=== PATIENT | male | born 1940 | race Asian ===

== ENCOUNTER 2016-12-01 08:00 | Outpatient (CLI) | payer MEDICARE ==
[2016-12-01 20:19] LABS: BASOPHILS # (AUTO) 0.1 10^3/uL (0.0-0.1); BASOPHILS % (AUTO) 0.9 %; EOSINOPHILS # (AUTO) 0.1 10^3/uL (0.0-0.7); EOSINOPHILS % (AUTO) 1.4 %; HCT - HEMATOCRIT 41.8 % (42.0-52.0); HGB - HEMOGLOBIN 13.7 g/dL (14.0-18.0); LYMPHOCYTES # (AUTO) 0.9 10^3/uL (1.5-3.5); LYMPHOCYTES % (AUTO) 12.5 %; MEAN CORPUSCULAR HEMOGLOBIN 28.2 pg (27.0-31.0); MEAN CORPUSCULAR HGB CONC 32.8 g/dL (32.0-36.0); MEAN PLATELET VOLUME 9.2 fL (7.4-11.4); MONOCYTES # (AUTO) 0.5 10^3/uL (0.0-1.0); MONOCYTES % (AUTO) 6.7 %; NEUTROPHILS # (AUTO) 5.8 10^3/uL (1.5-6.6); NEUTROPHILS % (AUTO) 78.5 %; NUCLEATED RED BLOOD CELLS AUTO 0.1 /100WBC; RED BLOOD COUNT 4.86 10^6/uL (4.70-6.10); RED CELL DISTRIBUTION WIDTH 13.1 % (12.0-15.0); UNCORRECTED WHITE BLOOD COUNT 7.3 x10^3/uL; WHITE BLOOD COUNT 7.3 x10^3/uL (4.8-10.8)
[2016-12-01 20:23] LABS: ALBUMIN/GLOBULIN RATIO 1.7 (1.0-2.2); BILIRUBIN,TOTAL 0.8 mg/dL (0.2-1.0); BUN - BLOOD UREA NITROGEN 17 mg/dL (6-20); CALCIUM 9.1 mg/dL (8.5-10.3); CARBON DIOXIDE - CO2 28 mmol/L (21-32); CHLORIDE 102 mmol/L (101-111); CHOL/HDL RATIO 4.6 (<5.0); CHOLESTEROL 207 mg/dL; CREATININE 0.9 mg/dL (0.6-1.2); GFR - MDRD 82 (>89); GLUCOSE 159 mg/dL (70-100); HDL CHOLESTEROL 45 mg/dL; LDL/HDL RATIO 2.9 (<3.6); POTASSIUM 3.7 mmol/L (3.5-5.0); SODIUM 138 mmol/L (135-145); TOTAL PROTEIN 7.4 g/dL (6.7-8.2); TRIGLYCERIDES 148 mg/dL; VLDL CHOLESTEROL 30 mg/dL
== END 2016-12-01 23:59 ==
LOC: LAB.N 08:00
PROVIDERS: ATTEND Nurse Practitioner Gerontology
DX: R03.0 Elevated blood-pressure reading, without diagnosis of hypertension (principal)
CPT/HCPCS: 36415; 80053; 80061; 85025

== ENCOUNTER 2018-07-01 15:03 | Outpatient (CLI) | payer MEDICARE ==
--- NOTE | 2018-07-02 15:43 | XRAY Report ---
Reason: HIP JOINT PAIN, RIGHT Procedure Date: 07/01/2018 Accession Number: [id number] / [id number] Procedure: XR - Hip w/Pelvis 2-3V RT CPT Code: FULL RESULT: EXAM: RIGHT HIP AND PELVIS RADIOGRAPHY EXAM DATE: 07/01/2018 03:10 PM. HISTORY: HIP JOINT PAIN, RIGHT. COMPARISONS: None. TECHNIQUE: 1 view of the pelvis and 1 view of the hip. FINDINGS: Bones: Right hip replacement in anatomic alignment. 1 mm lucency surrounding the stem. No acute fractures or dislocations. Joints: The bilateral hip, pubis symphysis, and sacroiliac joints are preserved. Soft Tissues: Normal. No soft tissue swelling. IMPRESSION: No evidence for acute osseous injury. RADIA
== END 2018-07-01 15:04 | disposition home or self-care (01) ==
LOC: DI 15:03
PROVIDERS: ATTEND Nurse Practitioner Gerontology
DX: M25.551 Pain in right hip (principal)

== ENCOUNTER 2019-01-05 08:34 | Day surgery (SDC) | payer MEDICARE ==
[~2019-01-05 08:34] MED LIST: BRIMONIDINE 0.2% OPHTH DROPS 5 ML ONE; BSS/LIDOCAINE/EPINEPHRINE 1 ML SYRINGE ONE; CYCLOPENTOLATE 1% OPHTH DROPS 2 ML ONE; EPINEPHrine 1 MG/ML AMP ONE; KETOROLAC 0.45% OPHTH DROPS ONE; PHENYLEPHRINE 2.5% OPHTH 2 ML DROPS ONE; PROPARACAINE 0.5% OPHTH DROPS 15 ML ONE; TIMOLOL 0.5% OPHTH DROPS ONE; TRIAMCIN/MOXIFLOX OPHTHALMIC 0.6 ML VIAL IO ONE; VANCOMYCIN OPHTHALMI 8MG/0.8ML 8 MG/0.8 ML SYRINGE IO ONE
[2019-01-05] MEDS ORDERED: CYCLOPENTOLATE 1% OPHTH DROPS 2 ML ONE (08:47)
[2019-01-05] MEDS ORDERED: PROPARACAINE 0.5% OPHTH DROPS 15 ML ONE (08:47)
[2019-01-05] MEDS ORDERED: PHENYLEPHRINE 2.5% OPHTH 2 ML DROPS ONE (08:47)
[2019-01-05] MEDS ORDERED: KETOROLAC 0.45% OPHTH DROPS ONE (08:47)
[2019-01-05] MEDS ORDERED: LACTATED RINGERS 500 ML IV ONE (08:48)
[2019-01-05] MEDS ORDERED: PHENYLEPHRINE 2.5% OPHTH 2 ML DROPS RIGHTEYE ONE (08:55)
[2019-01-05] MEDS ORDERED: CYCLOPENTOLATE 1% OPHTH DROPS 2 ML RIGHTEYE ONE (08:55)
[2019-01-05] MEDS ORDERED: PROPARACAINE 0.5% OPHTH DROPS 15 ML RIGHTEYE ONE (08:55)
[2019-01-05] MEDS ORDERED: KETOROLAC 0.45% OPHTH DROPS RIGHTEYE ONE (08:55)
--- NOTE | 2019-01-05 08:59 | ANESTHESIA ---
Pre-Anesthesia VS, & Labs - Diagnosis right senile combined cataract - Procedure right extraction cataract with lens implant Vital Signs: Temp Pulse Resp BP Pulse Ox 36 C L 74 14 178/69 H 100 01/05/19 08:53 01/05/19 08:53 01/05/19 08:53 01/05/19 08:53 01/05/19 08:53 Height 5 ft 4 in Weight (kg) 56 kg - NPO >8 hours Anes History & Medical History - Anesthetic History Anesthesia Complications: reports: No previous complications Family history of Anesthesia Complications: Denies Family history of Malignant Hyperthermia: Denies Exam General: Alert, Oriented x3, Cooperative, No acute distress Dental: Dentures full Upper, Dentures full Lower Mouth Openin Fingerbreadth Neck Mobility: Normal Mallampati classification: II Thyromental Distance: greater than 6 cm Respiratory: Lungs clear, Normal breath sounds, No respiratory distress, No accessory muscle use Cardiovascular: Normal S1, Normal S2 Plan Anesthesia Type: MAC Consent for Procedure(s) Verified and Reviewed: Yes Code Status: Attempt Resuscitation ASA classification: 2-Mild systemic disease Is this case an emergency?: No
[2019-01-05] MEDS ORDERED: TRIAMCIN/MOXIFLOX OPHTHALMIC 0.6 ML VIAL IO ONE ×3 (09:03→09:30)
[2019-01-05] MEDS ORDERED: BSS/LIDOCAINE/EPINEPHRINE 1 ML SYRINGE ONE (09:03)
[2019-01-05] MEDS ORDERED: EPINEPHrine 1 MG/ML AMP IVP ONE (09:28)
[2019-01-05] MEDS ORDERED: BRIMONIDINE 0.2% OPHTH DROPS 5 ML OPTH ONE (09:28)
[2019-01-05] MEDS ORDERED: BSS/LIDOCAINE/EPINEPHRINE 1 ML SYRINGE IO ONE ×2 (09:29)
[2019-01-05] MEDS ORDERED: CHONDR SULF/HYALURONATE SYRINGE IO ONE (09:29)
[2019-01-05] MEDS ORDERED: TIMOLOL 0.5% OPHTH DROPS OPTH ONE (09:29)
[2019-01-05] MEDS ORDERED: VANCOMYCIN OPHTHALMI 8MG/0.8ML 8 MG/0.8 ML SYRINGE IO ONE (09:30)
[2019-01-05] MEDS ORDERED: MIDAZOLAM 2 MG/2 ML VIAL IVP ONE (09:47)
--- NOTE | 2019-01-05 10:13 | OPERATIVE REPORT ---
DATE OF SERVICE: 01/05/2019 Physician: Shawn Ansari MD PREOPERATIVE DIAGNOSIS: Visually significant cataract, right eye. This was his first cataract surge ry. POSTOPERATIVE DIAGNOSIS: Visually significant cataract, right eye. This was his first cataract surg terrie. NAME OF PROCEDURE: Phacoemulsification with posterior chamber intraocular lens implant, right eye. SURGEON: Shawn Ansari MD ANESTHESIA: Monitored anesthesia care. COMPLICATIONS: None. OPERATIVE INDICATIONS: This is a 78-year-old man with progressive vision loss in the right eye due t o 4+ nuclear sclerotic, 2 to 3+ cortical, 2+ posterior subcapsular and vacuolar cataract. Best corre cted visual acuity was 20/80, with glare to 20/250 in the right eye. Indications for surgery are overall decrease in vision, difficulty seeing words on a computer screen, difficulty reading, difficulty seeing words, closed captions or game scores on TV, difficulty seeing street signs, difficulty driving in low light or at night, difficulty driving at night because of he adlights from other vehicles, and difficulty with glare or bright lights in any situation. He was co nsented at length concerning risks and benefits of cataract surgery, after which he expressed a dillon e to proceed with surgery. OPERATIVE PROCEDURE: The patient was taken to OR #3, and placed under monitored anesthesia care. Maldonado rgical timeout was conducted confirming correct patient, correct procedure, and correct surgical site . He was given topical anesthesia and prepped and draped in usual sterile fashion. The eye was ente red at the 12 and 9 o'clock positions. Intracameral Shugarcaine was injected into the anterior chamb er, followed by Viscoat. A continuous-tear curvilinear capsulorrhexis was performed. The nucleus wa s hydrodissected and phacoemulsified. The cortex was evacuated using automated infusion and aspirati on. Provisc was injected into the capsular bag, and a 19.5 diopter intraocular lens inserted in the bag. Approximately 0.8 mL of a mixture of triamcinolone, moxifloxacin and vancomycin was injected maldonado bconjunctivally in the superior quadrant for infection and inflammation prophylaxis. I and A was use d to evacuate the viscoelastic materials. The eye was inflated to physiologic pressure using balance d salt solution and found to be watertight. Patient was taken from the operating room in good condit ion and given postoperative instructions one occasion. TD: 01/05/2019 09:51
[2019-01-05 10:20] VITALS: BP 130/56
== END 2019-01-05 08:35 | disposition home or self-care (01) ==
LOC: SDS 08:34
PROVIDERS: ATTEND Ophthalmology
PROC: 08RJ3JZ Replacement of Right Lens with Synthetic Substitute, Percutaneous Approach (ICD-10-PCS; principal; 2019-01-05 08:00)
DX: H25.811 Combined forms of age-related cataract, right eye (principal); I10 Essential (primary) hypertension
CPT/HCPCS: 66984; A9270; J3490; V2632

== ENCOUNTER 2019-03-30 06:03 | Day surgery (SDC) | payer MEDICARE ==
[2019-03-30] MEDS ORDERED: KETOROLAC 0.45% OPHTH DROPS ONE (06:28)
[2019-03-30] MEDS ORDERED: PROPARACAINE 0.5% OPHTH DROPS 15 ML ONE (06:28)
[2019-03-30] MEDS ORDERED: PHENYLEPHRINE 2.5% OPHTH 2 ML DROPS ONE (06:28)
[2019-03-30] MEDS ORDERED: CYCLOPENTOLATE 1% OPHTH DROPS 2 ML ONE (06:28)
[2019-03-30] MEDS ORDERED: PROPARACAINE 0.5% OPHTH DROPS 15 ML LEFTEYE ONE ×3 (06:40→07:33)
[2019-03-30] MEDS ORDERED: PHENYLEPHRINE 2.5% OPHTH 2 ML DROPS LEFTEYE ONE (06:40)
[2019-03-30] MEDS ORDERED: CYCLOPENTOLATE 1% OPHTH DROPS 2 ML LEFTEYE ONE (06:40)
[2019-03-30] MEDS ORDERED: KETOROLAC 0.45% OPHTH DROPS LEFTEYE ONE (06:40)
[2019-03-30] MEDS ORDERED: LACTATED RINGERS 500 ML IV ONE (06:45)
--- NOTE | 2019-03-30 07:03 | ANESTHESIA ---
Pre-Anesthesia VS, & Labs - Diagnosis L senile combined cataract - Procedure L extraction cataract with IOL Vital Signs: Temp Pulse Resp BP Pulse Ox 36.4 C L 82 18 177/92 H 99 03/30/19 06:31 03/30/19 06:31 03/30/19 06:31 03/30/19 06:31 03/30/19 06:31 Height 5 ft 4 in Weight (kg) 56.7 kg - NPO >8 hours Home Medications and Allergies Lisinopril 5 mg PO DAILY 01/05/19 Allergies/Adverse Reactions: Allergies Allergy/AdvReac Type Severity Reaction Status Date / Time aspirin Allergy Unknown Verified 03/30/19 06:52 Anes History & Medical History - Medical History Cardiovascular: reports: None Pulmonary: reports: None Gastrointestinal: reports: None Urinary: reports: Frequency Musculoskeletal: reports: Gout Endocrine/Autoimmune: reports: None Skin: reports: None - Surgical History Eyes Ears Nose Throat (EENT): Cataracts Orthopedic: Hip replacement Exam General: Alert, Oriented x3, Cooperative Dental: Dentures full Upper, Dentures full Lower Mouth Openin Fingerbreadth Neck Mobility: Normal Mallampati classification: II Thyromental Distance: 4-6 cm Respiratory: Lungs clear, Normal breath sounds Cardiovascular: Regular rate Neurological: Normal speech Mental/Cognitive Status: Alert/Oriented X3, Normal for patient Cognitive Status: Within normal limits Plan Anesthesia Type: MAC Consent for Procedure(s) Verified and Reviewed: Yes Code Status: Attempt Resuscitation ASA classification: 2-Mild systemic disease Is this case an emergency?: No
[2019-03-30] MEDS ORDERED: EPINEPHrine 1 MG/ML AMP ONE (07:04)
[2019-03-30] MEDS ORDERED: TRIAMCIN/MOXIFLOX OPHTHALMIC 0.6 ML VIAL IO ONE ×3 (07:04→07:33)
[2019-03-30] MEDS ORDERED: BRIMONIDINE 0.2% OPHTH DROPS 5 ML ONE (07:04)
[2019-03-30] MEDS ORDERED: TIMOLOL 0.5% OPHTH DROPS ONE (07:05)
[2019-03-30] MEDS ORDERED: VANCOMYCIN OPHTHALMI 8MG/0.8ML 8 MG/0.8 ML SYRINGE IO ONE ×3 (07:05→07:33)
[2019-03-30] MEDS ORDERED: BSS/LIDOCAINE/EPINEPHRINE 1 ML SYRINGE ONE (07:05)
[2019-03-30] MEDS ORDERED: BRIMONIDINE 0.2% OPHTH DROPS 5 ML OPTH ONE ×2 (07:23→07:32)
[2019-03-30] MEDS ORDERED: TIMOLOL 0.5% OPHTH DROPS OPTH ONE ×2 (07:24→07:32)
[2019-03-30] MEDS ORDERED: CHONDR SULF/HYALURONATE SYRINGE IO ONE ×2 (07:24→07:32)
[2019-03-30] MEDS ORDERED: EPINEPHrine 1 MG/ML AMP IVP ONE ×2 (07:24→07:32)
[2019-03-30] MEDS ORDERED: BSS/LIDOCAINE/EPINEPHRINE 1 ML SYRINGE IO ONE ×2 (07:25→07:32)
[2019-03-30] MEDS ORDERED: MIDAZOLAM 2 MG/2 ML VIAL IVP ONE (07:35)
[2019-03-30] MEDS ORDERED: PROPOFOL 200 MG/20 ML VIAL IVP ONE (07:35)
[2019-03-30 08:07] VITALS: BP 133/59
--- NOTE | 2019-03-30 08:58 | OPERATIVE REPORT ---
DATE OF SERVICE: 03/30/2019 Physician: Shawn Ansari MD PREOPERATIVE DIAGNOSIS: Visually significant cataract, left eye. Cataract surgery was performed on the right eye on 01/05/2019. POSTOPERATIVE DIAGNOSIS: Visually significant cataract, left eye. Cataract surgery was performed on the right eye on 01/05/2019. PROCEDURE: Phacoemulsification with posterior chamber intraocular lens implant, left eye. SURGEON: Shawn Ansari MD ANESTHESIA: Monitored anesthesia care. COMPLICATIONS: There was a dehiscence of the capsule, probably early on in the case, but no vitreous presented and the lens was placed in the bag as usual. OPERATIVE INDICATIONS: This is a 78-year-old man with progressive vision loss in the left eye due to 4+ nuclear sclerotic, 2-3+ cortical, 2-3+ posterior subcapsular and vacuolar cataract. Best corrected visual acuity was 20/100 with glare to 20/400 in the left eye. Indications for surgery were overall decrease in vision, difficulty seeing words on the computer screen, difficulty reading, difficulty seeing words closed caption or game scores on TV, difficulty seeing street signs, difficulty driving in low light or night, difficulty driving at night because of headlights from other vehicles, and difficulty with glare or bright lights in any situation. He was consented at length concerning risks and benefits of cataract surgery, after which he expressed a desire to proceed with surgery. OPERATIVE PROCEDURE: The patient was taken into OR #3 and placed under monitored anesthesia care. A surgical timeout was conducted confirming the correct patient, correct procedure, and correct surgical site. He was given topical anesthesia and then prepped and draped in the usual sterile fashion. The eye was entered at the 6 and 3 o'clock positions. Intracameral Shugarcaine was injected into the anterior chamber, followed by Viscoat. A continuous-tear curvilinear capsulorrhexis was performed. The nucleus was hydrodissected and phacoemulsified. Of note, though, the patient was very active during the procedure and received multiple doses of Versed and propofol but continued to move. He was sleeping through most of the procedure but the movement did not rafal. Towards the end of the phacoemulsification, there seemed to be a dehiscence of the nasal capsule. There was no vitreous that presented to the wound and rather than remove the remaining cortex, and possibly further damage the capsule, I elected to leave some of the cortex, that mostly being in the inferior quadrant. Provisc was injected into the capsular bag and a 20.0 diopter intraocular lens was inserted into the bag. Approximately 0.8 mL of a mixture of triamcinolone, moxifloxacin and vancomycin was injected subconjunctivally in the superior quadrant for infection and inflammation prophylaxis. I&A was used to evacuate the viscoelastic material. The eye was inflated to physiologic pressure using balanced salt solution and found to be watertight. The patient was taken from the operating room in good condition and given postoperative instructions. TD: 03/30/2019 08:06 GRETTA
== END 2019-03-30 06:04 | disposition home or self-care (01) ==
LOC: SDS 06:03
PROVIDERS: ATTEND Ophthalmology
PROC: 08RK3JZ Replacement of Left Lens with Synthetic Substitute, Percutaneous Approach (ICD-10-PCS; principal; 2019-03-30 09:30)
DX: H25.812 Combined forms of age-related cataract, left eye (principal); H59.212 Accidental puncture and laceration of left eye and adnexa during an ophthalmic procedure; Y83.8 Other surgical procedures as the cause of abnormal reaction of the patient, or of later complication, without mention of misadventure at the time of the procedure; Y92.234 Operating room of hospital as the place of occurrence of the external cause; I10 Essential (primary) hypertension; M10.9 Gout, unspecified; Z87.891 Personal history of nicotine dependence
CPT/HCPCS: 66984; A9270; J3490; V2632

== ENCOUNTER 2019-08-18 14:54 | Outpatient (CLI) | payer MEDICARE ==
--- NOTE | 2019-08-21 00:01 | XRAY Report ---
Reason: KNEE JOINT PAIN Procedure Date: 08/18/2019 Accession Number: [id number] / [id number] Procedure: XRN - Knee 2 View RT CPT Code: FULL RESULT: EXAM: RIGHT KNEE RADIOGRAPHY EXAM DATE: 08/18/2019 03:31 PM. CLINICAL HISTORY: KNEE JOINT PAIN. COMPARISON: None. TECHNIQUE: 2 views. FINDINGS: Bones: No fractures or bone lesions. Joints: No effusion. No subluxations. Soft Tissues: Normal. No soft tissue swelling. IMPRESSION: 1. No acute osseous abnormalities. 2. No significant degenerative changes. RADIA
--- NOTE | 2019-08-21 00:04 | XRAY Report ---
Reason: RIGHT JOINT PAIN Procedure Date: 08/18/2019 Accession Number: [id number] / [id number] Procedure: XRN - Hip w/Pelvis 2-3V RT CPT Code: FULL RESULT: EXAM: RIGHT HIP RADIOGRAPHY EXAM DATE: 08/18/2019 03:31 PM. CLINICAL HISTORY: RIGHT JOINT PAIN. COMPARISON: HIP W/PELVIS 2-3V RT 07/01/2018 3:11 PM. TECHNIQUE: 2 views. FINDINGS: Bones: Stable appearance of right hip replacement. No fracture or hardware complication. Joints: Stable. Soft Tissues: Vascular calcifications. IMPRESSION: Stable appearance of right hip replacement. No evidence of fracture or hardware complication. RADIA
== END 2019-08-18 14:55 | disposition home or self-care (01) ==
LOC: DI.N 14:54
PROVIDERS: ATTEND Nurse Practitioner Gerontology
DX: M25.551 Pain in right hip (principal); M25.561 Pain in right knee; Z96.641 Presence of right artificial hip joint

== ENCOUNTER 2019-10-12 09:02 | Outpatient (CLI) | payer MEDICARE ==
[2019-10-12 12:55] LABS: HB2 TOTAL 14.3 g/dL; HEMOGLOBIN A1C 0.9 g/dL; HEMOGLOBIN A1C % 7.9 % (4.6-6.2)
== END 2019-10-12 23:59 | disposition home or self-care (01) ==
LOC: LAB.N 09:02
PROVIDERS: ATTEND Nurse Practitioner Gerontology
DX: R73.9 Hyperglycemia, unspecified (principal)
CPT/HCPCS: 36415; 83036

== ENCOUNTER 2020-11-14 08:00 | Outpatient (CLI) | payer MEDICARE ==
[2020-11-14 18:47] LABS: BASOPHILS # (AUTO) 0.1 10^3/uL (0.0-0.1); BASOPHILS % (AUTO) 0.6 %; EOSINOPHILS # (AUTO) 0.1 10^3/uL (0.0-0.7); EOSINOPHILS % (AUTO) 1.2 %; HGB - HEMOGLOBIN 14.6 g/dL (14.0-18.0); LYMPHOCYTES # (AUTO) 0.9 10^3/uL (1.5-3.5); LYMPHOCYTES % (AUTO) 10.6 %; MEAN CORPUSCULAR HEMOGLOBIN 28.2 pg (27.0-31.0); MEAN CORPUSCULAR HGB CONC 32.8 g/dL (32.0-36.0); MEAN CORPUSCULAR VOLUME 86.1 fL (80.0-94.0); MEAN PLATELET VOLUME 10.9 fL (7.4-11.4); MONOCYTES # (AUTO) 0.5 10^3/uL (0.0-1.0); MONOCYTES % (AUTO) 5.9 %; NEUTROPHILS # (AUTO) 6.7 10^3/uL (1.5-6.6); NEUTROPHILS % (AUTO) 80.5 %; PLT - PLATELET COUNT 272 10^3/uL (130-450); RED BLOOD COUNT 5.17 10^6/uL (4.70-6.10); WHITE BLOOD COUNT 8.4 x10^3/uL (4.8-10.8)
[2020-11-14 19:04] LABS: ALBUMIN 4.4 g/dL (3.2-5.5); ALBUMIN/GLOBULIN RATIO 1.3 (1.0-2.2); ALKALINE PHOSPHATASE 94 IU/L (42-121); ALT ALANINE AMINOTRANSFERASE 16 IU/L (10-60); AST ASPARTATE AMINOTRANSFERASE 20 IU/L (10-42); BILIRUBIN,TOTAL 0.6 mg/dL (0.2-1.0); BUN - BLOOD UREA NITROGEN 24 mg/dL (6-20); CALCIUM 9.7 mg/dL (8.5-10.3); CARBON DIOXIDE - CO2 26 mmol/L (21-32); CHLORIDE 99 mmol/L (101-111); CHOL/HDL RATIO 4.2 (<5.0); CHOLESTEROL 205 mg/dL; GLUCOSE 243 mg/dL (70-100); HDL CHOLESTEROL 49 mg/dL; LDL CHOLESTEROL,CALCULATED 131 mg/dL; LDL/HDL RATIO 2.7 (<3.6); TOTAL PROTEIN 7.7 g/dL (6.7-8.2); VLDL CHOLESTEROL 25 mg/dL
[2020-11-14 19:09] LABS: CREATININE,URINE 75.9 mg/dL; MICROALBUM/CREATININE RATIO,UR 52.7 ug/mg (<30.0)
[2020-11-14 20:44] LABS: HEMOGLOBIN A1c% 10.1 % (4.27-6.07)
== END 2020-11-14 23:59 | disposition home or self-care (01) ==
LOC: LAB.WCP 08:00
PROVIDERS: ATTEND Internal Medicine
DX: E11.9 Type 2 diabetes mellitus without complications (principal)
CPT/HCPCS: 36415; 80053; 80061; 82043; 82570; 83036; 83721; 84443; 85025

== ENCOUNTER 2021-02-20 08:42 | Outpatient (CLI) | payer MEDICARE, MEDICAID ==
[2021-02-20 12:20] LABS: ESTIMATED AVERAGE GLUCOSE 203 mg/dL (70-100); HEMOGLOBIN A1c% 8.7 % (4.27-6.07)
[2021-02-20 12:51] LABS: ALBUMIN 4.6 g/dL (3.2-5.5); ALBUMIN/GLOBULIN RATIO 1.5 (1.0-2.2); ALKALINE PHOSPHATASE 75 IU/L (42-121); ALT ALANINE AMINOTRANSFERASE 21 IU/L (10-60); AST ASPARTATE AMINOTRANSFERASE 20 IU/L (10-42); BUN - BLOOD UREA NITROGEN 33 mg/dL (6-20); CALCIUM 9.9 mg/dL (8.5-10.3); CARBON DIOXIDE - CO2 28 mmol/L (21-32); CHLORIDE 104 mmol/L (101-111); CHOL/HDL RATIO 2.8 (<5.0); CHOLESTEROL 131 mg/dL; CREATININE 1.2 mg/dL (0.6-1.2); GFR - MDRD 58 (>89); GLUCOSE 188 mg/dL (70-100); HDL CHOLESTEROL 46 mg/dL; LDL CHOLESTEROL,CALCULATED 71 mg/dL; LDL/HDL RATIO 1.5 (<3.6); POTASSIUM 4.3 mmol/L (3.5-5.0); SODIUM 141 mmol/L (135-145); TOTAL PROTEIN 7.7 g/dL (6.7-8.2); TRIGLYCERIDES 72 mg/dL; VLDL CHOLESTEROL 14 mg/dL
== END 2021-02-20 23:59 | disposition home or self-care (01) ==
LOC: LAB.WCP 08:42
PROVIDERS: ATTEND Internal Medicine
DX: I10 Essential (primary) hypertension (principal)
CPT/HCPCS: 36415; 80053; 80061; 83036; 83721; 83880

== ENCOUNTER 2021-08-28 08:00 | Outpatient (CLI) | payer MEDICARE, MEDICAID ==
[2021-08-28 12:32] LABS: ESTIMATED AVERAGE GLUCOSE 206 mg/dL (70-100); HEMOGLOBIN A1c% 8.8 % (4.27-6.07)
[2021-08-28 13:33] LABS: CALCIUM 9.3 mg/dL (8.5-10.3); CREATININE 1.1 mg/dL (0.6-1.2); POTASSIUM 3.9 mmol/L (3.5-5.0)
== END 2021-08-28 23:59 | disposition home or self-care (01) ==
LOC: LAB.WCP 08:00
PROVIDERS: ATTEND Internal Medicine
DX: E11.9 Type 2 diabetes mellitus without complications (principal)
CPT/HCPCS: 36415; 80048; 83036

== ENCOUNTER 2021-08-29 16:58 | Outpatient (CLI) | payer MEDICARE, MEDICAID ==
--- NOTE | 2021-08-29 22:51 | XRAY Report ---
PROCEDURE: Lumbar Spine 2 View INDICATIONS: RIGHT BACK PAIN, NO INJURY, ASSESS FOR DJD TECHNIQUE: 3 views of the lumbar spine were acquired. COMPARISON: None. FINDINGS: Bones: 5 [id number] vertebrae are present. There is normal bony alignment. No vertebral body compression fractures. No suspicious bony lesions. Generalized decreased osseous mineralization pre sent. Mild facet arthropathy noted in the lower lumbar spine Soft tissues: Overlying bowel gas pattern is normal. No suspicious soft tissue calcifications. Ath erosclerotic calcification of the abdominal aorta without evidence of aneurysm. IMPRESSION: Osteopenia and mild degenerative change without fracture or malalignment Reviewed by: Blake Blanc MD on 08/29/2021 9:50 PM [facility] Approved by: Blake Blanc MD on 08/29/2021 9:50 PM [facility] Station ID: [id number]
--- NOTE | 2021-08-31 15:49 | XRAY Report ---
PROCEDURE: Hip w/Pelvis 2-3V RT INDICATIONS: RIGHT HIP PAIN PRIOR THR IN 2019, ASSESS FOR HARDWARE LOOSENING TECHNIQUE: AP pelvis with lateral view(s) of the right hip(s). COMPARISON: 08/18/2019 (report only), 07/01/2018 FINDINGS: Bones: Right hip arthroplasty hardware is seen. There is progressive thinning of the [place] acetabul um medially. The hardware itself is unremarkable. Mild, stable heterotopic bone formation can be seen. No fractures or dislocations. Pelvic ring appears intact. No suspicious bony lesions. Soft tissues: The visualized bowel gas pattern is normal. No suspicious soft tissue calcifications. Atherosclerotic calcification is seen. IMPRESSION: The right prosthetic hip appears to be eroding through the [place] acetabulum medially. If clinically appropriate, please consider a follow-up CT for further evaluation. The hardware itself appears intact. Reviewed by: Nixon Fong MD on 08/31/2021 2:48 PM [facility] Approved by: Nixon Fong MD on 08/31/2021 2:48 PM [facility] Station ID: [id number]
== END 2021-08-29 16:59 | disposition home or self-care (01) ==
LOC: DI.N 16:58
PROVIDERS: ATTEND Internal Medicine
DX: Z96.641 Presence of right artificial hip joint (principal); M85.88 Other specified disorders of bone density and structure, other site; M47.816 Spondylosis without myelopathy or radiculopathy, lumbar region

== ENCOUNTER 2021-11-24 08:00 | Outpatient (CLI) | payer MEDICARE, MEDICAID ==
[2021-11-24 12:04] LABS: ESTIMATED AVERAGE GLUCOSE 200 mg/dL (70-100); HEMOGLOBIN A1c% 8.6 % (4.27-6.07)
[2021-11-24 12:09] LABS: ALBUMIN 4.3 g/dL (3.2-5.5); ALBUMIN/GLOBULIN RATIO 1.4 (1.0-2.2); ALKALINE PHOSPHATASE 66 IU/L (42-121); ALT ALANINE AMINOTRANSFERASE 24 IU/L (10-60); AST ASPARTATE AMINOTRANSFERASE 24 IU/L (10-42); BILIRUBIN,TOTAL 0.6 mg/dL (0.2-1.0); BUN - BLOOD UREA NITROGEN 34 mg/dL (6-20); CALCIUM 9.6 mg/dL (8.5-10.3); CARBON DIOXIDE - CO2 24 mmol/L (21-32); CHLORIDE 103 mmol/L (101-111); CHOLESTEROL 128 mg/dL; CREATININE 1.6 mg/dL (0.6-1.2); GFR - MDRD 42 (>89); GLUCOSE 156 mg/dL (70-100); HDL CHOLESTEROL 65 mg/dL; LDL CHOLESTEROL,CALCULATED 53 mg/dL; LDL/HDL RATIO 0.8 (<3.6); POTASSIUM 3.9 mmol/L (3.5-5.0); SODIUM 138 mmol/L (135-145); TOTAL PROTEIN 7.4 g/dL (6.7-8.2); TRIGLYCERIDES 49 mg/dL; VLDL CHOLESTEROL 10 mg/dL
== END 2021-11-24 23:59 | disposition home or self-care (01) ==
LOC: LAB.WCP 08:00
PROVIDERS: ATTEND Internal Medicine
DX: E11.9 Type 2 diabetes mellitus without complications (principal); E78.5 Hyperlipidemia, unspecified
CPT/HCPCS: 36415; 80053; 80061; 83036; 83721

== ENCOUNTER 2021-12-01 22:39 | Emergency (ER) | payer MEDICARE, MEDICAID ==
[2021-12-01] MEDS ORDERED: SODIUM CHLORIDE 0.9% 500 ML IV STA (23:00)
[2021-12-01 23:20] LABS: VBG BASE EXCESS -5.1 mmol/L (-2 - +2); VBG HCO3 18.5 mmol/L (23-28); VBG OXYGEN SATURATION 79.7 % (60-80); VBG PCO2 30.4 mmHg (41-51); VBG PH 7.402 (7.31-7.41); VBG PO2 41.2 mmHg (25-47); VBG TOTAL CO2 19.4 mmol/L (24-29)
[2021-12-01 23:25] LABS: BASOPHILS % (AUTO) 0.3 %; HCT - HEMATOCRIT 37.5 % (42.0-52.0); HGB - HEMOGLOBIN 12.7 g/dL (14.0-18.0); LYMPHOCYTES # (AUTO) 0.2 10^3/uL (1.5-3.5); LYMPHOCYTES % (AUTO) 5.4 %; MEAN CORPUSCULAR HEMOGLOBIN 28.7 pg (27.0-31.0); MEAN CORPUSCULAR HGB CONC 33.9 g/dL (32.0-36.0); MEAN CORPUSCULAR VOLUME 84.8 fL (80.0-94.0); MEAN PLATELET VOLUME 10.2 fL (7.4-11.4); MONOCYTES # (AUTO) 0.2 10^3/uL (0.0-1.0); MONOCYTES % (AUTO) 5.4 %; NEUTROPHILS # (AUTO) 3.1 10^3/uL (1.5-6.6); NEUTROPHILS % (AUTO) 88.6 %; PLT - PLATELET COUNT 110 10^3/uL (130-450); RED BLOOD COUNT 4.42 10^6/uL (4.70-6.10); RED CELL DISTRIBUTION WIDTH 12.5 % (12.0-15.0); WHITE BLOOD COUNT 3.5 x10^3/uL (4.8-10.8)
[2021-12-01 23:31] LABS: ALBUMIN/GLOBULIN RATIO 1.1 (1.0-2.2); ALKALINE PHOSPHATASE 54 IU/L (42-121); ALT ALANINE AMINOTRANSFERASE 26 IU/L (10-60); AST ASPARTATE AMINOTRANSFERASE 44 IU/L (10-42); BILIRUBIN,TOTAL 0.6 mg/dL (0.2-1.0); BUN - BLOOD UREA NITROGEN 48 mg/dL (6-20); CALCIUM 8.9 mg/dL (8.5-10.3); CARBON DIOXIDE - CO2 18 mmol/L (21-32); CHLORIDE 99 mmol/L (101-111); CREATININE 1.7 mg/dL (0.6-1.2); GFR - MDRD 39 (>89); GLUCOSE 334 mg/dL (70-100); KETONES, SERUM (ACETEST) NEGATIVE (NEGATIVE); LIPASE 32 U/L (22-51); SODIUM 132 mmol/L (135-145); TOTAL PROTEIN 7.8 g/dL (6.7-8.2)
[2021-12-02 00:32] LABS: BILIRUBIN,URINE NEGATIVE (NEGATIVE); GLUCOSE, URINE (UA) 250 mg/dL (NEGATIVE); KETONES,URINE (UA) TRACE mg/dL (NEGATIVE); LEUKOCYTE ESTERASE, URINE NEGATIVE (NEGATIVE); NITRITE,URINE NEGATIVE (NEGATIVE); OCCULT BLOOD,URINE SMALL (NEGATIVE); PH,URINE 5.5 PH (5.0-7.5); PROTEIN,URINE 30 mg/dL (NEGATIVE); UROBILINOGEN,URINE 0.2 (NORMAL) E.U./dL (NORMAL)
[2021-12-02 00:33] LABS: CLARITY,URINE CLEAR (CLEAR)
[2021-12-02 00:38] LABS: BACTERIA,URINE None Seen /HPF (None Seen); RBC,URINE 0-5 /HPF (0-5); SQUAMOUS EPITHELIAL CELL,UR RARE Squamous (<= Few); WBC,URINE 0-3 /HPF (0-3)
--- NOTE | 2021-12-02 02:05 | ED Physician Documentation ---
History of Present Illness - Stated complaint Stated Complaint: DIFF STANDING,SHAKING - Chief complaint Chief Complaint: Neuro - History obtained from History obtained from: Family () - Additonal information Additional information: 81yM with pmh dementia p/w difficulty standing, shaking, and decreased urine output over the past several days. patient has dementia at baseline as well as chronic pain in hips and legs but has been worsening over past several months. reports he has had increased nonproductive cough over past 2 days but no apparent SOA, fever or leg swelling. patient unable to give history 2/2 dementia Review of Systems Unable to obtain: Dementia Constitutional: denies: Fever, Chills Respiratory: reports: Cough. denies: Dyspnea PD PAST MEDICAL HISTORY - Past Medical History Past Medical History: Yes Cardiovascular: None Respiratory: None Endocrine/Autoimmune: None GI: None : Frequency Psych: None Musculoskeletal: Gout Derm: None - Past Surgical History Past Surgical History: Yes Ortho: Hip replacement HEENT: Cataracts - Present Medications Home Medications: Ambulatory Orders Medication Instructions Recorded Confirmed lisinopriL [Lisinopril] 5 mg PO DAILY 01/05/19 01/05/19 - Allergies Allergies/Adverse Reactions: Allergies Allergy/AdvReac Type Severity Reaction Status Date / Time aspirin Allergy Unknown Verified 12/01/21 22:56 - Social History Does the pt smoke?: No Smoking Status: Never smoker Does the pt drink ETOH?: No Does the pt have substance abuse?: No - Immunizations Immunizations are current?: Yes PD ED PE NORMAL - Vitals Vital signs reviewed: Yes - General General: No acute distress, Other (elderly gentleman in NAD) - HEENT HEENT: Atraumatic, PERRL, EOMI - Neck Neck: Supple, no meningeal sign - Cardiac Cardiac: RRR - Respiratory Respiratory: No respiratory distress, Clear bilaterally - Abdomen Abdomen: Non tender, Non distended - Back Back: No spinal TTP - Derm Derm: Normal color, Warm and dry - Extremities Extremities: No deformity, No edema - Neuro Neuro: No motor deficit, No sensory deficit, Other (dementia at baseline) - Psych Psych: Other (calm, resting quietly in bed. dementia at baseline) Results - Vitals Vitals: Vital Signs - 24 hr 12/01/21 12/02/21 12/02/21 22:42 00:55 02:00 Temperature 36.1 C L 36.5 C Heart Rate 89 74 71 Respiratory 16 16 16 Rate Blood Pressure 122/59 L 118/55 L 110/59 L O2 Saturation 95 95 96 Oxygen O2 Source Room air - Labs Labs: Laboratory Tests 12/01/21 12/01/21 12/01/21 23:13 23:13 23:13 WBC 3.5 L RBC 4.42 L Hgb 12.7 L Hct 37.5 L MCV 84.8 MCH 28.7 MCHC 33.9 RDW 12.5 Plt Count 110 L MPV 10.2 Neut # (Auto) 3.1 Lymph # (Auto) 0.2 L [place] # (Auto) 0.2 Eos # (Auto) 0.0 Baso # (Auto) 0.0 Absolute Nucleated RBC 0.00 Nucleated RBC % 0.0 VBG pH 7.402 VBG pCO2 30.4 L VBG pO2 41.2 VBG HCO3 18.5 L VBG Total CO2 19.4 L VBG O2 Saturation 79.7 VBG Base Excess -5.1 L Sodium 132 L Potassium 4.0 Chloride 99 L Carbon Dioxide 18 L Anion Gap 15.0 H BUN 48 H Creatinine 1.7 H Estimated GFR (MDRD) 39 L Glucose 334 H Calcium 8.9 Total Bilirubin 0.6 AST 44 H ALT 26 Alkaline Phosphatase 54 Total Protein 7.8 Albumin 4.0 Globulin 3.8 Albumin/Globulin Ratio 1.1 Lipase 32 Urine Color Urine Clarity Urine pH Ur Specific [place] Urine Protein Urine Glucose (UA) Urine Ketones Urine Occult Blood Urine Nitrite Urine Bilirubin Urine Urobilinogen Ur Leukocyte Esterase Urine RBC Urine WBC Ur Squamous Epith Cells Urine Bacteria Ur Microscopic Review Urine Culture Comments Serum Ketones NEGATIVE 12/02/21 00:20 WBC RBC Hgb Hct MCV MCH MCHC RDW Plt Count MPV Neut # (Auto) Lymph # (Auto) [place] # (Auto) Eos # (Auto) Baso # (Auto) Absolute Nucleated RBC Nucleated RBC % VBG pH VBG pCO2 VBG pO2 VBG HCO3 VBG Total CO2 VBG O2 Saturation VBG Base Excess Sodium Potassium Chloride Carbon Dioxide Anion Gap BUN Creatinine Estimated GFR (MDRD) Glucose Calcium Total Bilirubin AST ALT Alkaline Phosphatase Total Protein Albumin Globulin Albumin/Globulin Ratio Lipase Urine Color YELLOW Urine Clarity CLEAR Urine pH 5.5 Ur Specific [place] 1.025 Urine Protein 30 H Urine Glucose (UA) 250 H Urine Ketones TRACE Urine Occult Blood SMALL H Urine Nitrite NEGATIVE Urine Bilirubin NEGATIVE Urine Urobilinogen 0.2 (NORMAL) Ur Leukocyte Esterase NEGATIVE Urine RBC 0-5 Urine WBC 0-3 Ur Squamous Epith Cells RARE Squamous Urine Bacteria None Seen Ur Microscopic Review INDICATED Urine Culture Comments NOT INDICATED Serum Ketones PD MEDICAL DECISION MAKING - ED course ED course: 81yM p/w weakness progressive over past several months, with concern for decreased po intake recently and decreased urine output. also with nonproductive cough X 2 days per . patient is vaccinated against covid but does not have his booster. covid swab sent. labwork with signs of mild dehydration/tai. return precautions given. plan to f/u with pmd Dr. Saavedra as outpatient. Departure - Departure Disposition: 01 Home, Self Care Clinical Impression: Weakness, Cough, Shaking, Decreased appetite Condition: Stable Instructions: ED Weakness UKO Comments: Your was seen in the ED for weakness, shaking and a cough. His labwork is indicating he is mildly dehydrated and needs to drink more fluids. A covid swab was sent which will result in a few days. You can view results on the patient health portal on the [facility] website. Please follow up with your primary Dr. Saavedra and return to the ED if he has new or worsening symptoms or you have other concerns.
[2021-12-02 02:19] VITALS: BP 110/59
--- NOTE | 2021-12-02 08:22 | XRAY Report ---
PROCEDURE: Chest 1 View X-Ray INDICATIONS: cough X 2 days TECHNIQUE: One view of the chest was acquired. COMPARISON: None FINDINGS: Surgical changes and devices: None. Lungs and pleura: No pleural effusions or pneumothorax. Mild patchy airspace opacity within the righ t upper and lower lobes. Mediastinum: Mediastinal contours appear normal. Heart size is normal. Bones and chest wall: No suspicious bony lesions. Overlying soft tissues appear unremarkable. IMPRESSION: Right lung pneumonia. Concordant with preliminary interpretation. Follow-up PA and lateral chest x-ra ys or chest CT is recommended to ensure resolution, and to exclude underlying neoplasm. Reviewed by: Matthew Vargas MD on 12/02/2021 8:21 AM [facility] Approved by: Matthew Vargas MD on 12/02/2021 8:21 AM [facility] Station ID: [id number]
== END 2021-12-02 03:09 | disposition home or self-care (01) ==
LOC: ED 22:39
DX: U07.1 COVID-19 (principal); R25.1 Tremor, unspecified; R53.1 Weakness; R05.9 Cough, unspecified; R63.0 Anorexia
CPT/HCPCS: 36415; 71045; 80053; 81001; 82009; 82803; 83690; 85025; 99282; 99284; U0004; 81003; 87086

== ENCOUNTER 2021-12-07 21:37 | Inpatient (IN) | payer MEDICAID, MEDICARE ==
[2021-12-07] MEDS ORDERED: SODIUM CHLORIDE 0.9% 1,000 ML IV STA (21:56)
[2021-12-07 22:12] LABS: BASOPHILS % (AUTO) 0.2 %; EOSINOPHILS % (AUTO) 0.1 %; HCT - HEMATOCRIT 41.1 % (42.0-52.0); HGB - HEMOGLOBIN 13.4 g/dL (14.0-18.0); LYMPHOCYTES # (AUTO) 0.4 10^3/uL (1.5-3.5); LYMPHOCYTES % (AUTO) 4.2 %; MEAN CORPUSCULAR HEMOGLOBIN 28.3 pg (27.0-31.0); MEAN CORPUSCULAR HGB CONC 32.6 g/dL (32.0-36.0); MEAN CORPUSCULAR VOLUME 86.7 fL (80.0-94.0); MEAN PLATELET VOLUME 9.8 fL (7.4-11.4); MONOCYTES # (AUTO) 0.6 10^3/uL (0.0-1.0); NEUTROPHILS # (AUTO) 8.2 10^3/uL (1.5-6.6); NEUTROPHILS % (AUTO) 88.3 %; PLT - PLATELET COUNT 277 10^3/uL (130-450); RED BLOOD COUNT 4.74 10^6/uL (4.70-6.10); RED CELL DISTRIBUTION WIDTH 12.4 % (12.0-15.0); WHITE BLOOD COUNT 9.2 x10^3/uL (4.8-10.8)
[2021-12-07 22:30] LABS: ALBUMIN 3.3 g/dL (3.2-5.5); ALBUMIN/GLOBULIN RATIO 0.7 (1.0-2.2); BILIRUBIN,TOTAL 1.3 mg/dL (0.2-1.0); CALCIUM 9.5 mg/dL (8.5-10.3); CREATININE 1.1 mg/dL (0.6-1.2); POTASSIUM 4.8 mmol/L (3.5-5.0); TOTAL PROTEIN 8.1 g/dL (6.7-8.2)
--- NOTE | 2021-12-07 23:23 | XRAY Report ---
PROCEDURE: Chest 1 View X-Ray INDICATIONS: chest pain TECHNIQUE: One view of the chest was acquired. COMPARISON: Chest X-ray, 12/02/2021 FINDINGS: Surgical changes and devices: None. Lungs and pleura: Infiltrate in right lung has increased. There is mild left lower lobe infiltrates . No pleural effusions or pneumothorax. Mediastinum: Mediastinal contours appear normal. Heart size is normal. Bones and chest wall: No suspicious bony lesions. Overlying soft tissues appear unremarkable. IMPRESSION: Screening of right pneumonia and new left lower lobe pneumonia. Reviewed by: Sia Hayden MD on 12/07/2021 11:22 PM PST Approved by: Sia Hayden MD on 12/07/2021 11:22 PM PST Station ID: [id number]
--- NOTE | 2021-12-07 23:42 | ED Physician Documentation ---
PD HPI ALTERED MENTAL STATUS - Stated complaint Stated Complaint: LETHARGIC - Chief complaint Chief Complaint: Resp - History obtained from History obtained from: Family - History of Present Illness Timing - onset: Today Timing - duration: Days (4) Timing - details: Gradual onset, Still present Quality / character: Less responsive Associated symptoms: Dyspnea, Cough, General weakness. No: Fever Contributing factors: Diabetic, Other (COVID +) Basline status: Ambulatory, Confused Similar symptoms before: Has not had sx before Recently seen: Emergency Dept - Additional information Additional information: 81-year-old male with advanced dementia has been feeling over the past 2 months and over the past week he has developed a cough and decreased oral intake. He was seen in the emergency department 4 days ago found to be dehydrated and with a cough. A nasal swab for COVID was done that day and has turned up positive. The patient has had diminished alertness today.Patient's has brought him here to the emergency department wanting to hydrate him again as this seemed to help quite a bit previously. Review of Systems Constitutional: denies: Fever Eyes: denies: Decreased vision Ears: denies: Ear pain Nose: denies: Rhinorrhea / runny nose Throat: denies: Sore throat Cardiac: denies: Chest pain / pressure Respiratory: reports: Dyspnea, Cough GI: denies: Vomiting, Diarrhea : denies: Dysuria, Frequency Skin: denies: Rash Musculoskeletal: denies: Neck pain, Back pain, Extremity pain Neurologic: reports: Generalized weakness, Confused, Altered mental status. denies: Focal weakness, Numbness PD PAST MEDICAL HISTORY - Past Medical History Past Medical History: Yes Cardiovascular: Hypertension, High cholesterol Respiratory: None Endocrine/Autoimmune: Type 1 diabetes GI: None : Frequency Psych: None Musculoskeletal: Gout Derm: None - Past Surgical History Past Surgical History: Yes Ortho: Hip replacement HEENT: Cataracts - Present Medications Home Medications: Ambulatory Orders Medication Instructions Recorded Confirmed Miconazole Nitrate [Athlete's Foot] 1 spr TOP TID 14 Days #150 gm 12/02/21 Glimepiride [Amaryl] 4 mg PO DAILY 12/07/21 12/07/21 Lisinopril [Zestril] 10 mg PO DAILY 12/07/21 12/07/21 Rosuvastatin Calcium [Crestor] 10 mg PO DAILY 12/07/21 12/07/21 risperiDONE [Risperdal] 0.5 mg PO QPM 12/07/21 12/07/21 - Allergies Allergies/Adverse Reactions: Allergies Allergy/AdvReac Type Severity Reaction Status Date / Time aspirin Allergy Unknown Verified 12/07/21 21:59 - Social History Does the pt smoke?: No Smoking Status: Never smoker Does the pt drink ETOH?: No Does the pt have substance abuse?: No - Immunizations Immunizations are current?: Yes - POLST Patient has POLST: No PD ED PE NORMAL - Vitals Vital signs reviewed: Yes (Tachycardic and hypertensive) - General General: No acute distress, Well developed/nourished, Other (81-year-old male laying with his eyes closed does not respond to verbal instructions. 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, No motor deficit, No sensory deficit Eye Opening: To Voice Motor: Localizes to Pain Verbal: Confused GCS Score: 12 - Psych Psych: Normal mood, Normal affect Results - Vitals Vitals: Vital Signs - 24 hr 12/07/21 12/07/21 12/07/21 21:59 22:13 22:34 Temperature 36.5 C Heart Rate 106 H 111 H 111 H Respiratory 22 19 27 H Rate Blood Pressure 180/77 H 172/76 H 181/78 H O2 Saturation 100 100 90 L 12/07/21 12/07/21 12/08/21 22:53 23:21 00:06 Temperature Heart Rate 106 H 103 H 106 H Respiratory 25 H 23 21 Rate Blood Pressure 185/86 H 190/87 H 166/75 H O2 Saturation 97 98 97 Oxygen O2 Source Nasal cannula Oxygen Flow Rate 2 - Labs Labs: Laboratory Tests 12/07/21 12/07/21 12/07/21 22:00 22:00 22:00 WBC 9.2 RBC 4.74 Hgb 13.4 L Hct 41.1 L MCV 86.7 MCH 28.3 MCHC 32.6 RDW 12.4 Plt Count 277 MPV 9.8 Neut # (Auto) 8.2 H Lymph # (Auto) 0.4 L Wake # (Auto) 0.6 Eos # (Auto) 0.0 Baso # (Auto) 0.0 Absolute Nucleated RBC 0.00 Nucleated RBC % 0.0 Sodium 145 Potassium 4.8 Chloride 105 Carbon Dioxide 23 Anion Gap 17.0 H BUN 27 H Creatinine 1.1 Estimated GFR (MDRD) 64 L Glucose 317 H Lactic Acid 3.9 H* Calcium 9.5 Total Bilirubin 1.3 H AST 43 H ALT 38 Alkaline Phosphatase 99 Total Protein 8.1 Albumin 3.3 Globulin 4.8 H Albumin/Globulin Ratio 0.7 L Lipase 26 - Rads (name of study) Chest Radiology: Prelim report reviewed (Impression: screening(sic) (worsening) right pneumonia and new left lower lobe pneumonia), EMP read indepedently (looks like COVID pneumonia has blossomed), See rad report Procedures - IVC sono (time) 22 Bedside IVC sono: IVC measures (cm), IVC collapsed c insp (cm) (complete), Dehydration (est 1 liter deficit) PD MEDICAL DECISION MAKING - ED course Complexity details: reviewed old records, reviewed results, re-evaluated patient, considered differential, d/w family ED course: 81-year-old male with advanced dementia presents to the emergency department with diminished alertness with a diagnosis of COVID. On x-ray he appears to have COVID pneumonia that has worsened over the past 4 days. He is only mildly dehydrated. When we place fluid into the patient he has increased alertness but makes no sense on what he is talking about to his . His oxygen saturation has dipped to 89-90% on room air and 100% on 2l n/c. The case is reviewed with Dr. Garcia and she has recommended admission. Departure - Departure Disposition: 66 [facility] DC/Xfer Clinical Impression: Dehydration, Pneumonia due to COVID-19 virus AMS (altered mental status) Qualifiers: Altered mental status type: delirium Qualified Code(s): R41.0 - Disorientation, unspecified
[2021-12-08] MEDS ORDERED: SODIUM CHLORIDE 0.9% 1,000 ML IV STA (00:17)
[2021-12-08] MEDS ORDERED: ONDANSETRON 4 MG/2 ML VIAL IVP PRN (00:31)
[2021-12-08] MEDS ORDERED: DEXAMETHASONE 10 MG/ML VIAL IVP STA (00:35)
--- NOTE | 2021-12-08 00:41 | HISTORY & PHYSICAL EXAMINATION ---
Chief Complaint - Chief Complaint Chief Complaint: Lethargic History of Present Illness - Admitted From Admitted From:: ED - History Obtained From History obtained from: ED provide and the patient's . - History of Present Illness HPI Comment/Other: This is an 81-year-old male of [place] descent who lives with his at home, has advanced dementia and she is his caregiver. He has a history of diabetes on Amaryl, hypertension on FREDIS inhibitor and takes Risperdal. The patient developed a cough and was brought by his to the ED on Dec 02 (6 days ago) and work-u p showed that he was very dehydrated, got 1 L fluid. He had unremarkable vital sugns but a low WBC of 3.5, and a chest x-ray was read as having R-sided pneumonia. A Covid swab was taken and sent out for results. The patient was discharged after he was IV hydrated, since his mentation had come back to his baseline. Over the past 4 days he has continued to have a cough and now has worsening appetite, decreased p.o. intake, and today was spitting out his food and meds and was lethargic and the again brought him to the ED. His labs now show continued prerenal azotemia but not as severe, and in those 4 days his Covid swab has returned back positive. A new chest x-ray done today shows the persistent right-sided infiltrate and a new left-sided infiltrate. His other labs are remarkable for a lactic acid level elevated at 3.9 and elevated anion gap of 17. He is also tachycardic at 111. His initial oxygen saturation was normal on room air and later (possibly after 1 L fluid had already been given), his saturation dropped to 90% on room air and he is now requiring 2 L of oxygen supplemental. The patient is being admitted to treat sepsis from presumed Covid pneumonia and possible community-acquired pneumonia. I spoke to the about management and he is a full code and she would want him to go on a ventilator if it is needed. History - Past Medical History Cardiovascular: reports: Hypertension, High cholesterol Respiratory: reports: None Neuro: reports: Dementia Endocrine/Autoimmune: reports: Type 2 diabetes GI: reports: None : reports: Frequency Psych: reports: Other (Unknown if he has dementia with behavioral disturbance) Musculoskeletal: reports: Gout Derm: reports: None MRSA Hx?: No - Past Surgical History Ortho: reports: Hip replacement HEENT: reports: Cataracts - Family & Social History Family History: Other family: Alive and Well (3 daughters and 1 son) Living arrangement: At home Living Situation: With spouse/s.o. Social History Notes: He lives with his . She is his caregiver. He no longer drives since the hip surgery. He does not smoke, having quit 20 years ago and he drinks no alcohol. - Substance History Use: Uses substance without health or social issues: NONE - POLST Patient has POLST: No Meds/Allgy - Home Medications Home Medications: Ambulatory Orders Medication Instructions Recorded Confirmed Miconazole Nitrate [Athlete's Foot] 1 spr TOP TID 14 Days #150 gm 12/02/21 Glimepiride [Amaryl] 4 mg PO DAILY 12/07/21 12/07/21 Lisinopril [Zestril] 10 mg PO DAILY 12/07/21 12/07/21 Rosuvastatin Calcium [Crestor] 10 mg PO DAILY 12/07/21 12/07/21 risperiDONE [Risperdal] 0.5 mg PO QPM 12/07/21 12/07/21 - Allergies Allergies/Adverse Reactions: Allergies Allergy/AdvReac Type Severity Reaction Status Date / Time aspirin Allergy Unknown Verified 12/07/21 21:59 Review of Systems - Constitutional Constitutional: reports: Poor appetite (He did not have a fever, according to the ) - Respiratory Respiratory: reports: Cough - Neurological Neurological: reports: Other (He walks with a cane ever since the hip surgery.) - Endocrine Endocrine: reports: Other (The does fingerstick checks on him every night) - All Other Systems All Other Systems: reports: Reviewed and negative Exam - Vital Signs Reviewed Vital Signs: Yes Vital Signs: Vital Signs x48h Temp Pulse Resp BP Pulse Ox 12/08/21 00:20 36.8 C 108 H 19 166/75 H 97 12/08/21 00:06 106 H 21 166/75 H 97 12/07/21 23:21 103 H 23 190/87 H 98 12/07/21 22:53 106 H 25 H 185/86 H 97 12/07/21 22:34 111 H 27 H 181/78 H 90 L 12/07/21 22:13 111 H 19 172/76 H 100 12/07/21 21:59 36.5 C 106 H 22 180/77 H 100 - Physical Exam General Appearance: positive: No acute distress, Lethargic Eyes Bilateral: positive: Normal inspection, No lid inflammation ENT: positive: ENT inspection nml Neck: positive: Nml inspection, No JVD Respiratory: positive: No respiratory distress, Other (diminished breath sounds) Cardiovascular: positive: Regular rate & rhythm, No murmur Abdomen: positive: Non-tender, No distention Skin: positive: Warm, Dry Extremities: positive: Non-tender, No pedal edema Neurologic/Psychiatric: positive: Other (Asleep, awakens and opens eyes to his name, appears confused, is moving all extremities spontaneously. 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 We will treat the underlying pneumonia. Continue with IV fluids. Since he desaturated when the IV fluids were given, there is concern for CHF, therefore will not give saline at a rate of 150cc/hour but decrease it to 100cc/hour. We will obtain an EKG because of his tachycardia. We will consider obtaining a complete Echo because of the desaturations and tachycardia . Follow WBC daily Follow Lactic Acid level till it normalizes (2) Pneumonia due to COVID-19 virus Conclusion/Plan: The patient had no indications for admission when he was here on 11/01/2021 with normal VS and O2 saturation. The swab for Covid was a send out taken on 11/01/21, thus the result has only returned recently and is positive. He now has oxygen desaturation, needing supplemental oxygen. We will start Remdesivir (as he is within the 10 day window from Dx, his (+) Dx was from a swab test done 6 days ago), and will treat with iv Decadron. Begin isolation precautions. Continue supplemental O2, weaning down when possible. Will check a D-dimer and if it is elevated we will give therapeutic Lovenox, not just prophylactic Lovenox dosing. (3) CAP (community acquired pneumonia) Conclusion/Plan: Has lobar consolidation which could also be a bacterial pneumonia and it has worsened since the chest x-ray from 11/01/2021. Will obtain sputum and send for culture We will begin empiric IV Ceftriaxone and Zithromax. Continue supplemental O2, weaning down when possible. Will start Florastor. Will start Mucinex for pulmonary toilet (4) AMS (altered mental status) Conclusion/Plan: This is likely related to his sepsis, on top of his advanced dementia. He is not back to his usual baseline, despite IV fluids already given in the ED. Will treat the underlying problem, his sepsis, pneumonia and dehydration, since the hydration alone corrected his lethargy when he was in the ED on 11/01/2021. Qualifiers: Altered mental status type: delirium Qualified Code(s): R41.0 - Disorientation, unspecified (5) Prerenal azotemia Conclusion/Plan: Will continue with IV fluids using saline given his sepsis. Encourage p.o. fluids Follow BMP daily (6) HTN (hypertension) Conclusion/Plan: He has been hypertensive since arriving in the ED (), which is because he missed his home dose of Lisinopril due to spitting all his meds out today, per the . Will continue with his home dose of FREDIS inhibitor. Will also order Hydralazine IV prn HTN (7) Diabetes mellitus type 2 in nonobese Conclusion/Plan: Will start with clear liquids then advance his diet slowly since he is lethargic to a carb controlled diet. Will not give Amaryl since he does not have a reliable appetite for p.o. intake. Will start sliding scale insulin coverage and fingerstick checks, hypoglycemia protocol and check A1c in the a.m. (8) Advanced dementia Conclusion/Plan: It is possible that the patient may have dementia with behavioral disturbances since he is prescribed Risperdal to take. We will continue the Risperdal - Lab Results Fish Bones: 12/07/21 22:00 12/07/21 22:00 - EKG Results EKG Interpreted Independently: Yes EKG Comparison: Old EKG unavailable, Other EKG Findings: Sinus tachycardia, rate 100, low voltage in limb leads, QS waves in V1 and V2. No oold EKG available for comparison. - Other Other Results/Comments: Attestation: The patient is expected to be discharged or transferred to another facility for 96 hours: Yes.
[2021-12-08 00:43] LABS: BILIRUBIN,URINE NEGATIVE (NEGATIVE); GLUCOSE, URINE (UA) >=1000 mg/dL (NEGATIVE); KETONES,URINE (UA) 15 mg/dL (NEGATIVE); LEUKOCYTE ESTERASE, URINE NEGATIVE (NEGATIVE); NITRITE,URINE NEGATIVE (NEGATIVE); OCCULT BLOOD,URINE MODERATE (NEGATIVE); PROTEIN,URINE 100 mg/dL (NEGATIVE); UROBILINOGEN,URINE 0.2 (NORMAL) E.U./dL (NORMAL)
[2021-12-08 00:53] LABS: CLARITY,URINE CLEAR (CLEAR)
[2021-12-08 00:54] LABS: BACTERIA,URINE Rare /HPF (None Seen); RBC,URINE 0-5 /HPF (0-5); SQUAMOUS EPITHELIAL CELL,UR RARE Squamous (<= Few); WBC,URINE 0-3 /HPF (0-3)
[2021-12-08] MEDS ORDERED: AZITHROMYCIN INJ 500 MG in SODIUM CHLORIDE 0.9% 250 ML IV STA (01:01)
[2021-12-08] MEDS: SODIUM CHLORIDE FLUSH 0.9% 10 ML SYRINGE IVP SCH ×3 (01:46→17:04)
[2021-12-08] MEDS: SODIUM CHLORIDE 0.9% 1,000 ML IV SCH ×3 (01:47→19:29)
[2021-12-08] MEDS ORDERED: cefTRIAXone 2 GM in SODIUM CHLORIDE 0.9% MINIBAG 100 ML IV SCH (02:00)
[2021-12-08] MEDS ORDERED: hydrALAZINE INJ 20 MG/ML VIAL IVP ONE (02:13)
[2021-12-08 05:20] LABS: BASOPHILS % (AUTO) 0.1 %; HCT - HEMATOCRIT 38.7 % (42.0-52.0); HGB - HEMOGLOBIN 12.7 g/dL (14.0-18.0); LYMPHOCYTES # (AUTO) 0.3 10^3/uL (1.5-3.5); MEAN CORPUSCULAR HEMOGLOBIN 28.5 pg (27.0-31.0); MEAN CORPUSCULAR HGB CONC 32.8 g/dL (32.0-36.0); MEAN CORPUSCULAR VOLUME 86.8 fL (80.0-94.0); MEAN PLATELET VOLUME 9.7 fL (7.4-11.4); MONOCYTES # (AUTO) 0.1 10^3/uL (0.0-1.0); MONOCYTES % (AUTO) 1.7 %; NEUTROPHILS # (AUTO) 6.5 10^3/uL (1.5-6.6); PLT - PLATELET COUNT 256 10^3/uL (130-450); RED BLOOD COUNT 4.46 10^6/uL (4.70-6.10); RED CELL DISTRIBUTION WIDTH 12.5 % (12.0-15.0); WHITE BLOOD COUNT 6.9 x10^3/uL (4.8-10.8)
[2021-12-08 05:28] LABS: CREATININE 1.1 mg/dL (0.6-1.2); MAGNESIUM 2.4 mg/dL (1.7-2.8); PHOSPHORUS 3.1 mg/dL (2.5-4.6); POTASSIUM 4.2 mmol/L (3.5-5.0)
[2021-12-08] MEDS ORDERED: INSULIN ASPART 300 UNIT/3 ML PEN SUBQ SCH ×2 (08:00→21:00)
--- NOTE | 2021-12-08 08:31 | PROVIDER PROGRESS NOTE ---
Assessment/Plan - Problem List (1) Sepsis Assessment/Plan: 2/2 COVID-19 pneumonia and possibly community-acquired pneumonia. On 2 L of oxygen via nasal cannula with oxygen saturation between 92 and 94%. Rocephin and azithromycin initiated on 11/25/21. Lactic acid at admission was 3.9. With IV hydration is improved to 1.8. Blood and respiratory cultures pending. Patient was given dexamethasone 10 mg IV x1 in the ED. Dexamethasone 6 mg IV daily initiated. Lovenox 40 mg subcu daily for DVT prophylaxis. Tylenol as needed for fever. (2) Pneumonia due to COVID-19 virus Assessment/Plan: 2/2 COVID-19 pneumonia and possibly community-acquired pneumonia. On 2 L of oxygen via nasal cannula with oxygen saturation between 92 and 94%. Rocephin and azithromycin initiated on 11/25/21. Blood and respiratory cultures pending. Patient was given dexamethasone 10 mg IV x1 in the ED. Dexamethasone 6 mg IV daily initiated. Lovenox 40 mg subcu daily for DVT prophylaxis. Tylenol as needed for fever. (3) CAP (community acquired pneumonia) Assessment/Plan: 2/2 COVID-19 pneumonia and possibly community-acquired pneumonia. On 2 L of oxygen via nasal cannula with oxygen saturation between 92 and 94%. Rocephin and azithromycin initiated on 11/25/21. Blood and respiratory cultures pending. Patient was given dexamethasone 10 mg IV x1 in the ED. Dexamethasone 6 mg IV daily initiated. Lovenox 40 mg subcu daily for DVT prophylaxis. Tylenol as needed for fever. (4) AMS (altered mental status) Qualifiers: Altered mental status type: delirium Qualified Code(s): R41.0 - Disorientation, unspecified Assessment/Plan: Acutely may be due to infections: Covid and community-acquired pneumonia and possible hypoxia. Chronically patient has advanced dementia. Above-mentioned conditions. (5) Advanced dementia Assessment/Plan: On risperidone 0.5 mg po q pm. (6) Prerenal azotemia Assessment/Plan: BUN was 27. On normal saline at 100 mL/h. (7) Diabetes mellitus type 2 in nonobese Assessment/Plan: Hemoglobin A1c was 9.2. Amaryl held. Lantus 5 units subcu every afternoon. Accu-Cheks before every meal and at bedtime. Sliding scale insulin. (8) HTN (hypertension) Assessment/Plan: Lisinopril 10 mg p.o. daily. Hydralazine 10 mg IV every 4 hours as needed for systolic blood pressure greater than 160 - Current Meds Current Meds: Current Medications Generic Name Dose Route Start Last Admin Trade Name Freq PRN Reason Stop Dose Admin Sodium Chloride 1,000 mls @ 100 mls/hr 12/08/21 01:00 12/08/21 05:43 Normal Saline 0.9% IV 100 mls/hr .Q10H ANNY Infusion Sodium Chloride 10 ml 12/08/21 01:00 12/08/21 01:46 Sodium Chloride Flush 0.9% 10 Ml Syringe IVP 10 ml 0100,0900,1700 ANNY Administration - Lab Result Fish Bone Diagrams: 12/08/21 05:00 12/08/21 05:00 Subjective - Subjective Patient Reports: Other (Resting comfortably in bed. Does not appear to be in any distress. Is awake but not communicative.) Objective Vital Signs: Vital Signs - 24 hr 12/07/21 12/07/21 12/07/21 21:59 22:13 22:34 Temperature 36.5 C Heart Rate 106 H 111 H 111 H Heart Rate [ Brachial] Heart Rate [ Monitoring electrodes] Respiratory 22 19 27 H Rate Blood Pressure 180/77 H 172/76 H 181/78 H Blood Pressure [Left Brachial artery] Blood Pressure [Right Brachial artery] O2 Saturation 100 100 90 L 12/07/21 12/07/21 12/08/21 22:53 23:21 00:06 Temperature Heart Rate 106 H 103 H 106 H Heart Rate [ Brachial] Heart Rate [ Monitoring electrodes] Respiratory 25 H 23 21 Rate Blood Pressure 185/86 H 190/87 H 166/75 H Blood Pressure [Left Brachial artery] Blood Pressure [Right Brachial artery] O2 Saturation 97 98 97 12/08/21 12/08/21 12/08/21 00:20 00:56 02:02 Temperature 36.8 C 36.8 C 36.5 C Heart Rate 108 H 97 Heart Rate [ 111 H Brachial] Heart Rate [ Monitoring electrodes] Respiratory 19 24 20 Rate Blood Pressure 166/75 H 172/82 H Blood Pressure [Left Brachial artery] Blood Pressure 189/85 H [Right Brachial artery] O2 Saturation 97 96 95 12/08/21 12/08/21 12/08/21 02:37 02:40 02:45 Temperature Heart Rate Heart Rate [ Brachial] Heart Rate [ Monitoring electrodes] Respiratory Rate Blood Pressure 181/74 H Blood Pressure [Left Brachial artery] Blood Pressure 159/88 H 150/62 H [Right Brachial artery] O2 Saturation 12/08/21 12/08/21 12/08/21 02:52 03:00 03:15 Temperature Heart Rate Heart Rate [ Brachial] Heart Rate [ Monitoring electrodes] Respiratory Rate Blood Pressure Blood Pressure [Left Brachial artery] Blood Pressure 159/67 H 144/67 H 151/69 H [Right Brachial artery] O2 Saturation 12/08/21 12/08/21 12/08/21 03:30 05:45 07:41 Temperature 37.1 C 36.7 C Heart Rate Heart Rate [ 91 Brachial] Heart Rate [ 99 Monitoring electrodes] Respiratory 18 20 Rate Blood Pressure Blood Pressure 130/59 L [Left Brachial artery] Blood Pressure 146/67 H 159/89 H [Right Brachial artery] O2 Saturation 94 93 Oxygen O2 Source Nasal cannula Oxygen Flow Rate 2 I&O (Last 24 Hrs): Intake and Output Totals x24h 12/06/21 12/07/21 12/08/21 23:59 23:59 23:59 Intake Total 1000 779.167 Output Total 70 Balance 1000 709.167 General: Alert, No acute distress, Other (Oriented to place time or reason.) HEENT: PERRLA, EOMI Neck: Supple, No JVD Neuro: Alert, Disoriented Cardiovascular: Regular rate, Normal S1, Normal S2, No murmurs Respiratory: Chest non-tender, No respiratory distress, Other (Mild to moderate crackles on lung bases bilaterally.) Abdomen: Normal bowel sounds, Soft, No tenderness, No masses Extremities: No clubbing, No cyanosis, No edema Skin: No rashes, No breakdown - Results Results: Laboratory Results WBC 6.9 x10^3/uL (4.8-10.8) 12/08/21 05:00 RBC 4.46 10^6/uL (4.70-6.10) L 12/08/21 05:00 Hgb 12.7 g/dL (14.0-18.0) L 12/08/21 05:00 Hct 38.7 % (42.0-52.0) L 12/08/21 05:00 MCV 86.8 fL (80.0-94.0) 12/08/21 05:00 MCH 28.5 pg (27.0-31.0) 12/08/21 05:00 MCHC 32.8 g/dL (32.0-36.0) 12/08/21 05:00 RDW 12.5 % (12.0-15.0) 12/08/21 05:00 Plt Count 256 10^3/uL (130-450) 12/08/21 05:00 MPV 9.7 fL (7.4-11.4) 12/08/21 05:00 Neut # (Auto) 6.5 10^3/uL (1.5-6.6) 12/08/21 05:00 Lymph # (Auto) 0.3 10^3/uL (1.5-3.5) L 12/08/21 05:00 [place] # (Auto) 0.1 10^3/uL (0.0-1.0) 12/08/21 05:00 Eos # (Auto) 0.0 10^3/uL (0.0-0.7) 12/08/21 05:00 Baso # (Auto) 0.0 10^3/uL (0.0-0.1) 12/08/21 05:00 Absolute Nucleated RBC 0.00 x10^3/uL 12/08/21 05:00 Nucleated RBC % 0.0 /100WBC 12/08/21 05:00 D-Dimer 867.2 ng/mL (200.0-255.0) H 12/08/21 05:00 Sodium 150 mmol/L (135-145) H 12/08/21 05:00 Potassium 4.2 mmol/L (3.5-5.0) 12/08/21 05:00 Chloride 112 mmol/L (101-111) H 12/08/21 05:00 Carbon Dioxide 22 mmol/L (21-32) 12/08/21 05:00 Anion Gap 16.0 (6-13) H 12/08/21 05:00 BUN 27 mg/dL (6-20) H 12/08/21 05:00 Creatinine 1.1 mg/dL (0.6-1.2) 12/08/21 05:00 Estimated GFR (MDRD) 64 (>89) L 12/08/21 05:00 Glucose 329 mg/dL (70-100) H 12/08/21 05:00 POC Whole Bld Glucose 295 mg/dL (70 - 100) H 12/08/21 07:29 Lactic Acid 1.8 mmol/L (0.5-2.2) 12/08/21 01:55 Calcium 9.0 mg/dL (8.5-10.3) 12/08/21 05:00 Phosphorus 3.1 mg/dL (2.5-4.6) 12/08/21 05:00 Magnesium 2.4 mg/dL (1.7-2.8) 12/08/21 05:00 Total Bilirubin 1.3 mg/dL (0.2-1.0) H 12/07/21 22:00 AST 43 IU/L (10-42) H 12/07/21 22:00 ALT 38 IU/L (10-60) 12/07/21 22:00 Alkaline Phosphatase 99 IU/L (42-121) 12/07/21 22:00 Total Protein 8.1 g/dL (6.7-8.2) 12/07/21 22:00 Albumin 3.3 g/dL (3.2-5.5) 12/07/21 22:00 Globulin 4.8 g/dL (2.1-4.2) H 12/07/21 22:00 Albumin/Globulin Ratio 0.7 (1.0-2.2) L 12/07/21 22:00 Lipase 26 U/L (22-51) 12/07/21 22:00 Urine Color YELLOW 12/08/21 00:30 Urine Clarity CLEAR (CLEAR) 12/08/21 00:30 Urine pH 5.0 PH (5.0-7.5) 12/08/21 00:30 Ur Specific [place] 1.025 (1.002-1.030) 12/08/21 00:30 Urine Protein 100 mg/dL (NEGATIVE) H 12/08/21 00:30 Urine Glucose (UA) >=1000 mg/dL (NEGATIVE) H 12/08/21 00:30 Urine Ketones 15 mg/dL (NEGATIVE) H 12/08/21 00:30 Urine Occult Blood MODERATE (NEGATIVE) H 12/08/21 00:30 Urine Nitrite NEGATIVE (NEGATIVE) 12/08/21 00:30 Urine Bilirubin NEGATIVE (NEGATIVE) 12/08/21 00:30 Urine Urobilinogen 0.2 (NORMAL) E.U./dL (NORMAL) 12/08/21 00:30 Ur Leukocyte Esterase NEGATIVE (NEGATIVE) 12/08/21 00:30 Urine RBC 0-5 /HPF (0-5) 12/08/21 00:30 Urine WBC 0-3 /HPF (0-3) 12/08/21 00:30 Ur Squamous Epith Cells RARE Squamous (<= Few) 12/08/21 00:30 Urine Bacteria Rare /HPF (None Seen) 12/08/21 00:30 Ur Microscopic Review INDICATED 12/08/21 00: Urine Culture Comments NOT INDICATED 12/08/21 00:30 - Procedures Procedures: Procedures REPLACEMENT OF LEFT LENS WITH SYNTH SUB, PERC APPROACH (03/30/19) REPLACEMENT OF RIGHT LENS WITH SYNTH SUB, PERC APPROACH (01/05/19) Sepsis Event Note (H) - Evaluation Current Stage of Sepsis: Sepsis - Sepsis Criteria Sepsis Criteria: Recorded Heart Rate greater than 90 bpm, Respiratory: Increasing oxygen requirements, 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
[2021-12-08] MEDS ORDERED: guaiFENesin 600 MG TABLET PO SCH (09:00)
[2021-12-08] MEDS ORDERED: NON FORMULARY MED (Lisinopril [Zestril] 10 MG Tablet) PO SCH (09:00)
[2021-12-08] MEDS ORDERED: lisinopriL 5 MG TABLET PO SCH (09:00)
[2021-12-08 09:29] LABS: ESTIMATED AVERAGE GLUCOSE 217 mg/dL (70-100); HEMOGLOBIN A1c% 9.2 % (4.27-6.07)
[2021-12-08] MEDS: ENOXAPARIN 40 MG/0.4 ML SYRINGE SUBQ SCH (11:09)
--- NOTE | 2021-12-08 11:40 | PHARMACY PROGRESS NOTE ---
- Best Possible Medication History Admit Date and Time: 12/08/21 0031 Processed by: Nursing Medication History completed: Yes As the person ultimately responsible for medication therapy, providers are able to order a medication from an existing home medication list in [facility] via the "Reconcile Routine" prior to Confirmation of that medication by it support technician. Such practice is discouraged except when the physician, in their clinical judgment, deems that a medical need exists for a medication without regard to previous use.
[2021-12-08] MEDS: SACCHAROMYCES BOULARDII 250 MG CAPSULE PO SCH ×2 (12:16→17:04)
[2021-12-08] MEDS: INSULIN ASPART 300 UNIT/3 ML PEN SUBQ SCH ×2 (12:19→17:08)
[2021-12-08] MEDS ORDERED: INSULIN ASPART 300 UNIT/3 ML PEN SUBQ ONE (18:48)
[2021-12-08] MEDS ORDERED: INSULIN GLARGINE 300 UNIT/3 ML PEN SUBQ SCH (21:00)
[2021-12-08] MEDS ORDERED: RISPERIDONE 0.5 MG PO SCH (21:00)
[2021-12-08] MEDS: cefTRIAXone 2 GM in SODIUM CHLORIDE 0.9% MINIBAG 100 ML IV SCH (21:09)
[2021-12-08] MEDS: INSULIN GLARGINE 300 UNIT/3 ML PEN SUBQ SCH (21:21)
[2021-12-08] MEDS: risperiDONE 1 MG TABLET PO SCH (21:21)
[2021-12-08] MEDS: AZITHROMYCIN INJ 500 MG in SODIUM CHLORIDE 0.9% 250 ML IV SCH (21:32)
[2021-12-09] MEDS ORDERED: AZITHROMYCIN INJ 500 MG in SODIUM CHLORIDE 0.9% 250 ML IV SCH (00:01)
[2021-12-09] MEDS: hydrALAZINE INJ 20 MG/ML VIAL IVP PRN (04:29)
[2021-12-09] MEDS: SODIUM CHLORIDE FLUSH 0.9% 10 ML SYRINGE IVP SCH ×3 (04:29→16:36)
[2021-12-09 05:40] LABS: BASOPHILS % (AUTO) 0.1 %; HCT - HEMATOCRIT 34.4 % (42.0-52.0); HGB - HEMOGLOBIN 11.3 g/dL (14.0-18.0); LYMPHOCYTES # (AUTO) 0.3 10^3/uL (1.5-3.5); LYMPHOCYTES % (AUTO) 3.2 %; MEAN CORPUSCULAR HEMOGLOBIN 28.4 pg (27.0-31.0); MEAN CORPUSCULAR HGB CONC 32.8 g/dL (32.0-36.0); MEAN CORPUSCULAR VOLUME 86.4 fL (80.0-94.0); MEAN PLATELET VOLUME 9.7 fL (7.4-11.4); MONOCYTES # (AUTO) 0.4 10^3/uL (0.0-1.0); MONOCYTES % (AUTO) 4.6 %; NEUTROPHILS # (AUTO) 8.7 10^3/uL (1.5-6.6); NEUTROPHILS % (AUTO) 90.8 %; PLT - PLATELET COUNT 279 10^3/uL (130-450); RED BLOOD COUNT 3.98 10^6/uL (4.70-6.10); RED CELL DISTRIBUTION WIDTH 12.6 % (12.0-15.0); WHITE BLOOD COUNT 9.6 x10^3/uL (4.8-10.8)
[2021-12-09 05:54] LABS: CALCIUM 8.2 mg/dL (8.5-10.3); CREATININE 1.1 mg/dL (0.6-1.2); POTASSIUM 3.6 mmol/L (3.5-5.0)
[2021-12-09] MEDS: SODIUM CHLORIDE 0.9% 1,000 ML IV SCH (06:32)
[2021-12-09] MEDS: SACCHAROMYCES BOULARDII 250 MG CAPSULE PO SCH ×2 (07:45→16:28)
[2021-12-09] MEDS: INSULIN ASPART 300 UNIT/3 ML PEN SUBQ SCH ×7 (08:22→20:40)
[2021-12-09] MEDS ORDERED: lisinopriL 20 MG TABLET PO SCH (09:00)
[2021-12-09] MEDS: D5.45NS W/20 MEQ KCL 1,000 ML IV SCH ×2 (09:18→20:33)
[2021-12-09] MEDS: INSULIN GLARGINE 300 UNIT/3 ML PEN SUBQ SCH ×2 (09:18→20:39)
[2021-12-09] MEDS: DEXAMETHASONE 4 MG/ML VIAL IVP SCH (09:20)
[2021-12-09] MEDS: ENOXAPARIN 40 MG/0.4 ML SYRINGE SUBQ SCH (09:20)
[2021-12-09] MEDS: polyethylene glycoL 3350 17 GM PACKET PO SCH (09:21)
[2021-12-09] MEDS ORDERED: REMDESIVIR 100MG VIAL 200 MG in SODIUM CHLORIDE 0.9% 250 ML IV ONE (10:00)
--- NOTE | 2021-12-09 10:45 | PROVIDER PROGRESS NOTE ---
Assessment/Plan - Current Meds Current Meds: Current Medications Generic Name Dose Route Start Last Admin Trade Name Freq PRN Reason Stop Dose Admin Dexamethasone 6 mg 12/09/21 09:00 12/09/21 09:20 Dexamethasone 4 Mg/Ml Vial IVP 6 mg DAILY ANNY Administration Enoxaparin Sodium 40 mg 12/08/21 09:00 12/09/21 09:20 Enoxaparin 40 Mg/0.4 Ml Syringe SUBQ 40 mg DAILY ANNY Administration Hydralazine HCl 10 mg 12/08/21 13:16 12/09/21 04:29 Hydralazine Inj 20 Mg/Ml Vial IVP 10 mg Q4H PRN Administration PER PHYSICIAN ORDER Ceftriaxone Sodium 2 gm/ 100 mls @ 200 mls/hr 12/08/21 22:00 12/08/21 21:39 Sodium Chloride IV Infused 2200 ANNY Infusion Azithromycin 500 mg/ Sodium 250 mls @ 250 mls/hr 12/08/21 21:00 12/08/21 22 :32 Chloride IV 12/09/21 21:59 Infused QPM ANNY Infusion Potassium Chloride/Dextrose/Sod Cl 1,000 mls @ 100 mls/hr 12/09/21 09:00 12/09/21 10:11 D5.45ns W/20 Meq Kcl IV 12/10/21 04:59 0 mls/hr .Q10H ANNY Infusion Remdesivir 200 mg/ Sodium 250 mls @ 250 mls/hr 12/09/21 10:00 12/09/21 10:11 Chloride IV 12/09/21 10:59 250 mls/hr ONCE ONE Administration Insulin Aspart 3 - 11 unit 12/09/21 08:00 12/09/21 08:22 Insulin Aspart 300 Unit/3 Ml Pen SUBQ 11 unit 0800,1200,1700,2100 [facility] Administration Protocol Insulin Aspart 5 unit 12/09/21 08:33 12/09/21 09:19 Insulin Aspart 300 Unit/3 Ml Pen SUBQ 5 unit TIDWM [facility] Administration Protocol Insulin Glargine 10 unit 12/08/21 21:00 12/08/21 21:21 Insulin Glargine 300 Unit/3 Ml Pen SUBQ 10 unit QPM ANNY Administration Insulin Glargine 5 unit 12/09/21 09:00 12/09/21 09:18 Insulin Glargine 300 Unit/3 Ml Pen SUBQ 5 unit QDBREAKFAST ANNY Administration Lisinopril 20 mg 12/09/21 09:00 12/09/21 09:21 Lisinopril 20 Mg Tablet PO 20 mg DAILY ANNY Administration Polyethylene Glycol 17 gm 12/09/21 09:00 12/09/21 09:21 Polyethylene Glycol 3350 17 Gm Packet PO 17 gm DAILY ANNY Administration Risperidone 0.5 mg 12/08/21 21:00 12/08/21 21:21 Risperidone 1 Mg Tablet PO 0.5 mg QPM ANNY Administration Saccharomyces Boulardii 500 mg 12/08/21 08:00 12/09/21 07:45 Saccharomyces Boulardii 250 Mg Capsule PO 500 mg BIDWM ANNY Administration Sodium Chloride 10 ml 12/08/21 01:00 12/09/21 08:23 Sodium Chloride Flush 0.9% 10 Ml Syringe IVP 10 ml 0100,0900,1700 ANNY Administration - Lab Result Fish Bone Diagrams: 12/09/21 05:24 12/09/21 05:24 - Additional Planning My Orders: My Active Orders 12/09/21 Pharmacy Consult [CONS] Routine 12/09/21 08:33 Insulin Aspart [NovoLOG] 5 unit SUBQ TIDWM 12/09/21 09:00 D5.45ns W/20 Meq KCl 1,000 ml IV 100 mls/hr Insulin Glargine [Lantus Solostar] 5 unit SUBQ QDBREAKFAST lisinopriL [Zestril] 20 mg PO DAILY 12/09/21 10:00 Remdesivir 100Mg Vial [Veklury] 200 mg Sodium Chloride 0.9% [Normal Saline 0.9%] 250 ml IV ONCE 12/09/21 16:00 Multivitamin W/Minerals [Theragran M] 1 tab PO DAILYWM 12/10/21 09:00 Remdesivir 100Mg Vial [Veklury] 100 mg Sodium Chloride 0.9% 100Ml [Normal Saline 0.9% 100Ml] 100 ml IV DAILY Objective Vital Signs: Vital Signs - 24 hr 12/08/21 12/08/21 12/08/21 11:15 17:00 21:13 Temperature 36.8 C 37.7 C 37.1 C Heart Rate [ 94 104 H Brachial] Heart Rate [ 91 Monitoring electrodes] Respiratory 18 23 22 Rate Blood Pressure Blood Pressure 95/74 [Left Brachial artery] Blood Pressure 174/74 H 149/88 H [Right Brachial artery] O2 Saturation 92 90 L 96 12/08/21 12/09/21 12/09/21 23:50 04:25 04:29 Temperature 37.4 C 36.6 C Heart Rate [ Brachial] Heart Rate [ 91 89 Monitoring electrodes] Respiratory 18 18 Rate Blood Pressure 195/81 H Blood Pressure [Left Brachial artery] Blood Pressure 166/62 H 195/81 H [Right Brachial artery] O2 Saturation 95 95 12/09/21 12/09/21 12/09/21 04:38 04:45 04:59 Temperature Heart Rate [ Brachial] Heart Rate [ Monitoring electrodes] Respiratory Rate Blood Pressure 152/75 H Blood Pressure [Left Brachial artery] Blood Pressure 168/84 H 158/84 H [Right Brachial artery] O2 Saturation 12/09/21 12/09/21 12/09/21 05:00 05:23 09:00 Temperature 36.9 C Heart Rate [ 89 Brachial] Heart Rate [ Monitoring electrodes] Respiratory 24 Rate Blood Pressure Blood Pressure [Left Brachial artery] Blood Pressure 152/75 H 162/55 H 98/78 [Right Brachial artery] O2 Saturation 97 Oxygen O2 Source Room air Oxygen Flow Rate 2 I&O (Last 24 Hrs): Intake and Output Totals x24h 12/07/21 12/08/21 12/09/21 23:59 23:59 23:59 Intake Total 1000 3612.500 966.666 Output Total 70 Balance 1000 3542.500 966.666 - Results Results: Laboratory Results WBC 9.6 x10^3/uL (4.8-10.8) 12/09/21 05:24 RBC 3.98 10^6/uL (4.70-6.10) L 12/09/21 05:24 Hgb 11.3 g/dL (14.0-18.0) L 12/09/21 05:24 Hct 34.4 % (42.0-52.0) L 12/09/21 05:24 MCV 86.4 fL (80.0-94.0) 12/09/21 05:24 MCH 28.4 pg (27.0-31.0) 12/09/21 05:24 MCHC 32.8 g/dL (32.0-36.0) 12/09/21 05:24 RDW 12.6 % (12.0-15.0) 12/09/21 05:24 Plt Count 279 10^3/uL (130-450) 12/09/21 05:24 MPV 9.7 fL (7.4-11.4) 12/09/21 05:24 Neut # (Auto) 8.7 10^3/uL (1.5-6.6) H 12/09/21 05:24 Lymph # (Auto) 0.3 10^3/uL (1.5-3.5) L 12/09/21 05:24 [place] # (Auto) 0.4 10^3/uL (0.0-1.0) 12/09/21 05:24 Eos # (Auto) 0.0 10^3/uL (0.0-0.7) 12/09/21 05:24 Baso # (Auto) 0.0 10^3/uL (0.0-0.1) 12/09/21 05:24 Absolute Nucleated RBC 0.00 x10^3/uL 12/09/21 05:24 Nucleated RBC % 0.0 /100WBC 12/09/21 05:24 D-Dimer 867.2 ng/mL (200.0-255.0) H 12/08/21 05:00 Sodium 152 mmol/L (135-145) H 12/09/21 05:24 Potassium 3.6 mmol/L (3.5-5.0) 12/09/21 05:24 Chloride 120 mmol/L (101-111) H* 12/09/21 05:24 Carbon Dioxide 20 mmol/L (21-32) L 12/09/21 05:24 Anion Gap 12.0 (6-13) 12/09/21 05:24 BUN 40 mg/dL (6-20) H 12/09/21 05:24 Creatinine 1.1 mg/dL (0.6-1.2) 12/09/21 05:24 Estimated GFR (MDRD) 64 (>89) L 12/09/21 05:24 Glucose 301 mg/dL (70-100) H 12/09/21 05:24 POC Whole Bld Glucose 335 mg/dL (70 - 100) H 12/09/21 08:19 Estimat Average Glucose 217 mg/dL (70-100) H 12/08/21 00:00 Hemoglobin A1c % 9.2 % (4.27-6.07) H 12/08/21 00:00 Lactic Acid 1.8 mmol/L (0.5-2.2) 12/08/21 01:55 Calcium 8.2 mg/dL (8.5-10.3) L 12/09/21 05:24 Phosphorus 3.1 mg/dL (2.5-4.6) 12/08/21 05:00 Magnesium 2.4 mg/dL (1.7-2.8) 12/08/21 05:00 Total Bilirubin 1.3 mg/dL (0.2-1.0) H 12/07/21 22:00 AST 43 IU/L (10-42) H 12/07/21 22:00 ALT 38 IU/L (10-60) 12/07/21 22:00 Alkaline Phosphatase 99 IU/L (42-121) 12/07/21 22:00 Total Protein 8.1 g/dL (6.7-8.2) 12/07/21 22:00 Albumin 3.3 g/dL (3.2-5.5) 12/07/21 22:00 Globulin 4.8 g/dL (2.1-4.2) H 12/07/21 22:00 Albumin/Globulin Ratio 0.7 (1.0-2.2) L 12/07/21 22:00 Lipase 26 U/L (22-51) 12/07/21 22:00 25-OH Vitamin D Total 64 ng/mL (30-100) 12/07/21 22:00 Urine Color YELLOW 12/08/21 00:30 Urine Clarity CLEAR (CLEAR) 12/08/21 00:30 Urine pH 5.0 PH (5.0-7.5) 12/08/21 00:30 Ur Specific [place] 1.025 (1.002-1.030) 12/08/21 00:30 Urine Protein 100 mg/dL (NEGATIVE) H 12/08/21 00:30 Urine Glucose (UA) >=1000 mg/dL (NEGATIVE) H 12/08/21 00:30 Urine Ketones 15 mg/dL (NEGATIVE) H 12/08/21 00:30 Urine Occult Blood MODERATE (NEGATIVE) H 12/08/21 00:30 Urine Nitrite NEGATIVE (NEGATIVE) 12/08/21 00:30 Urine Bilirubin NEGATIVE (NEGATIVE) 12/08/21 00:30 Urine Urobilinogen 0.2 (NORMAL) E.U./dL (NORMAL) 12/08/21 00:30 Ur Leukocyte Esterase NEGATIVE (NEGATIVE) 12/08/21 00:30 Urine RBC 0-5 /HPF (0-5) 12/08/21 00:30 Urine WBC 0-3 /HPF (0-3) 12/08/21 00:30 Ur Squamous Epith Cells RARE Squamous (<= Few) 12/08/21 00:30 Urine Bacteria Rare /HPF (None Seen) 12/08/21 00:30 Ur Microscopic Review INDICATED 12/08/21 00:30 Urine Culture Comments NOT INDICATED 12/08/21 00:30 - Procedures Procedures: Procedures REPLACEMENT OF LEFT LENS WITH SYNTH SUB, PERC APPROACH (03/30/19) REPLACEMENT OF RIGHT LENS WITH SYNTH SUB, PERC APPROACH (01/05/19) Sepsis Event Note (H) - Evaluation Current Stage of Sepsis: Sepsis - Sepsis Criteria Sepsis Criteria: Recorded Heart Rate greater than 90 bpm, Respiratory: Increasing oxygen requirements, CLUB DIRECTOR: altered consciousness (unrelated to primary neuro pathology), Metabolic: lactate > 2 mmol/L ABX Reporting Has patient been on IV antibiotics over the past 48 hours?: Yes
--- NOTE | 2021-12-09 10:48 | PROVIDER PROGRESS NOTE ---
Assessment/Plan - Problem List (1) Sepsis Assessment/Plan: 12/09, improved. his lactic acid is down to 1.8, Hemodynamic is stable. Patient ate 75% of his breakfast. We will continue treat for his COVID-19 pneumonia And CAP, Continue hydration for patient. Patient's blood culture showed negative for bacteremia (2) Pneumonia due to COVID-19 virus Assessment/Plan: 12/09 Patient COVID-19 test turned to be positive. pt need O2 support at morning. we will continue Covid 19 treatment for pt, continue decatron, Remdesivir, Lovenox. Tylenol as needed for fever. (3) CAP (community acquired pneumonia) Assessment/Plan: 12/09 pt had COVID-19 pneumonia and possibly community-acquired pneumonia. continue antibiotic and probiotics. Tylenol as needed for fever. (4)hypernatremia pt is Na is 152, it is likely hypovolemia and hypernatremia, add D5 1/2 NS now, discussed with nurse, keep pt hydration with free water. continue lab monitor (5) Prerenal azotemia pt had elevated BUN, sodium and chloride. keep pt hydration and add D5 1/2 NS, lab monitor (6) AMS (altered mental status) acut on chronic. pt has hx of advanced dementia. Acutely may be due to infections: Covid and community-acquired pneumonia and possible hypoxia and dehydration. treat underline infection as above, continue hydration for pt, and continue neuro check (7) Advanced dementia Assessment/Plan: On risperidone 0.5 mg po q pm. 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 Amaryl held. increased Lantus, and slide scale insulin. continue Accu-Cheks before every meal and at bedtime, continue hypoglycemia protocol (9) HTN (hypertension) Assessment/Plan: Lisinopril 10 mg p.o. daily. Hydralazine 10 mg IV every 4 hours as needed for systolic blood pressure greater than 160 - Current Meds Current Meds: Current Medications Generic Name Dose Route Start Last Admin Trade Name Freq PRN Reason Stop Dose Admin Dexamethasone 6 mg 12/09/21 09:00 12/09/21 09:20 Dexamethasone 4 Mg/Ml Vial IVP 6 mg DAILY ANNY Administration Enoxaparin Sodium 40 mg 12/08/21 09:00 12/09/21 09:20 Enoxaparin 40 Mg/0.4 Ml Syringe SUBQ 40 mg DAILY ANNY Administration Hydralazine HCl 10 mg 12/08/21 13:16 12/09/21 04:29 Hydralazine Inj 20 Mg/Ml Vial IVP 10 mg Q4H PRN Administration PER PHYSICIAN ORDER Ceftriaxone Sodium 2 gm/ 100 mls @ 200 mls/hr 12/08/21 22:00 12/08/21 21:39 Sodium Chloride IV Infused 2200 ANNY Infusion Azithromycin 500 mg/ Sodium 250 mls @ 250 mls/hr 12/08/21 21:00 12/08/21 22:32 Chloride IV 12/09/21 21:59 Infused QPM ANNY Infusion Potassium Chloride/Dextrose/Sod Cl 1,000 mls @ 100 mls/hr 12/09/21 09:00 12/09/21 10:11 D5.45ns W/20 Meq Kcl IV 12/10/21 04:59 0 mls/hr .Q10H ANNY Infusion Remdesivir 200 mg/ Sodium 250 mls @ 250 mls/hr 12/09/21 10:00 12/09/21 10:11 Chloride IV 12/09/21 10:59 250 mls/hr ONCE ONE Administration Insulin Aspart 3 - 11 unit 12/09/21 08:00 12/09/21 08:22 Insulin Aspart 300 Unit/3 Ml Pen SUBQ 11 unit 0800,1200,1700,2100 ANNY Administration Protocol Insulin Aspart 5 unit 12/09/21 08:33 12/09/21 09:19 Insulin Aspart 300 Unit/3 Ml Pen SUBQ 5 unit TIDWM ANNY Administration Protocol Insulin Glargine 10 unit 12/08/21 21:00 12/08/21 21:21 Insulin Glargine 300 Unit/3 Ml Pen SUBQ 10 unit QPM ANNY Administration Insulin Glargine 5 unit 12/09/21 09:00 12/09/21 09:18 Insulin Glargine 300 Unit/3 Ml Pen SUBQ 5 unit QDBREAKFAST ANNY Administration Lisinopril 20 mg 12/09/21 09:00 12/09/21 09:21 Lisinopril 20 Mg Tablet PO 20 mg DAILY ANNY Administration Polyethylene Glycol 17 gm 12/09/21 09:00 12/09/21 09:21 Polyethylene Glycol 3350 17 Gm Packet PO 17 gm DAILY ANNY Administration Risperidone 0.5 mg 12/08/21 21:00 12/08/21 21:21 Risperidone 1 Mg Tablet PO 0.5 mg QPM ANNY Administration Saccharomyces Boulardii 500 mg 12/08/21 08:00 12/09/21 07:45 Saccharomyces Boulardii 250 Mg Capsule PO 500 mg BIDWM ANNY Administration Sodium Chloride 10 ml 12/08/21 01:00 12/09/21 08:23 Sodium Chloride Flush 0.9% 10 Ml Syringe IVP 10 ml 0100,0900,1700 ANNY Administration - Lab Result Fish Bone Diagrams: 12/09/21 05:24 12/09/21 05:24 - Additional Planning My Orders: My Active Orders 12/09/21 Pharmacy Consult [CONS] Routine 12/09/21 08:33 Insulin Aspart [NovoLOG] 5 unit SUBQ TIDWM 12/09/21 09:00 D5.45ns W/20 Meq KCl 1,000 ml IV 100 mls/hr Insulin Glargine [Lantus Solostar] 5 unit SUBQ QDBREAKFAST lisinopriL [Zestril] 20 mg PO DAILY 12/09/21 10:00 Remdesivir 100Mg Vial [Veklury] 200 mg Sodium Chloride 0.9% [Normal Saline 0 .9%] 250 ml IV ONCE 12/09/21 16:00 Multivitamin W/Minerals [Theragran M] 1 tab PO DAILYWM 12/10/21 09:00 Remdesivir 100Mg Vial [Veklury] 100 mg Sodium Chloride 0.9% 100Ml [Normal Saline 0.9% 100Ml] 100 ml IV DAILY Subjective - Subjective Patient Reports: Resting Comfortably Objective Vital Signs: Vital Signs - 24 hr 12/08/21 12/08/21 12/08/21 11:15 17:00 21:13 Temperature 36.8 C 37.7 C 37.1 C Heart Rate [ 94 104 H Brachial] Heart Rate [ 91 Monitoring electrodes] Respiratory 18 23 22 Rate Blood Pressure Blood Pressure 95/74 [Left Brachial artery] Blood Pressure 174/74 H 149/88 H [Right Brachial artery] O2 Saturation 92 90 L 96 12/08/21 12/09/21 12/09/21 23:50 04:25 04:29 Temperature 37.4 C 36.6 C Heart Rate [ Brachial] Heart Rate [ 91 89 Monitoring electrodes] Respiratory 18 18 Rate Blood Pressure 195/81 H Blood Pressure [Left Brachial artery] Blood Pressure 166/62 H 195/81 H [Right Brachial artery] O2 Saturation 95 95 12/09/21 12/09/21 12/09/21 04:38 04:45 04:59 Temperature Heart Rate [ Brachial] Heart Rate [ Monitoring electrodes] Respiratory Rate Blood Pressure 152/75 H Blood Pressure [Left Brachial artery] Blood Pressure 168/84 H 158/84 H [Right Brachial artery] O2 Saturation 12/09/21 12/09/21 12/09/21 05:00 05:23 09:00 Temperature 36.9 C Heart Rate [ 89 Brachial] Heart Rate [ Monitoring electrodes] Respiratory 24 Rate Blood Pressure Blood Pressure [Left Brachial artery] Blood Pressure 152/75 H 162/55 H 98/78 [Right Brachial artery] O2 Saturation 97 Oxygen O2 Source Room air Oxygen Flow Rate 2 I&O (Last 24 Hrs): Intake and Output Totals x24h 12/07/21 12/08/21 12/09/21 23:59 23:59 23:59 Intake Total 1000 3612.500 966.666 Output Total 70 Balance 1000 3542.500 966.666 General: Alert, No acute distress HEENT: Atraumatic Neck: Supple Lymphatic: no adenopathy Neuro: Alert, Non Focal Cardiovascular: Regular rate, Normal S1, Normal S2 Respiratory: Chest non-tender, No respiratory distress Abdomen: Normal bowel sounds, Soft Extremities: Normal pulses - Results Results: Laboratory Results WBC 9.6 x10^3/uL (4.8-10.8) 12/09/21 05:24 RBC 3.98 10^6/uL (4.70-6.10) L 12/09/21 05:24 Hgb 11.3 g/dL (14.0-18.0) L 12/09/21 05:24 Hct 34.4 % (42.0-52.0) L 12/09/21 05:24 MCV 86.4 fL (80.0-94.0) 12/09/21 05:24 MCH 28.4 pg (27.0-31.0) 12/09/21 05:24 MCHC 32.8 g/dL (32.0-36.0) 12/09/21 05:24 RDW 12.6 % (12.0-15.0) 12/09/21 05:24 Plt Count 279 10^3/uL (130-450) 12/09/21 05:24 MPV 9.7 fL (7.4-11.4) 12/09/21 05:24 Neut # (Auto) 8.7 10^3/uL (1.5-6.6) H 12/09/21 05:24 Lymph # (Auto) 0.3 10^3/uL (1.5-3.5) L 12/09/21 05:24 [place] # (Auto) 0.4 10^3/uL (0.0-1.0) 12/09/21 05:24 Eos # (Auto) 0.0 10^3/uL (0.0-0.7) 12/09/21 05:24 Baso # (Auto) 0.0 10^3/uL (0.0-0.1) 12/09/21 05:24 Absolute Nucleated RBC 0.00 x10^3/uL 12/09/21 05:24 Nucleated RBC % 0.0 /100WBC 12/09/21 05:24 D-Dimer 867.2 ng/mL (200.0-255.0) H 12/08/21 05:00 Sodium 152 mmol/L (135-145) H 12/09/21 05:24 Potassium 3.6 mmol/L (3.5-5.0) 12/09/21 05:24 Chloride 120 mmol/L (101-111) H* 12/09/21 05:24 Carbon Dioxide 20 mmol/L (21-32) L 12/09/21 05:24 Anion Gap 12.0 (6-13) 12/09/21 05:24 BUN 40 mg/dL (6-20) H 12/09/21 05:24 Creatinine 1.1 mg/dL (0.6-1.2) 12/09/21 05:24 Estimated GFR (MDRD) 64 (>89) L 12/09/21 05:24 Glucose 301 mg/dL (70-100) H 12/09/21 05:24 POC Whole Bld Glucose 335 mg/dL (70 - 100) H 12/09/21 08:19 Estimat Average Glucose 217 mg/dL (70-100) H 12/08/21 00:00 Hemoglobin A1c % 9.2 % (4.27-6.07) H 12/08/21 00:00 Lactic Acid 1.8 mmol/L (0.5-2.2) 12/08/21 01:55 Calcium 8.2 mg/dL (8.5-10.3) L 12/09/21 05:24 Phosphorus 3.1 mg/dL (2.5-4.6) 12/08/21 05:00 Magnesium 2.4 mg/dL (1.7-2.8) 12/08/21 05:00 Total Bilirubin 1.3 mg/dL (0.2-1.0) H 12/07/21 22:00 AST 43 IU/L (10-42) H 12/07/21 22:00 ALT 38 IU/L (10-60) 12/07/21 22:00 Alkaline Phosphatase 99 IU/L (42-121) 12/07/21 22:00 Total Protein 8.1 g/dL (6.7-8.2) 12/07/21 22:00 Albumin 3.3 g/dL (3.2-5.5) 12/07/21 22:00 Globulin 4.8 g/dL (2.1-4.2) H 12/07/21 22:00 Albumin/Globulin Ratio 0.7 (1.0-2.2) L 12/07/21 22:00 Lipase 26 U/L (22-51) 12/07/21 22:00 25-OH Vitamin D Total 64 ng/mL (30-100) 12/07/21 22:00 Urine Color YELLOW 12/08/21 00:30 Urine Clarity CLEAR (CLEAR) 12/08/21 00:30 Urine pH 5.0 PH (5.0-7.5) 12/08/21 00:30 Ur Specific [place] 1.025 (1.002-1.030) 12/08/21 00:30 Urine Protein 100 mg/dL (NEGATIVE) H 12/08/21 00:30 Urine Glucose (UA) >=1000 mg/dL (NEGATIVE) H 12/08/21 00:30 Urine Ketones 15 mg/dL (NEGATIVE) H 12/08/21 00:30 Urine Occult Blood MODERATE (NEGATIVE) H 12/08/21 00:30 Urine Nitrite NEGATIVE (NEGATIVE) 12/08/21 00:30 Urine Bilirubin NEGATIVE (NEGATIVE) 12/08/21 00:30 Urine Urobilinogen 0.2 (NORMAL) E.U./dL (NORMAL) 12/08/21 00:30 Ur Leukocyte Esterase NEGATIVE (NEGATIVE) 12/08/21 00:30 Urine RBC 0-5 /HPF (0-5) 12/08/21 00:30 Urine WBC 0-3 /HPF (0-3) 12/08/21 00:30 Ur Squamous Epith Cells RARE Squamous (<= Few) 12/08/21 00:30 Urine Bacteria Rare /HPF (None Seen) 12/08/21 00:30 Ur Microscopic Review INDICATED 12/08/21 00:30 Urine Culture Comments NOT INDICATED 12/08/21 00:30 - Procedures Procedures: Procedures REPLACEMENT OF LEFT LENS WITH SYNTH SUB, PERC APPROACH (03/30/19) REPLACEMENT OF RIGHT LENS WITH SYNTH SUB, PERC APPROACH (01/05/19) Sepsis Event Note (H) - Evaluation Current Stage of Sepsis: Sepsis - Sepsis Criteria Sepsis Criteria: Recorded Heart Rate greater than 90 bpm, Respiratory: In creasing oxygen requirements, DIRECTOR ZONE: altered consciousness (unrelated to primary neuro pathology), Metabolic: lactate > 2 mmol/L ABX Reporting Has patient been on IV antibiotics over the past 48 hours?: Yes Current Medications - Current Medications Current Medications: Active Medications Acetaminophen (Acetaminophen 325 Mg Tablet) 650 mg PO Q4HR PRN PRN Reason: Pain or Fever > 38C (100.4F) Dexamethasone (Dexamethasone 4 Mg/Ml Vial) 6 mg IVP DAILY [facility] Last Admin: 12/09/21 09:20 Dose: 6 mg Enoxaparin Sodium (Enoxaparin 40 Mg/0.4 Ml Syringe) 40 mg SUBQ DAILY [facility] Last Admin: 12/09/21 09:20 Dose: 40 mg Guaifenesin (Guaifenesin 100 Mg/5 Ml Udc) 100 mg PO Q6HR PRN PRN Reason: Cough Hydralazine HCl (Hydralazine Inj 20 Mg/Ml Vial) 10 mg IVP Q4H PRN PRN Reason: PER PHYSICIAN ORDER Last Admin: 12/09/21 04:29 Dose: 10 mg Ceftriaxone Sodium 2 gm/ (Sodium Chloride) 100 mls @ 200 mls/hr IV 2200 [facility] Last Infusion: 12/08/21 21:39 Dose: Infused Azithromycin 500 mg/ Sodium (Chloride) 250 mls @ 250 mls/hr IV QPM [facility] Stop: 12/09/21 21:59 Last Infusion: 12/08/21 22:32 Dose: Infused Potassium Chloride/Dextrose/Sod Cl (D5.45ns W/20 Meq Kcl) 1,000 mls @ 100 mls/hr IV .Q10H [facility] Stop: 12/10/21 04:59 Last Infusion: 12/09/21 10:11 Dose: 0 mls/hr Remdesivir 100 mg/ Sodium (Chloride) 100 mls @ 200 mls/hr IV DAILY [facility] Stop: 12/13/21 09:29 Insulin Aspart (Insulin Aspart 300 Unit/3 Ml Pen) 3 - 11 unit SUBQ 0800,1200,1700,2100 [facility]; Protocol Last Admin: 12/09/21 08:22 Dose: 11 unit Insulin Aspart (Insulin Aspart 300 Unit/3 Ml Pen) 5 unit SUBQ TIDWM [facility]; Protocol Last Admin: 12/09/21 09:19 Dose: 5 unit Insulin Glargine (Insulin Glargine 300 Unit/3 Ml Pen) 10 unit SUBQ QPM [facility] Last Admin: 12/08/21 21:21 Dose: 10 unit Insulin Glargine (Insulin Glargine 300 Unit/3 Ml Pen) 5 unit SUBQ QDBREAKFAST [facility] Last Admin: 12/09/21 09:18 Dose: 5 unit Lisinopril (Lisinopril 5 Mg Tablet) 10 mg PO DAILY [facility] Multivitamins/Minerals (Multivitamin W/Minerals Tablet) 1 tab PO DAILYWM [facility] Ondansetron HCl (Ondansetron 4 Mg/2 Ml Vial) 4 mg IVP Q6HR PRN PRN Reason: Nausea / Vomiting Polyethylene Glycol (Polyethylene Glycol 3350 17 Gm Packet) 17 gm PO DAILY [facility] Last Admin: 12/09/21 09:21 Dose: 17 gm Risperidone (Risperidone 1 Mg Tablet) 0.5 mg PO QPM [facility] Last Admin: 12/08/21 21:21 Dose: 0.5 mg Saccharomyces Boulardii (Saccharomyces Boulardii 250 Mg Capsule) 500 mg PO BIDWM [facility] Last Admin: 12/09/21 07:45 Dose: 500 mg Sodium Chloride (Sodium Chloride Flush 0.9% 10 Ml Syringe) 10 ml IVP PRN PRN PRN Reason: NEEDED PER PROVIDER ORDERS Sodium Chloride (Sodium Chloride Flush 0.9% 10 Ml Syringe) 10 ml IVP 010 0,0900,1700 ANNY Last Admin: 12/09/21 08:23 Dose: 10 ml Glimepiride [Amaryl] 4 mg PO DAILYWM 12/07/21 Lisinopril [Zestril] 10 mg PO DAILY 12/07/21 Rosuvastatin Calcium [Crestor] 10 mg PO QPM 12/07/21 risperiDONE [Risperdal] 0.25 mg PO BID 12/07/21
[2021-12-09] MEDS: MULTIVITAMIN W/MINERALS TABLET PO SCH (16:29)
[2021-12-09] MEDS: guaiFENesin 100 MG/5 ML UDC PO PRN (16:32)
[2021-12-09 20:10] LABS: CALCIUM 8.8 mg/dL (8.5-10.3); CREATININE 1.1 mg/dL (0.6-1.2); POTASSIUM 3.5 mmol/L (3.5-5.0)
[2021-12-09] MEDS: AZITHROMYCIN INJ 500 MG in SODIUM CHLORIDE 0.9% 250 ML IV SCH (20:33)
[2021-12-09] MEDS: risperiDONE 1 MG TABLET PO SCH (20:34)
[2021-12-09] MEDS: cefTRIAXone 2 GM in SODIUM CHLORIDE 0.9% MINIBAG 100 ML IV SCH (21:28)
[2021-12-09] MEDS: ACETAMINOPHEN 325 MG TABLET PO PRN (23:58)
[2021-12-10] MEDS: guaiFENesin 100 MG/5 ML UDC PO PRN (04:57)
[2021-12-10 06:29] LABS: BASOPHILS % (AUTO) 0.1 %; HCT - HEMATOCRIT 36.1 % (42.0-52.0); HGB - HEMOGLOBIN 11.9 g/dL (14.0-18.0); LYMPHOCYTES # (AUTO) 0.4 10^3/uL (1.5-3.5); LYMPHOCYTES % (AUTO) 3.5 %; MEAN CORPUSCULAR HEMOGLOBIN 28.3 pg (27.0-31.0); MEAN PLATELET VOLUME 9.7 fL (7.4-11.4); MONOCYTES # (AUTO) 0.6 10^3/uL (0.0-1.0); MONOCYTES % (AUTO) 5.3 %; NEUTROPHILS # (AUTO) 10.1 10^3/uL (1.5-6.6); NEUTROPHILS % (AUTO) 89.8 %; PLT - PLATELET COUNT 273 10^3/uL (130-450); RED CELL DISTRIBUTION WIDTH 12.9 % (12.0-15.0); WHITE BLOOD COUNT 11.3 x10^3/uL (4.8-10.8)
[2021-12-10 06:37] LABS: CALCIUM 8.5 mg/dL (8.5-10.3); POTASSIUM 3.5 mmol/L (3.5-5.0)
[2021-12-10] MEDS: SODIUM CHLORIDE FLUSH 0.9% 10 ML SYRINGE IVP SCH ×3 (07:54→17:02)
[2021-12-10] MEDS: SACCHAROMYCES BOULARDII 250 MG CAPSULE PO SCH ×2 (07:54→17:02)
[2021-12-10] MEDS: INSULIN ASPART 300 UNIT/3 ML PEN SUBQ SCH ×7 (07:54→22:50)
[2021-12-10] MEDS: MULTIVITAMIN W/MINERALS TABLET PO SCH (07:56)
[2021-12-10] MEDS: INSULIN GLARGINE 300 UNIT/3 ML PEN SUBQ SCH ×2 (07:56→22:50)
[2021-12-10] MEDS: ENOXAPARIN 40 MG/0.4 ML SYRINGE SUBQ SCH (08:51)
[2021-12-10] MEDS: lisinopriL 5 MG TABLET PO SCH (08:52)
[2021-12-10] MEDS: polyethylene glycoL 3350 17 GM PACKET PO SCH (08:52)
[2021-12-10] MEDS: DEXAMETHASONE 4 MG/ML VIAL IVP SCH (08:53)
[2021-12-10] MEDS: D5.45NS W/20 MEQ KCL 1,000 ML IV SCH ×2 (08:54→19:27)
[2021-12-10] MEDS: REMDESIVIR 100MG VIAL 100 MG in SODIUM CHLORIDE 0.9% 100ML 100 ML IV SCH (08:54)
--- NOTE | 2021-12-10 10:28 | PROVIDER PROGRESS NOTE ---
Assessment/Plan - Problem List (1) Hypernatremia Assessment/Plan: 12/10 improved, Na is 149 now,it is likely hypovolemia and hypernatremia, continue D5 1/2 NS and lab monitor. advise pt's keep pt hydration at home pt is Na is 152, it is likely hypovolemia and hypernatremia, add D5 1/2 NS now, discussed with nurse, keep pt hydration with free water. continue lab monitor (2) Sepsis Assessment/Plan: 12/10 improved/resolved. Patient is hemodynamically stable, continue antibiotics treatment for his PNA, continue IVF and vial and lab monitor. 12/09, improved. his lactic acid is down to 1.8, Hemodynamic is stable. Patient ate 75% of his breakfast. We will continue treat for his COVID-19 pneumonia And CAP, Continue hydration for patient. Patient's blood culture showed negative for bacteremia (3) Pneumonia due to COVID-19 virus Assessment/Plan: 12/10 improved. pt had 97% on room air now. continue treatment for Covid 19 12/09 Patient COVID-19 test turned to be positive. pt need O2 support at morning. we will continue Covid 19 treatment for pt, continue decatron, Remdesivir, Lovenox. Tylenol as needed for fever. (4) CAP (community acquired pneumonia) Assessment/Plan: 12/10 improved. pt had 97% on room air now, continue antibiotics and probiotics 12/09 pt had COVID-19 pneumonia and possibly community-acquired pneumonia. continue antibiotic and probiotics. Tylenol as needed for fever. (5) Prerenal azotemia 12/10 improved, BUN reduced, continue IVF and lab monitor pt had elevated BUN, sodium and chloride. keep pt hydration and add D5 1/2 NS, lab monitor (6) AMS (altered mental status) acut on chronic. pt has hx of advanced dementia. Acutely may be due to infections: Covid and community-acquired pneumonia and possible hypoxia and dehydration. treat underline infection as above, continue hydration for pt, and continue neuro check (7) Advanced dementia Assessment/Plan: On risperidone 0.5 mg po q pm. 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 Amaryl held. increased Lantus, and slide scale insulin. continue Accu-Cheks before every meal and at bedtime, continue hypoglycemia protocol (9) HTN (hypertension) Assessment/Plan: Lisinopril 10 mg p.o. daily. Hydralazine 10 mg IV every 4 hours as needed for systolic blood pressure greater than 160 - Current Meds Current Meds: Current Medications Generic Name Dose Route Start Last Admin Trade Name Freq PRN Reason Stop Dose Admin Acetaminophen 650 mg 12/08/21 00:31 12/09/21 23:58 Acetaminophen 325 Mg Tablet PO 650 mg Q4HR PRN Administration Pain or Fever > 38C (100.4F) Dexamethasone 6 mg 12/09/21 09:00 12/10/21 08:53 Dexamethasone 4 Mg/Ml Vial IVP 6 mg DAILY ANNY Administration Enoxaparin Sodium 40 mg 12/08/21 09:00 12/10/21 08:51 Enoxaparin 40 Mg/0.4 Ml Syringe SUBQ 40 mg DAILY ANNY Administration Guaifenesin 100 mg 12/08/21 12:58 12/10/21 04:57 Guaifenesin 100 Mg/5 Ml Udc PO 100 mg Q6HR PRN Administration Cough Hydralazine HCl 10 mg 12/08/21 13:16 12/09/21 04:29 Hydralazine Inj 20 Mg/Ml Vial IVP 10 mg Q4H PRN Administration PER PHYSICIAN ORDER Ceftriaxone Sodium 2 gm/ 100 mls @ 200 mls/hr 12/08/21 22:00 12/09/21 22:12 Sodium Chloride IV Infused 2200 ANNY Infusion Remdesivir 100 mg/ Sodium 100 mls @ 200 mls/hr 12/10/21 09:00 12/10/21 09:30 Chloride IV 12/13/21 09:29 Infused DAILY ANNY Infusion Potassium Chloride/Dextrose/Sod Cl 1,000 mls @ 100 mls/hr 12/10/21 09:00 12/10/21 08:54 D5.45ns W/20 Meq Kcl IV 100 mls/hr .Q10H ANNY Administration Insulin Aspart 3 - 11 unit 12/09/21 08:00 12/10/21 07:54 Insulin Aspart 300 Unit/3 Ml Pen SUBQ 7 unit 0800,1200,1700,2100 ANNY Administration Protocol Insulin Aspart 5 unit 12/09/21 08:33 12/10/21 07:55 Insulin Aspart 300 Unit/3 Ml Pen SUBQ 5 unit TIDWM ANNY Administration Protocol Insulin Glargine 10 unit 12/08/21 21:00 12/09/21 20:39 Insulin Glargine 300 Unit/3 Ml Pen SUBQ 10 unit QPM ANNY Administration Insulin Glargine 5 unit 12/09/21 09:00 12/10/21 07:56 Insulin Glargine 300 Unit/3 Ml Pen SUBQ 5 unit QDBREAKFAST ANNY Administration Lisinopril 10 mg 12/10/21 09:00 12/10/21 08:52 Lisinopril 5 Mg Tablet PO 10 mg DAILY ANNY Administration Multivitamins/Minerals 1 tab 12/09/21 16:00 12/10/21 07:56 Multivitamin W/Minerals Tablet PO 1 tab DAILYWM ANNY Administration Polyethylene Glycol 17 gm 12/09/21 09:00 12/10/21 08:52 Polyethylene Glycol 3350 17 Gm Packet PO 17 gm DAILY ANNY Administration Risperidone 0.5 mg 12/08/21 21:00 12/09/21 20:34 Risperidone 1 Mg Tablet PO 0.5 mg QPM ANNY Administration Saccharomyces Boulardii 500 mg 12/08/21 08:00 12/10/21 07:54 Saccharomyces Boulardii 250 Mg Capsule PO 500 mg BIDWM ANNY Administration Sodium Chloride 10 ml 12/08/21 01:00 12/10/21 07:54 Sodium Chloride Flush 0.9% 10 Ml Syringe IVP 10 ml 0100,0900,1700 ANNY Administration - Lab Result Fish Bone Diagrams: 12/10/21 06:21 12/10/21 06:21 - Additional Planning My Orders: My Active Orders 12/09/21 11:07 Neuro Check [RC] QSHIFT 12/09/21 16:00 Multivitamin W/Minerals [Theragran M] 1 tab PO DAILYWM 12/10/21 09:00 D5.45ns W/20 Meq KCl 1,000 ml IV 100 mls/hr Remdesivir 100Mg Vial [Veklury] 100 mg Sodium Chloride 0.9% 100Ml [Normal Saline 0.9% 100Ml] 100 ml IV DAILY lisinopriL [Zestril] 10 mg PO DAILY Subjective - Subjective Patient Reports: Resting Comfortably Objective Vital Signs: Vital Signs - 24 hr 12/09/21 12/09/21 12/09/21 11:34 15:58 16:36 Temperature 36.7 C 36.6 C Heart Rate [ 98 Brachial] Heart Rate [ 93 89 Monitoring electrodes] Respiratory 26 H 94 H Rate Blood Pressure 159/87 H [Right Brachial artery] Blood Pressure 163/75 H 141/60 H [Right Radial artery] O2 Saturation 92 24 L 12/09/21 12/10/21 12/10/21 20:30 00:03 04:58 Temperature 36.7 C 37.2 C 36.4 C L Heart Rate [ Brachial] Heart Rate [ 105 H 112 H 95 Monitoring electrodes] Respiratory 18 22 18 Rate Blood Pressure 164/78 H [Right Brachial artery] Blood Pressure 130/77 160/68 H [Right Radial artery] O2 Saturation 99 100 96 12/10/21 07:38 Temperature 36.5 C Heart Rate [ 98 Brachial] Heart Rate [ Monitoring electrodes] Respiratory 20 Rate Blood Pressure 164/88 H [Right Brachial artery] Blood Pressure [Right Radial artery] O2 Saturation 97 Oxygen O2 Source Room air Oxygen Flow Rate 2 I&O (Last 24 Hrs): Intake and Output Totals x24h 12/08/21 12/09/21 12/10/21 23:59 23:59 23:59 Intake Total 3612.500 3703.333 1250 Output Total 70 Balance 3542.500 3703.333 1250 General: Alert, No acute distress HEENT: Atraumatic Neck: Supple Lymphatic: no adenopathy Neuro: Alert, Non Focal Cardiovascular: Regular rate, Normal S1, Normal S2 Respiratory: Chest non-tender, No respiratory distress Abdomen: Normal bowel sounds, Soft Extremities: Normal pulses - Results Results: Laboratory Results WBC 11.3 x10^3/uL (4.8-10.8) H 12/10/21 06:21 RBC 4.20 10^6/uL (4.70-6.10) L 12/10/21 06:21 Hgb 11.9 g/dL (14.0-18.0) L 12/10/21 06:21 Hct 36.1 % (42.0-52.0) L 12/10/21 06:21 MCV 86.0 fL (80.0-94.0) 12/10/21 06:21 MCH 28.3 pg (27.0-31.0) 12/10/21 06:21 MCHC 33.0 g/dL (32.0-36.0) 12/10/21 06:21 RDW 12.9 % (12.0-15.0) 12/10/21 06:21 Plt Count 273 10^3/uL (130-450) 12/10/21 06:21 MPV 9.7 fL (7.4-11.4) 12/10/21 06:21 Neut # (Auto) 10.1 10^3/uL (1.5-6.6) H 12/10/21 06:21 Lymph # (Auto) 0.4 10^3/uL (1.5-3.5) L 12/10/21 06:21 [place] # (Auto) 0.6 10^3/uL (0.0-1.0) 12/10/21 06:21 Eos # (Auto) 0.0 10^3/uL (0.0-0.7) 12/10/21 06:21 Baso # (Auto) 0.0 10^3/uL (0.0-0.1) 12/10/21 06:21 Absolute Nucleated RBC 0.00 x10^3/uL 12/10/21 06:21 Nucleated RBC % 0.0 /100WBC 12/10/21 06:21 D-Dimer 867.2 ng/mL (200.0-255.0) H 12/08/21 05:00 Sodium 149 mmol/L (135-145) H 12/10/21 06:21 Potassium 3.5 mmol/L (3.5-5.0) 12/10/21 06:21 Chloride 117 mmol/L (101-111) H 12/10/21 06:21 Carbon Dioxide 22 mmol/L (21-32) 12/10/21 06:21 Anion Gap 10.0 (6-13) 12/10/21 06:21 BUN 29 mg/dL (6-20) H 12/10/21 06:21 Creatinine 1.0 mg/dL (0.6-1.2) 12/10/21 06:21 Estimated GFR (MDRD) 72 (>89) L 12/10/21 06:21 Glucose 224 mg/dL (70-100) H 12/10/21 06:21 POC Whole Bld Glucose 253 mg/dL (70 - 100) H 12/10/21 07:25 Estimat Average Glucose 217 mg/dL (70-100) H 12/08/21 00:00 Hemoglobin A1c % 9.2 % (4.27-6.07) H 12/08/21 00:00 Lactic Acid 1.8 mmol/L (0.5-2.2) 12/08/21 01:55 Calcium 8.5 mg/dL (8.5-10.3) 12/10/21 06:21 Phosphorus 3.1 mg/dL (2.5-4.6) 12/08/21 05:00 Magnesium 2.4 mg/dL (1.7-2.8) 12/08/21 05:00 Total Bilirubin 1.3 mg/dL (0.2-1.0) H 12/07/21 22:00 AST 43 IU/L (10-42) H 12/07/21 22:00 ALT 38 IU/L (10-60) 12/07/21 22:00 Alkaline Phosphatase 99 IU/L (42-121) 12/07/21 22:00 Total Protein 8.1 g/dL (6.7-8.2) 12/07/21 22:00 Albumin 3.3 g/dL (3.2-5.5) 12/07/21 22:00 Globulin 4.8 g/dL (2.1-4.2) H 12/07/21 22:00 Albumin/Globulin Ratio 0.7 (1.0-2.2) L 12/07/21 22:00 Lipase 26 U/L (22-51) 12/07/21 22:00 25-OH Vitamin D Total 64 ng/mL (30-100) 12/07/21 22:00 Urine Color YELLOW 12/08/21 00:30 Urine Clarity CLEAR (CLEAR) 12/08/21 00:30 Urine pH 5.0 PH (5.0-7.5) 12/08/21 00:30 Ur Specific [place] 1.025 (1.002-1.030) 12/08/21 00:30 Urine Protein 100 mg/dL (NEGATIVE) H 12/08/21 00:30 Urine Glucose (UA) >=1000 mg/dL (NEGATIVE) H 12/08/21 00:30 Urine Ketones 15 mg/dL (NEGATIVE) H 12/08/21 00:30 Urine Occult Blood MODERATE (NEGATIVE) H 12/08/21 00:30 Urine Nitrite NEGATIVE (NEGATIVE) 12/08/21 00:30 Urine Bilirubin NEGATIVE (NEGATIVE) 12/08/21 00:30 Urine Urobilinogen 0.2 (NORMAL) E.U./dL (NORMAL) 12/08/21 00:30 Ur Leukocyte Esterase NEGATIVE (NEGATIVE) 12/08/21 00:30 Urine RBC 0-5 /HPF (0-5) 12/08/21 00:30 Urine WBC 0-3 /HPF (0-3) 12/08/21 00:30 Ur Squamous Epith Cells RARE Squamous (<= Few) 12/08/21 00:30 Urine Bacteria Rare /HPF (None Seen) 12/08/21 00:30 Ur Microscopic Review INDICATED 12/08/21 00:30 Urine Culture Comments NOT INDICATED 12/08/21 00:30 - Procedures Procedures: Procedures REPLACEMENT OF LEFT LENS WITH SYNTH SUB, PERC APPROACH (03/30/19) REPLACEMENT OF RIGHT LENS WITH SYNTH SUB, PERC APPROACH (01/05/19) Sepsis Event Note (H) - Evaluation Current Stage of Sepsis: Sepsis - Sepsis Criteria Sepsis Criteria: Recorded Heart Rate greater than 90 bpm, Respiratory: Inc reasing oxygen requirements, ORDER SCHEDULE CLERK: altered consciousness (unrelated to primary neuro pathology), Metabolic: lactate > 2 mmol/L ABX Reporting Has patient been on IV antibiotics over the past 48 hours?: Yes Current Medications - Current Medications Current Medications: Active Medications Acetaminophen (Acetaminophen 325 Mg Tablet) 650 mg PO Q4HR PRN PRN Reason: Pain or Fever > 38C (100.4F) Last Admin: 12/09/21 23:58 Dose: 650 mg Dexamethasone (Dexamethasone 4 Mg/Ml Vial) 6 mg IVP DAILY [facility] Last Admin: 12/10/21 08:53 Dose: 6 mg Enoxaparin Sodium (Enoxaparin 40 Mg/0.4 Ml Syringe) 40 mg SUBQ DAILY [facility] Last Admin: 12/10/21 08:51 Dose: 40 mg Guaifenesin (Guaifenesin 100 Mg/5 Ml Udc) 100 mg PO Q6HR PRN PRN Reason: Cough Last Admin: 12/10/21 04:57 Dose: 100 mg Hydralazine HCl (Hydralazine Inj 20 Mg/Ml Vial) 10 mg IVP Q4H PRN PRN Reason: PER PHYSICIAN ORDER Last Admin: 12/09/21 04:29 Dose: 10 mg Ceftriaxone Sodium 2 gm/ (Sodium Chloride) 100 mls @ 200 mls/hr IV 2200 [facility] Last Infusion: 12/09/21 22:12 Dose: Infused Remdesivir 100 mg/ Sodium (Chloride) 100 mls @ 200 mls/hr IV DAILY [facility] Stop: 12/13/21 09:29 Last Infusion: 12/10/21 09:30 Dose: Infused Potassium Chloride/Dextrose/Sod Cl (D5.45ns W/20 Meq Kcl) 1,000 mls @ 100 mls/hr IV .Q10H [facility] Last Admin: 12/10/21 08:54 Dose: 100 mls/hr Insulin Aspart (Insulin Aspart 300 Unit/3 Ml Pen) 3 - 11 unit SUBQ 0800,1200,1700,2100 [facility]; Protocol Last Admin: 12/10/21 07:54 Dose: 7 unit Insulin Aspart (Insulin Aspart 300 Unit/3 Ml Pen) 5 unit SUBQ TIDWM [facility]; Protocol Last Admin: 12/10/21 07:55 Dose: 5 unit Insulin Glargine (Insulin Glargine 300 Unit/3 Ml Pen) 10 unit SUBQ QPM [facility] Last Admin: 12/09/21 20:39 Dose: 10 unit Insulin Glargine (Insulin Glargine 300 Unit/3 Ml Pen) 5 unit SUBQ QDBREAKFAST [facility] Last Admin: 12/10/21 07:56 Dose: 5 unit Lisinopril (Lisinopril 5 Mg Tablet) 10 mg PO DAILY [facility] Last Admin: 12/10/21 08:52 Dose: 10 mg Multivitamins/Minerals (Multivitamin W/Minerals Tablet) 1 tab PO DAILYWM [facility] Last Admin: 12/10/21 07:56 Dose: 1 tab Ondansetron HCl (Ondansetron 4 Mg/2 Ml Vial) 4 mg IVP Q6HR PRN PRN Reason: Nausea / Vomiting Polyethylene Glycol (Polyethylene Glycol 3350 17 Gm Packet) 17 gm PO DAILY [facility] Last Admin: 12/10/21 08:52 Dose: 17 gm Risperidone (Risperidone 1 Mg Tablet) 0.5 mg PO QPM [facility] Last Admin: 12/09/21 20:34 Dose: 0.5 mg Saccharomyces Boulardii (Saccharomyces Boulardii 250 Mg Capsule) 500 mg PO BIDWM [facility] Last Admin: 12/10/21 07:54 Dose: 500 mg Sodium Chloride (Sodium Chloride Flush 0.9% 10 Ml Syringe) 10 ml IVP PRN PRN PRN Reason: NEEDED PER PROVIDER ORDERS Sodium Chloride (Sodium Chloride Flush 0.9% 10 Ml Syringe) 10 ml IVP 0100,0900,1700 [facility] Last Admin: 12/10/21 07:54 Dose: 10 ml Glimepiride [Amaryl] 4 mg PO DAILYWM 12/07/21 Lisinopril [Zestril] 10 mg PO DAILY 12/07/21 Rosuvastatin Calcium [Crestor] 10 mg PO QPM 12/07/21 risperiDONE [Risperdal] 0.25 mg PO BID 12/07/21
--- NOTE | 2021-12-10 19:21 | XRAY Report ---
PROCEDURE: Chest 1 View X-Ray INDICATIONS: sob TECHNIQUE: One view of the chest was acquired. COMPARISON: December 07, 2021 FINDINGS: SUPPORT DEVICES: None. LUNGS/PLEURA: Prominent interstitial markings with blunting of the costophrenic sulci. No pneumothora x. MEDIASTINUM: The cardiomediastinal silhouette is within normal limits. BONES/SOFT TISSUES: No acute abnormality. IMPRESSION: 1.Pulmonary edema pattern with small bilateral pleural effusions. Reviewed by: Berto Persaud MD on 12/10/2021 7:20 PM PST Approved by: Berto Persaud MD on 12/10/2021 7:20 PM [facility] Station ID: [id number]
[2021-12-10] MEDS: hydrALAZINE INJ 20 MG/ML VIAL IVP PRN (19:52)
[2021-12-10] MEDS ORDERED: diltiaZEM INJ 5 MG/ML VIAL IVP ONE (21:01)
[2021-12-10] MEDS ORDERED: IOVERSOL 320 100 ML VIAL IVP ONE ×2 (21:46→22:53)
--- NOTE | 2021-12-10 21:49 | PROVIDER PROGRESS NOTE ---
Feeder Worker Power Unit Operator Note - Feeder Worker Power Unit Operator Note Feeder Worker Power Unit Operator Note: December 10, 2021 9:48 PM Nurse taking care of this patient has come to inform me that the has a copy of a POLST form. Patient does not wish to be full code and he wishes to be DO NOT RESUSCITATE. This evening he also had an episode of tachycardia 240 150. EKG shows atrial fibrillation. CT pulmonary angiogram ordered to make sure he has not had a PE, and is received 10 mg of diltiazem IV push to slow down his heart rate. He is tolerating this from a blood pressure perspective but is more hypoxic and appears to have mild CHF.
[2021-12-10] MEDS: cefTRIAXone 2 GM in SODIUM CHLORIDE 0.9% MINIBAG 100 ML IV SCH (22:49)
[2021-12-10] MEDS: risperiDONE 1 MG TABLET PO SCH (22:51)
--- NOTE | 2021-12-10 23:58 | CT Report ---
PROCEDURE: ANGIO CHEST W/WO INDICATIONS: sudden tachy and hypoxia CONTRAST: IV CONTRAST: Optiray 320 ml. TECHNIQUE: After the administration of intravenous contrast, 2 mm axial images were acquired from the pulmonary apices to the posterior costophrenic angles during the arterial phase. In addition, 1 mm lung kernel and 5 mm soft tissue kernel reconstructions were performed. 3-dimensional coronal oblique maximum int ensity projection (MIP) reformats, 8 mm axial MIP, and 5 mm coronal and sagittal MPR reformats were t hen performed through the thorax. For radiation dose reduction, the following was used: automated exp osure control, adjustment of mA and/or kV according to patient size. COMPARISON: Chest x-ray one view, 12/10/2021. FINDINGS: Image quality: Limited examination due to respiratory motion artifacts. Pulmonary arteries: Pulmonary arteries are normal in size, and demonstrate no intraluminal filling d efects to suggest central pulmonary embolism. Lungs and pleura: Bilateral infiltrates and consolidations, right greater than left, consistent with pneumonia. Small right pleural effusion and trace left pleural effusion. No pneumothorax. Central a nd peripheral airways are patent. Mediastinum: Heart size is normal, without pericardial effusion. Mild coronary artery calcification . No mediastinal or hilar adenopathy. Thoracic aorta is normal in caliber and enhancement. Esophagu s is normal in caliber, without hiatal hernia. Bones and chest wall: No suspicious bony lesions. Ribs and thoracic spine appear intact throughout. No axillary or supraclavicular adenopathy. The thyroid is normal in size and there are no incident al findings. Abdomen: Visualized upper abdominal solid organs appear normal in the early arterial phase of enhanc ement. IMPRESSION: 1. Limited examination due to respiratory motion artifacts. No definitive pulmonary embolism. 2. Bilateral pneumonia. 3. Small right effusion and trace left pleural effusion. 4. Mild coronary artery calcification. Reviewed by: Sia Hayden MD on 12/10/2021 11:58 PM PST Approved by: Sia Hayden MD on 12/10/2021 11:58 PM PST Station ID: [id number]
[2021-12-11] MEDS: SODIUM CHLORIDE FLUSH 0.9% 10 ML SYRINGE IVP SCH ×3 (00:02→21:37)
[2021-12-11] MEDS ORDERED: ASPIRIN 325 MG TABLET PO STA (00:21)
[2021-12-11] MEDS ORDERED: diltiaZEM 30 MG TABLET PO SCH (01:00)
[2021-12-11] MEDS: METOPROLOL TARTRATE 25 MG TABLET PO SCH ×3 (01:06→21:32)
[2021-12-11 06:18] LABS: BASOPHILS % (AUTO) 0.2 %; EOSINOPHILS % (AUTO) 0.1 %; HCT - HEMATOCRIT 35.9 % (42.0-52.0); HGB - HEMOGLOBIN 11.7 g/dL (14.0-18.0); LYMPHOCYTES # (AUTO) 0.5 10^3/uL (1.5-3.5); LYMPHOCYTES % (AUTO) 4.6 %; MEAN CORPUSCULAR HEMOGLOBIN 28.3 pg (27.0-31.0); MEAN CORPUSCULAR HGB CONC 32.6 g/dL (32.0-36.0); MEAN CORPUSCULAR VOLUME 86.7 fL (80.0-94.0); MEAN PLATELET VOLUME 9.8 fL (7.4-11.4); MONOCYTES # (AUTO) 0.6 10^3/uL (0.0-1.0); NEUTROPHILS # (AUTO) 10.3 10^3/uL (1.5-6.6); NEUTROPHILS % (AUTO) 88.7 %; PLT - PLATELET COUNT 278 10^3/uL (130-450); RED BLOOD COUNT 4.14 10^6/uL (4.70-6.10); RED CELL DISTRIBUTION WIDTH 13.1 % (12.0-15.0); WHITE BLOOD COUNT 11.6 x10^3/uL (4.8-10.8)
[2021-12-11 06:26] LABS: CALCIUM 8.6 mg/dL (8.5-10.3); POTASSIUM 4.1 mmol/L (3.5-5.0)
[2021-12-11] MEDS ORDERED: ATORVASTATIN 40 MG TABLET PO STA (06:47)
[2021-12-11] MEDS: INSULIN ASPART 300 UNIT/3 ML PEN SUBQ SCH ×7 (07:52→21:37)
[2021-12-11] MEDS: MULTIVITAMIN W/MINERALS TABLET PO SCH (07:53)
[2021-12-11] MEDS: INSULIN GLARGINE 300 UNIT/3 ML PEN SUBQ SCH ×2 (07:53→21:38)
[2021-12-11] MEDS: SACCHAROMYCES BOULARDII 250 MG CAPSULE PO SCH ×2 (07:54→21:31)
[2021-12-11] MEDS: lisinopriL 5 MG TABLET PO SCH (08:24)
[2021-12-11] MEDS: ENOXAPARIN 40 MG/0.4 ML SYRINGE SUBQ SCH ×2 (08:24→21:33)
[2021-12-11] MEDS: DEXAMETHASONE 4 MG/ML VIAL IVP SCH (08:25)
[2021-12-11] MEDS: polyethylene glycoL 3350 17 GM PACKET PO SCH (08:25)
[2021-12-11] MEDS: ACETAMINOPHEN 325 MG TABLET PO PRN (08:25)
[2021-12-11] MEDS: REMDESIVIR 100MG VIAL 100 MG in SODIUM CHLORIDE 0.9% 100ML 100 ML IV SCH (09:00)
--- NOTE | 2021-12-11 11:41 | PROVIDER PROGRESS NOTE ---
Subjective - Prog Note Date Prog Note Date: 12/11/21 - Subjective Subjective: pt is feed his breakfast by his , pt ate 75% of his breakfast. Updated pt's conditions to pt's , pt appear NSTEMI on last night, troponin elevated over 1999, EKG show V4,5,6 ST depression, ECHO was ordered for; pt had Atrial fibrillation on last night, After treatment, his heart rate is controlled now; Patient's pneumonia was worsening. Patient is hemodynamic stable but requiring more oxygen to support. Patient's agree continue DNR for patient's CODE STATUS. She report patient's son will come next week Wednesday To visit her his father from [place], She hope we let his son see his father. I said yes. She hope we continue treat pt as the best at this hospital and We discussed the care plan as well, and She agreed. Current Medications - Current Medications Current Medications: Active Medications Acetaminophen (Acetaminophen 325 Mg Tablet) 650 mg PO Q4HR PRN PRN Reason: Pain or Fever > 38C (100.4F) Last Admin: 12/11/21 08:25 Dose: 650 mg Atorvastatin Calcium (Atorvastatin 40 Mg Tablet) 40 mg PO QPM ANNY Dexamethasone (Dexamethasone 4 Mg/Ml Vial) 6 mg IVP DAILY [facility] Last Admin: 12/11/21 08:25 Dose: 6 mg Enoxaparin Sodium (Enoxaparin 40 Mg/0.4 Ml Syringe) 40 mg SUBQ BID ANNY Last Admin: 12/11/21 08:24 Dose: 40 mg Guaifenesin (Guaifenesin 100 Mg/5 Ml Udc) 100 mg PO Q6HR PRN PRN Reason: Cough Last Admin: 12/10/21 04:57 Dose: 100 mg Hydralazine HCl (Hydralazine Inj 20 Mg/Ml Vial) 10 mg IVP Q4H PRN PRN Reason: PER PHYSICIAN ORDER Last Admin: 12/10/21 19:52 Dose: 10 mg Ceftriaxone Sodium 2 gm/ (Sodium Chloride) 100 mls @ 200 mls/hr IV 2200 ANNY Last Infusion: 12/10/21 23:19 Dose: Infused Remdesivir 100 mg/ Sodium (Chloride) 100 mls @ 200 mls/hr IV DAILY ANNY Stop: 12/13/21 09:29 Last Infusion: 12/11/21 09:30 Dose: Infused Insulin Aspart (Insulin Aspart 300 Unit/3 Ml Pen) 3 - 11 unit SUBQ 0800,1200,1700,2100 [facility]; Protocol Last Admin: 12/11/21 11:47 Dose: 5 unit Insulin Aspart (Insulin Aspart 300 Unit/3 Ml Pen) 5 unit SUBQ TIDWM [facility]; Protocol Last Admin: 12/11/21 11:47 Dose: 5 unit Insulin Glargine (Insulin Glargine 300 Unit/3 Ml Pen) 10 unit SUBQ QPM [facility] Last Admin: 12/10/21 22:50 Dose: 10 unit Insulin Glargine (Insulin Glargine 300 Unit/3 Ml Pen) 5 unit SUBQ QDBREAKFAST [facility] Last Admin: 12/11/21 07:53 Dose: 5 unit Lisinopril (Lisinopril 5 Mg Tablet) 10 mg PO DAILY [facility] Last Admin: 12/11/21 08:24 Dose: 10 mg Metoprolol Tartrate (Metoprolol Tartrate 25 Mg Tablet) 25 mg PO BID [facility] Last Admin: 12/11/21 08:24 Dose: 25 mg Multivitamins/Minerals (Multivitamin W/Minerals Tablet) 1 tab PO DAILYWM [facility] Last Admin: 12/11/21 07:53 Dose: 1 tab Ondansetron HCl (Ondansetron 4 Mg/2 Ml Vial) 4 mg IVP Q6HR PRN PRN Reason: Nausea / Vomiting Polyethylene Glycol (Polyethylene Glycol 3350 17 Gm Packet) 17 gm PO DAILY [facility] Last Admin: 12/11/21 08:25 Dose: 17 gm Risperidone (Risperidone 1 Mg Tablet) 0.5 mg PO QPM [facility] Last Admin: 12/10/21 22:51 Dose: 0.5 mg Saccharomyces Boulardii (Saccharomyces Boulardii 250 Mg Capsule) 500 mg PO BIDWM [facility] Last Admin: 12/11/21 07:54 Dose: 500 mg Sodium Chloride (Sodium Chloride Flush 0.9% 10 Ml Syringe) 10 ml IVP PRN PRN PRN Reason: NEEDED PER PROVIDER ORDERS Sodium Chloride (Sodium Chloride Flush 0.9% 10 Ml Syringe) 10 ml IVP 0100,0900,1700 [facility] Last Admin: 12/11/21 08:25 Dose: 10 ml Glimepiride [Amaryl] 4 mg PO DAILYWM 12/07/21 Lisinopril [Zestril] 10 mg PO DAILY 12/07/21 Rosuvastatin Calcium [Crestor] 10 mg PO QPM 12/07/21 risperiDONE [Risperdal] 0.25 mg PO BID 12/07/21 Objective - Vital Signs/Intake & Output Vital Signs: Vital Signs x48h Temp Pulse Resp BP Pulse Ox 12/11/21 11:06 36.5 C 82 24 122/53 L 95 12/11/21 07:40 36.7 C 86 20 166/82 H 97 12/11/21 05:57 79 19 154/70 H 95 Intake & Output: Intake & Output 12/08/21 12/09/21 12/10/21 12/11/21 23:59 23:59 23:59 23:59 Intake Total 3612.500 3703.333 2705 1185 Output Total 70 Balance 3542.500 3703.333 2705 1185 - Objective General Appearance: positive: Alert, Mild distress. negative: Lethargic Eyes Bilateral: positive: Normal inspection, No lid inflammation ENT: positive: ENT inspection nml, No signs of dehydration Neck: positive: Nml inspection, Trachea midline. negative: Tracheal deviation Respiratory: positive: Chest non-tender, No respiratory distress, Rales. negative: Wheezes Cardiovascular: positive: Regular rate & rhythm. negative: Tachycardia, Bradycardia, Systolic murmur Peripheral Pulses: 2+ Radial (R), 2+ Radial (L) Abdomen: positive: Non-tender, Nml bowel sounds, No distention Back: positive: Nml inspection Skin: positive: Color nml, Warm, Dry Extremities: positive: Non-tender, Nml appearance Neurologic/Psychiatric: positive: Sensation nml. negative: Weakness, Sensory loss, Facial droop, Slurred/abnml speech - Lab Results Fish Bones: 12/11/21 06:00 12/11/21 06:00 Other Labs: Lab Results x24hrs 12/11/21 12/11/21 12/11/21 Range/Units 10:54 07:29 06:00 WBC (4.8-10.8) x10^3/uL RBC (4.70-6.10) 10^6/uL Hgb (14.0-18.0) g/dL Hct (42.0-52.0) % MCV (80.0-94.0) fL MCH (27.0-31.0) pg MCHC (32.0-36.0) g/dL RDW (12.0-15.0) % Plt Count (130-450) 10^3/uL MPV (7.4-11.4) fL Neut # (Auto) (1.5-6.6) 10^3/uL Lymph # (Auto) (1.5-3.5) 10^3/uL [place] # (Auto) (0.0-1.0) 10^3/uL Eos # (Auto) (0.0-0.7) 10^3/uL Baso # (Auto) (0.0-0.1) 10^3/uL Absolute Nucleated RBC x10^3/uL Nucleated RBC % /100WBC Sodium (135-145) mmol/L Potassium (3.5-5.0) mmol/L Chloride (101-111) mmol/L Carbon Dioxide (21-32) mmol/L Anion Gap (6-13) BUN (6-20) mg/dL Creatinine (0.6-1.2) mg/dL Estimated GFR (MDRD) (>89) Glucose (70-100) mg/dL POC Whole Bld Glucose 204 H 204 H (70 - 100) mg/dL Calcium (8.5-10.3) mg/dL Troponin I High Sens 2839.6 H* (2.3-19.7) ng/L 12/11/21 12/11/21 12/10/21 Range/Units 06:00 06:00 23:42 WBC 11.6 H (4.8-10.8) x10^3/uL RBC 4.14 L (4.70-6.10) 10^6/uL Hgb 11.7 L (14.0-18.0) g/dL Hct 35.9 L (42.0-52.0) % MCV 86.7 (80.0-94.0) fL MCH 28.3 (27.0-31.0) pg MCHC 32.6 (32.0-36.0) g/dL RDW 13.1 (12.0-15.0) % Plt Count 278 (130-450) 10^3/uL MPV 9.8 (7.4-11.4) fL Neut # (Auto) 10.3 H (1.5-6.6) 10^3/uL Lymph # (Auto) 0.5 L (1.5-3.5) 10^3/uL [place] # (Auto) 0.6 (0.0-1.0) 10^3/uL Eos # (Auto) 0.0 (0.0-0.7) 10^3/uL Baso # (Auto) 0.0 (0.0-0.1) 10^3/uL Absolute Nucleated RBC 0.00 x10^3/uL Nucleated RBC % 0.0 /100WBC Sodium 148 H (135-145) mmol/L Potassium 4.1 (3.5-5.0) mmol/L Chloride 116 H (101-111) mmol/L Carbon Dioxide 23 (21-32) mmol/L Anion Gap 9.0 (6-13) BUN 25 H (6-20) mg/dL Creatinine 1.0 (0.6-1.2) mg/dL Estimated GFR (MDRD) 72 L (>89) Glucose 203 H (70-100) mg/dL POC Whole Bld Glucose (70 - 100) mg/dL Calcium 8.6 (8.5-10.3) mg/dL Troponin I High Sens 241.3 H* (2.3-19.7) ng/L 12/10/21 12/10/21 Range/Units 20:59 16:36 WBC (4.8-10.8) x10^3/uL RBC (4.70-6.10) 10^6/uL Hgb (14.0-18.0) g/dL Hct (42.0-52.0) % MCV (80.0-94.0) fL MCH (27.0-31.0) pg MCHC (32.0-36.0) g/dL RDW (12.0-15.0) % Plt Count (130-450) 10^3/uL MPV (7.4-11.4) fL Neut # (Auto) (1.5-6.6) 10^3/uL Lymph # (Auto) (1.5-3.5) 10^3/uL [place] # (Auto) (0.0-1.0) 10^3/uL Eos # (Auto) (0.0-0.7) 10^3/uL Baso # (Auto) (0.0-0.1) 10^3/uL Absolute Nucleated RBC x10^3/uL Nucleated RBC % /100WBC Sodium (135-145) mmol/L Potassium (3.5-5.0) mmol/L Chloride (101-111) mmol/L Carbon Dioxide (21-32) mmol/L Anion Gap (6-13) BUN (6-20) mg/dL Creatinine (0.6-1.2) mg/dL Estimated GFR (MDRD) (>89) Glucose (70-100) mg/dL POC Whole Bld Glucose 289 H 278 H (70 - 100) mg/dL Calcium (8.5-10.3) mg/dL Troponin I High Sens (2.3-19.7) ng/L ABX Reporting Has patient been on IV antibiotics over the past 48 hours?: Yes Sepsis Event Note (H) - Evaluation Current Stage of Sepsis: Sepsis - Sepsis Criteria Sepsis Criteria: Recorded Heart Rate greater than 90 bpm, Respiratory: Increasing oxygen requirements, [employer]: altered consciousness (unrelated to primary neuro pathology), Metabolic: lactate > 2 mmol/L Assessment/Plan - Problem List (1) NSTEMI (non-ST elevated myocardial infarction) Impression: 12/11 Patient's Elevated to over 2000, EKG show V4, 5, [address] depression. patient is hemodynamic stable, his troponin is trended down to 1200. We will continue Lovenox twice daily therapeutic dosage for LA, Continue metoprolol, continue Lipitor. Order echo study. Updated patient's medical diagnosed and medical condition to patient's , And answered her questions, she agree the care plan and hope pt stay at this hospital to continue treatment. Patient had worsening pneumonia, patient had COVID-19 infection, patient had atrial fibrilla tion RVR. (2)Atria fibrillation with RVR Patient Had atrial fibrillation RVR on last night, his heart rate went up 160. Now patient become sinus rhythm, heart rate is around 80. Patient was treated with intravenous Cardizem once, now we will continue metoprolol, continue Lo venox. (3) Sepsis 12/11 Patient is hemodynamically stable now, lactic acid is down to the normal range, patient has no fever, blood culture is negative. We will continue finish the treatment course for COVID-19 and bacteriuria pneumonia as well 12/09, improved. his lactic acid is down to 1.8, Hemodynamic is stable. Patient ate 75% of his breakfast. We will continue treat for his COVID-19 pneumonia And CAP, Continue hydration for patient. Patient's blood culture showed negative for bacteremia (4) Pneumonia due to COVID-19 virus Assessment/Plan: 12-11 CTA of chest reveal worsening pneumonia. We will continue finish the treatment course for COVID-19, patient had a 95% oxygen saturation on 5 L oxygen now 12/09 Patient COVID-19 test turned to be positive. pt need O2 support at morning. we will continue Covid 19 treatment for pt, continue decatron, Remdesivir, Lovenox. Tylenol as needed for fever. (5) CAP (community acquired pneumonia) Assessment/Plan: 12/11 CTA of chest reveal worsening pneumonia. We will finish the treatment course for community-acquired pneumonia, continue supplemental oxygen as needed. 12/09 pt had COVID-19 pneumonia and possibly community-acquired pneumonia. continue antibiotic and probiotics. Tylenol as needed for fever. (6)hypernatremia 12/11, Sodium is 149, CTA show small pleural effusion. We will hold intravenous IV fluids, discussed with the patient's , keep patient hydration with free water. pt is Na is 152, it is likely hypovolemia and hypernatremia, add D5 1/2 NS now, discussed with nurse, keep pt hydration with free water. continue lab monitor (7) Prerenal azotemia pt had elevated BUN, sodium and chloride. keep pt hydration and add D5 1/2 NS, lab monitor (8) AMS (altered mental status) acut on chronic. pt has hx of advanced dementia. Acutely may be due to infections: Covid and community-acquired pneumonia and possible hypoxia and dehydration. treat underline infection as above, continue hydration for pt, and continue neuro check (9) Advanced dementia Assessment/Plan: On risperidone 0.5 mg po q pm. 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 Amaryl held. increased Lantus, and slide scale insulin. continue Accu-Cheks before every meal and at bedtime, continue hypoglycemia protocol (11) HTN (hypertension) Assessment/Plan: Lisinopril 10 mg p.o. daily. Hydralazine 10 mg IV every 4 hours as needed for systolic blood pressure greater than 160
[2021-12-11] MEDS: risperiDONE 1 MG TABLET PO SCH (21:32)
[2021-12-11] MEDS: cefTRIAXone 2 GM in SODIUM CHLORIDE 0.9% MINIBAG 100 ML IV SCH (21:45)
[2021-12-12] MEDS: SODIUM CHLORIDE FLUSH 0.9% 10 ML SYRINGE IVP SCH ×3 (01:18→17:05)
[2021-12-12 06:00] LABS: BASOPHILS % (AUTO) 0.1 %; EOSINOPHILS % (AUTO) 0.1 %; HCT - HEMATOCRIT 40.3 % (42.0-52.0); HGB - HEMOGLOBIN 13.1 g/dL (14.0-18.0); LYMPHOCYTES # (AUTO) 0.5 10^3/uL (1.5-3.5); LYMPHOCYTES % (AUTO) 3.5 %; MEAN CORPUSCULAR HEMOGLOBIN 28.4 pg (27.0-31.0); MEAN CORPUSCULAR HGB CONC 32.5 g/dL (32.0-36.0); MEAN CORPUSCULAR VOLUME 87.2 fL (80.0-94.0); MEAN PLATELET VOLUME 9.9 fL (7.4-11.4); MONOCYTES # (AUTO) 0.9 10^3/uL (0.0-1.0); MONOCYTES % (AUTO) 6.2 %; NEUTROPHILS # (AUTO) 12.3 10^3/uL (1.5-6.6); NEUTROPHILS % (AUTO) 88.4 %; PLT - PLATELET COUNT 299 10^3/uL (130-450); RED BLOOD COUNT 4.62 10^6/uL (4.70-6.10); RED CELL DISTRIBUTION WIDTH 13.1 % (12.0-15.0); WHITE BLOOD COUNT 13.9 x10^3/uL (4.8-10.8)
[2021-12-12 06:18] LABS: CHOL/HDL RATIO 2.8 (<5.0); CHOLESTEROL 102 mg/dL; HDL CHOLESTEROL 36 mg/dL; LDL CHOLESTEROL,CALCULATED 55 mg/dL; LDL/HDL RATIO 1.5 (<3.6); TRIGLYCERIDES 53 mg/dL; VLDL CHOLESTEROL 11 mg/dL
[2021-12-12 06:26] LABS: CALCIUM 9.1 mg/dL (8.5-10.3); POTASSIUM 3.9 mmol/L (3.5-5.0)
[2021-12-12] MEDS: INSULIN ASPART 300 UNIT/3 ML PEN SUBQ SCH ×5 (07:35→21:24)
[2021-12-12] MEDS: ENOXAPARIN 40 MG/0.4 ML SYRINGE SUBQ SCH ×2 (07:59→21:26)
[2021-12-12] MEDS: polyethylene glycoL 3350 17 GM PACKET PO SCH (07:59)
[2021-12-12] MEDS: REMDESIVIR 100MG VIAL 100 MG in SODIUM CHLORIDE 0.9% 100ML 100 ML IV SCH (07:59)
[2021-12-12] MEDS: lisinopriL 5 MG TABLET PO SCH (08:00)
[2021-12-12] MEDS: METOPROLOL TARTRATE 25 MG TABLET PO SCH ×2 (08:00→21:10)
[2021-12-12] MEDS: DEXAMETHASONE 4 MG/ML VIAL IVP SCH (08:00)
[2021-12-12] MEDS: SACCHAROMYCES BOULARDII 250 MG CAPSULE PO SCH ×2 (08:00→17:05)
[2021-12-12] MEDS: hydrALAZINE INJ 20 MG/ML VIAL IVP PRN (08:01)
[2021-12-12] MEDS: MULTIVITAMIN W/MINERALS TABLET PO SCH (08:01)
[2021-12-12] MEDS: INSULIN GLARGINE 300 UNIT/3 ML PEN SUBQ SCH ×2 (09:02→21:24)
--- NOTE | 2021-12-12 09:11 | PROVIDER PROGRESS NOTE ---
Assessment/Plan - Problem List (1) NSTEMI (non-ST elevated myocardial infarction) Assessment/Plan: 12/12 improved, Troponin is trended down to 1000 arrange, Echo study show patient had 70 to 75% EF, no regional wall abnormal mobility. We will continue metoprolol,Lipitor,Lovenox on today. 12/11 Patient's Elevated to over 2000, EKG show V4, 5, [address] depression. patient is hemodynamic stable, his troponin is trended down to 1200. We will continue Lovenox twice daily therapeutic dosage for [facility], Continue metoprolol, continue Lipitor. Order echo study. Updated patient's medical diagnosed and medical condition to patient's , And answered her questions, she agree the care plan and hope pt stay at this hospital to continue treatment. Patient had worsening pneumonia, patient had COVID-19 infection, patient had atrial fibrillation RVR. (2)Atria fibrillation with RVR 12/12 improved. HR is controlled now, continue Lovenox now. Patient Had atrial fibrillation RVR on last night, his heart rate went up 160. Now patient become sinus rhythm, heart rate is around 80. Patient was treated with intravenous Cardizem once, now we will continue metoprolol, continue Lovenox. (3) Sepsis 12/12 stable, We will continue finish the treatment course for COVID-19 and bacteriuria pneumonia 12/11 Patient is hemodynamically stable now, lactic acid is down to the normal range, patient has no fever, blood culture is negative. We will continue finish the treatment course for COVID-19 and bacteriuria pneumonia as well 12/09, improved. his lactic acid is down to 1.8, Hemodynamic is stable. Patient ate 75% of his breakfast. We will continue treat for his COVID-19 pneumonia And CAP, Continue hydration for patient. Patient's blood culture showed negative for bacteremia (4) Pneumonia due to COVID-19 virus Assessment/Plan: 12/12 pt had 97% sat on 5 liter of O2, continue finish Covid 19 treatment course. 12-11 CTA of chest reveal worsening pneumonia. We will continue finish the treatment course for COVID-19, patient had a 95% oxygen saturation on 5 L oxygen now 12/09 Patient COVID-19 test turned to be positive. pt need O2 support at morning. we will continue Covid 19 treatment for pt, continue decatron, Remdesivir, Lovenox. Tylenol as needed for fever. (5) CAP (community acquired pneumonia) Assessment/Plan: 12/11 CTA of chest reveal worsening pneumonia. We will finish the treatment course for community-acquired pneumonia, continue supplemental oxygen as needed. 12/09 pt had COVID-19 pneumonia and possibly community-acquired pneumonia. continue antibiotic and probiotics. Tylenol as needed for fever. (6)hypernatremia 12/12 improved. Na 146, continue keep pt hydration and lab monitor 12/11, Sodium is 149, CTA show small pleural effusion. We will hold intravenous IV fluids, discussed with the patient's , keep patient hydration with free water. pt is Na is 152, it is likely hypovolemia and hypernatremia, add D5 1/2 NS now, discussed with nurse, keep pt hydration with free water. continue lab monitor (7) Prerenal azotemia pt had elevated BUN, sodium and chloride. keep pt hydration and add D5 1/2 NS, lab monitor (8) AMS (altered mental status) acut on chronic. pt has hx of advanced dementia. Acutely may be due to infections: Covid and community-acquired pneumonia and possible hypoxia and dehydration. treat underline infection as above, continue hydration for pt, and continue neuro check (9) Advanced dementia Assessment/Plan: On risperidone 0.5 mg po q pm. 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 Amaryl held. increased Lantus, and slide scale insulin. continue Accu-Cheks before every meal and at bedtime, continue hypoglycemia prot ocol (11) HTN (hypertension) Assessment/Plan: 12/12 increased BP, increased Lisinopril and continue Hydralazine 10 mg IV every 4 hours as needed for systolic blood pressure greater than 160 Lisinopril 10 mg p.o. daily. Hydralazine 10 mg IV every 4 hours as needed for systolic blood pressure greater than 160 - Current Meds Current Meds: Current Medications Generic Name Dose Route Start Last Admin Trade Name Freq PRN Reason Stop Dose Admin Acetaminophen 650 mg 12/08/21 00:31 12/11/21 08:25 Acetaminophen 325 Mg Tablet PO 650 mg Q4HR PRN Administration Pain or Fever > 38C (100.4F) Dexamethasone 6 mg 12/09/21 09:00 12/12/21 08:00 Dexamethasone 4 Mg/Ml Vial IVP 6 mg DAILY ANNY Administration Enoxaparin Sodium 40 mg 12/11/21 09:00 12/12/21 07:59 Enoxaparin 40 Mg/0.4 Ml Syringe SUBQ 40 mg BID ANNY Administration Guaifenesin 100 mg 12/08/21 12:58 12/10/21 04:57 Guaifenesin 100 Mg/5 Ml Udc PO 100 mg Q6HR PRN Administration Cough Hydralazine HCl 10 mg 12/08/21 13:16 12/12/21 08:01 Hydralazine Inj 20 Mg/Ml Vial IVP 10 mg Q4H PRN Administration PER PHYSICIAN ORDER Ceftriaxone Sodium 2 gm/ 100 mls @ 200 mls/hr 12/08/21 22:00 12/11/21 23:15 Sodium Chloride IV Infused 2200 ANNY Infusion Remdesivir 100 mg/ Sodium 100 mls @ 200 mls/hr 12/10/21 09:00 12/12/21 08:32 Chloride IV 12/13/21 09:29 Infused DAILY ANNY Infusion Insulin Aspart 3 - 11 unit 12/09/21 08:00 12/12/21 07:35 Insulin Aspart 300 Unit/3 Ml Pen SUBQ Not Given 0800,1200,1700,2100 [facility] Protocol Insulin Glargine 10 unit 12/08/21 21:00 12/11/21 21:38 Insulin Glargine 300 Unit/3 Ml Pen SUBQ 10 unit QPM ANNY Administration Insulin Glargine 5 unit 12/09/21 09:00 12/12/21 09:02 Insulin Glargine 300 Unit/3 Ml Pen SUBQ 5 unit QDBREAKFAST ANNY Administration Metoprolol Tartrate 25 mg 12/11/21 01:00 12/12/21 08:00 Metoprolol Tartrate 25 Mg Tablet PO 25 mg BID ANNY Administration Multivitamins/Minerals 1 tab 12/09/21 16:00 12/12/21 08:01 Multivitamin W/Minerals Tablet PO 1 tab DAILYWM ANNY Administration Polyethylene Glycol 17 gm 12/09/21 09:00 12/12/21 07:59 Polyethylene Glycol 3350 17 Gm Packet PO 17 gm DAILY ANNY Administration Risperidone 0.5 mg 12/08/21 21:00 12/11/21 21:32 Risperidone 1 Mg Tablet PO 0.5 mg QPM ANNY Administration Saccharomyces Boulardii 500 mg 12/08/21 08:00 12/12/21 08:00 Saccharomyces Boulardii 250 Mg Capsule PO 500 mg BIDWM ANNY Administration Sodium Chloride 10 ml 12/08/21 01:00 12/12/21 08:00 Sodium Chloride Flush 0.9% 10 Ml Syringe IVP 10 ml 0100,0900,1700 ANNY Administration - Lab Result Fish Bone Diagrams: 12/12/21 05:51 12/12/21 05:51 - Additional Planning My Orders: My Active Orders 12/13/21 09:00 lisinopriL [Zestril] 20 mg PO DAILY Subjective - Subjective Patient Reports: Resting Comfortably Objective Vital Signs: Vital Signs - 24 hr 12/11/21 12/11/21 12/11/21 11:06 16:30 21:00 Temperature 36.5 C 37.4 C 36.7 C Heart Rate [ 82 69 97 Brachial] Respiratory 24 20 24 Rate Blood Pressure Blood Pressure 122/53 L 148/67 H 125/63 [Left Brachial artery] Blood Pressure [Left Radial artery] Blood Pressure [Right Brachial artery] O2 Saturation 95 97 96 12/11/21 12/12/21 12/12/21 21:32 00:41 05:12 Temperature 36.5 C Heart Rate [ 82 77 Brachial] Respiratory 20 19 Rate Blood Pressure 125/63 Blood Pressure [Left Brachial artery] Blood Pressure 110/62 [Left Radial artery] Blood Pressure 165/61 H [Right Brachial artery] O2 Saturation 99 100 12/12/21 12/12/21 12/12/21 06:57 07:34 08:00 Temperature 36.5 C Heart Rate [ 72 Brachial] Respiratory 22 Rate Blood Pressure 175/69 H Blood Pressure 170/62 H [Left Brachial artery] Blood Pressure [Left Radial artery] Blood Pressure 148/98 H 175/69 H [Right Brachial artery] O2 Saturation 97 12/12/21 12/12/21 12/12/21 08:01 08:31 09:07 Temperature Heart Rate [ 78 Brachial] Respiratory Rate Blood Pressure 175/69 H 142/78 H Blood Pressure [Left Brachial artery] Blood Pressure [Left Radial artery] Blood Pressure 142/78 H [Right Brachial artery] O2 Saturation Oxygen O2 Source Oxymask Oxygen Flow Rate 2 I&O (Last 24 Hrs): Intake and Output Totals x24h 12/10/21 12/11/21 12/12/21 23:59 23:59 23:59 Intake Total 2705 1635 175 Balance 2705 1635 175 General: Alert, No acute distress HEENT: Atraumatic Neck: Supple Lymphatic: no adenopathy Neuro: Alert, Non Focal Cardiovascular: Regular rate, Normal S1, Normal S2 Respiratory: Chest non-tender, No respiratory distress Abdomen: Normal bowel sounds, Soft Extremities: Normal pulses - Results Results: Laboratory Results WBC 13.9 x10^3/uL (4.8-10.8) H 12/12/21 05:51 RBC 4.62 10^6/uL (4.70-6.10) L 12/12/21 05:51 Hgb 13.1 g/dL (14.0-18.0) L 12/12/21 05:51 Hct 40.3 % (42.0-52.0) L 12/12/21 05:51 MCV 87.2 fL (80.0-94.0) 12/12/21 05:51 MCH 28.4 pg (27.0-31.0) 12/12/21 05:51 MCHC 32.5 g/dL (32.0-36.0) 12/12/21 05:51 RDW 13.1 % (12.0-15.0) 12/12/21 05:51 Plt Count 299 10^3/uL (130-450) 12/12/21 05:51 MPV 9.9 fL (7.4-11.4) 12/12/21 05:51 Neut # (Auto) 12.3 10^3/uL (1.5-6.6) H 12/12/21 05:51 Lymph # (Auto) 0.5 10^3/uL (1.5-3.5) L 12/12/21 05:51 [place] # (Auto) 0.9 10^3/uL (0.0-1.0) 12/12/21 05:51 Eos # (Auto) 0.0 10^3/uL (0.0-0.7) 12/12/21 05:51 Baso # (Auto) 0.0 10^3/uL (0.0-0.1) 12/12/21 05:51 Absolute Nucleated RBC 0.00 x10^3/uL 12/12/21 05:51 Nucleated RBC % 0.0 /100WBC 12/12/21 05:51 D-Dimer 867.2 ng/mL (200.0-255.0) H 12/08/21 05:00 Sodium 146 mmol/L (135-145) H 12/12/21 05:51 Potassium 3.9 mmol/L (3.5-5.0) 12/12/21 05:51 Chloride 110 mmol/L (101-111) 12/12/21 05:51 Carbon Dioxide 26 mmol/L (21-32) 12/12/21 05:51 Anion Gap 10.0 (6-13) 12/12/21 05:51 BUN 31 mg/dL (6-20) H 12/12/21 05:51 Creatinine 1.0 mg/dL (0.6-1.2) 12/12/21 05:51 Estimated GFR (MDRD) 72 (>89) L 12/12/21 05:51 Glucose 180 mg/dL (70-100) H 12/12/21 05:51 POC Whole Bld Glucose 126 mg/dL (70 - 100) H 12/12/21 07:28 Estimat Average Glucose 217 mg/dL (70-100) H 12/08/21 00:00 Hemoglobin A1c % 9.2 % (4.27-6.07) H 12/08/21 00:00 Lactic Acid 1.8 mmol/L (0.5-2.2) 12/08/21 01:55 Calcium 9.1 mg/dL (8.5-10.3) 12/12/21 05:51 Phosphorus 3.1 mg/dL (2.5-4.6) 12/08/21 05:00 Magnesium 2.4 mg/dL (1.7-2.8) 12/08/21 05:00 Total Bilirubin 1.3 mg/dL (0.2-1.0) H 12/07/21 22:00 AST 43 IU/L (10-42) H 12/07/21 22:00 ALT 38 IU/L (10-60) 12/07/21 22:00 Alkaline Phosphatase 99 IU/L (42-121) 12/07/21 22:00 Troponin I High Sens 1066.6 ng/L (2.3-19.7) H* 12/11/21 18:14 Total Protein 8.1 g/dL (6.7-8.2) 12/07/21 22:00 Albumin 3.3 g/dL (3.2-5.5) 12/07/21 22:00 Globulin 4.8 g/dL (2.1-4.2) H 12/07/21 22:00 Albumin/Globulin Ratio 0.7 (1.0-2.2) L 12/07/21 22:00 Triglycerides 53 mg/dL (-149) 12/12/21 05:51 Cholesterol 102 mg/dL (-199) 12/12/21 05:51 LDL Cholesterol, Calc 55 mg/dL (-129) 12/12/21 05:51 VLDL Cholesterol 11 mg/dL 12/12/21 05:51 HDL Cholesterol 36 mg/dL (60-) L 12/12/21 05:51 LDL/HDL Ratio 1.5 (<3.6) 12/12/21 05:51 Cholesterol/HDL Ratio 2.8 (<5.0) 12/12/21 05:51 Lipase 26 U/L (22-51) 12/07/21 22:00 25-OH Vitamin D Total 64 ng/mL (30-100) 12/07/21 22:00 Urine Color YELLOW 12/08/21 00:30 Urine Clarity CLEAR (CLEAR) 12/08/21 00:30 Urine pH 5.0 PH (5.0-7.5) 12/08/21 00:30 Ur Specific [place] 1.025 (1.002-1.030) 12/08/21 00:30 Urine Protein 100 mg/dL (NEGATIVE) H 12/08/21 00:30 Urine Glucose (UA) >=1000 mg/dL (NEGATIVE) H 12/08/21 00:30 Urine Ketones 15 mg/dL (NEGATIVE) H 12/08/21 00:30 Urine Occult Blood MODERATE (NEGATIVE) H 12/08/21 00:30 Urine Nitrite NEGATIVE (NEGATIVE) 12/08/21 00:30 Urine Bilirubin NEGATIVE (NEGATIVE) 12/08/21 00:30 Urine Urobilinogen 0.2 (NORMAL) E.U./dL (NORMAL) 12/08/21 00:30 Ur Leukocyte Esterase NEGATIVE (NEGATIVE) 12/08/21 00:30 Urine RBC 0-5 /HPF (0-5) 12/08/21 00:30 Urine WBC 0-3 /HPF (0-3) 12/08/21 00:30 Ur Squamous Epith Cells RARE Squamous (<= Few) 12/08/21 00:30 Urine Bacteria Rare /HPF (None Seen) 12/08/21 00:30 Ur Microscopic Review INDICATED 12/08/21 00:30 Urine Culture Comments NOT INDICATED 12/08/21 00:30 - Procedures Procedures: Procedures REPLACEMENT OF LEFT LENS WITH SYNTH SUB, PERC APPROACH (03/30/19) REPLACEMENT OF RIGHT LENS WITH SYNTH SUB, PERC APPROACH (01/05/19) Sepsis Event Note (H) - Evaluation Current Stage of Sepsis: Sepsis - Sepsis Criteria Sepsis Criteria: Recorded Heart Rate greater than 90 bpm, Respiratory: Increasing oxygen requirements, CASE MANAGEMENT SOCIAL WORKER: altered consciousness (unrelated to primary neuro pathology), Metabolic: lactate > 2 mmol/L ABX Reporting Has patient been on IV antibiotics over the past 48 hours?: Yes Current Medications - Current Medications Current Medications: Active Medications Acetaminophen (Acetaminophen 325 Mg Tablet) 650 mg PO Q4HR PRN PRN Reason: Pain or Fever > 38C (100.4F) Last Admin: 12/11/21 08:25 Dose: 650 mg Atorvastatin Calcium (Atorvastatin 40 Mg Tablet) 40 mg PO QPM [facility] Dexamethasone (Dexamethasone 4 Mg/Ml Vial) 6 mg IVP DAILY [facility] Last Admin: 12/12/21 08:00 Dose: 6 mg Enoxaparin Sodium (Enoxaparin 40 Mg/0.4 Ml Syringe) 40 mg SUBQ BID [facility] Last Admin: 12/12/21 07:59 Dose: 40 mg Guaifenesin (Guaifenesin 100 Mg/5 Ml Udc) 100 mg PO Q6HR PRN PRN Reason: Cough Last Admin: 12/10/21 04:57 Dose: 100 mg Hydralazine HCl (Hydralazine Inj 20 Mg/Ml Vial) 10 mg IVP Q4H PRN PRN Reason: PER PHYSICIAN ORDER Last Admin: 12/12/21 08:01 Dose: 10 mg Ceftriaxone Sodium 2 gm/ (Sodium Chloride) 100 mls @ 200 mls/hr IV 2200 ANNY Last Infusion: 12/11/21 23:15 Dose: Infused Remdesivir 100 mg/ Sodium (Chloride) 100 mls @ 200 mls/hr IV DAILY [facility] Stop: 12/13/21 09:29 Last Infusion: 12/12/21 08:32 Dose: Infused Insulin Aspart (Insulin Aspart 300 Unit/3 Ml Pen) 3 - 11 unit SUBQ 0800,1200,1700,2100 [facility]; Protocol Last Admin: 12/12/21 07:35 Dose: Not Given Insulin Glargine (Insulin Glargine 300 Unit/3 Ml Pen) 10 unit SUBQ QPM [facility] Last Admin: 12/11/21 21:38 Dose: 10 unit Insulin Glargine (Insulin Glargine 300 Unit/3 Ml Pen) 5 unit SUBQ QDBREAKFAST [facility] Last Admin: 12/12/21 09:02 Dose: 5 unit Lisinopril (Lisinopril 20 Mg Tablet) 20 mg PO DAILY [facility] Metoprolol Tartrate (Metoprolol Tartrate 25 Mg Tablet) 25 mg PO BID [facility] Last Admin: 12/12/21 08:00 Dose: 25 mg Multivitamins/Minerals (Multivitamin W/Minerals Tablet) 1 tab PO DAILYWM [facility] Last Admin: 12/12/21 08:01 Dose: 1 tab Ondansetron HCl (Ondansetron 4 Mg/2 Ml Vial) 4 mg IVP Q6HR PRN PRN Reason: Nausea / Vomiting Polyethylene Glycol (Polyethylene Glycol 3350 17 Gm Packet) 17 gm PO DAILY [facility] Last Admin: 12/12/21 07:59 Dose: 17 gm Risperidone (Risperidone 1 Mg Tablet) 0.5 mg PO QPM [facility] Last Admin: 12/11/21 21:32 Dose: 0.5 mg Saccharomyces Boulardii (Saccharomyces Boulardii 250 Mg Capsule) 500 mg PO BIDWM [facility] Last Admin: 12/12/21 08:00 Dose: 500 mg Sodium Chloride (Sodium Chloride Flush 0.9% 10 Ml Syringe) 10 ml IVP PRN PRN PRN Reason: NEEDED PER PROVIDER ORDERS Sodium Chloride (Sodium Chloride Flush 0.9% 10 Ml Syringe) 10 ml IVP 0100,0900,1700 [facility] Last Admin: 12/12/21 08:00 Dose: 10 ml Glimepiride [Amaryl] 4 mg PO DAILYWM 12/07/21 Lisinopril [Zestril] 10 mg PO DAILY 12/07/21 Rosuvastatin Calcium [Crestor] 10 mg PO QPM 12/07/21 risperiDONE [Risperdal] 0.25 mg PO BID 12/07/21
[2021-12-12] MEDS: guaiFENesin 100 MG/5 ML UDC PO PRN (14:00)
[2021-12-12] MEDS ORDERED: INSULIN ASPART 300 UNIT/3 ML PEN SUBQ ONE (16:58)
[2021-12-12] MEDS: risperiDONE 1 MG TABLET PO SCH (21:23)
[2021-12-12] MEDS: ATORVASTATIN 40 MG TABLET PO SCH (21:23)
[2021-12-12] MEDS: cefTRIAXone 2 GM in SODIUM CHLORIDE 0.9% MINIBAG 100 ML IV SCH (21:37)
[2021-12-13] MEDS: SODIUM CHLORIDE FLUSH 0.9% 10 ML SYRINGE IVP SCH ×3 (02:14→17:12)
--- NOTE | 2021-12-13 07:28 | PROVIDER PROGRESS NOTE ---
Subjective - Prog Note Date Prog Note Date: 12/13/21 - Subjective Pt reports feeling: No change Subjective: Pt appears to be lying in bed comfortably. present at bedside and interpreting as needed, Pt had no complaints. She feels he may be weaker than his previous baseline given he's been sick for 2 weeks but otherwise had no concerns. He is eating meals when she is present to help him. He denied pain or shortness of breath at bedside. Objective - Vital Signs/Intake & Output Reviewed Vital Signs: Yes Vital Signs: Vital Signs x48h Temp Pulse Pulse Resp BP BP Pulse Ox 12/13/21 05:23 36.4 C L 90 18 160/81 H 100 12/12/21 23:38 36.7 C 93 18 114/57 L 96 Intake & Output: Intake & Output 12/10/21 12/11/21 12/12/21 12/13/21 23:59 23:59 23:59 23:59 Intake Total 2705 1635 775 Balance 2705 1635 775 - Objective General Appearance: positive: No acute distress, Alert Eyes Bilateral: positive: Normal inspection, PERRL, No lid inflammation, Conjunctivae nml, No scleral icterus ENT: positive: No signs of dehydration Respiratory: positive: Chest non-tender, No respiratory distress, Other (crackles in bilateral bases) Cardiovascular: positive: Regular rate & rhythm, No murmur Peripheral Pulses: 2+ Dorsalis pedis (R), 2+ Dorsalis pedis (L) Abdomen: positive: Non-tender, No organomegaly, Nml bowel sounds, No distention Skin: positive: Color nml Extremities: positive: Non-tender, Full ROM, Nml appearance, No pedal edema Neurologic/Psychiatric: positive: Other (Per , who is translating, he keeps forgetting he is in the hospital and wants to go home. Awake and alert, oriented to self and that he is sick. Also oriented to his . Follows commands.) - Lab Results Fish Bones: 12/13/21 08:00 12/13/21 08:00 Other Labs: Lab Results x24hrs 12/12/21 12/12/21 12/12/21 Range/Units 20:55 16:55 11:06 POC Whole Bld Glucose 295 H 418 H 236 H (70 - 100) mg/dL 12/12/21 Range/Units 07:28 POC Whole Bld Glucose 126 H (70 - 100) mg/dL ABX Reporting Has patient been on IV antibiotics over the past 48 hours?: Yes Sepsis Event Note (H) - Evaluation Current Stage of Sepsis: Sepsis - Sepsis Criteria Sepsis Criteria: Recorded Heart Rate greater than 90 bpm, Respiratory: Inc reasing oxygen requirements, BUTT MAKER: altered consciousness (unrelated to primary neuro pathology), Metabolic: lactate > 2 mmol/L Assessment/Plan - Problem List (1) NSTEMI (non-ST elevated myocardial infarction) Impression: Improving. Troponins continue to trend down, now in the 200 range. Prior ECHO study revealed EF 70-75%, no regional wall abnormality. Metoprolol, Lipitor, and Lovenox continued. Denies chest pain. On 12/11 his troponins increased to over [address] depression in leads V4,5,6 on EKG. He has remained hemodynamically stable. Troponins have been trending down since. Lovenox is ordered BID for therapeutic OK dosage and an ECHO was obtained. (2) Atrial fibrillation with RVR Impression: Improved. HR controlled 50s-90s depending on when he is sleeping or awake. Tele strips showing sinus rhythm. Metoprolol and Lovenox continued. Noted to have atrial fibrillation with RVR 12/11 with HR to 160. Has converted back to sinus rhythm after being treated with IV Cardizem once. (3) Sepsis Impression: Stable. WBC still elevated 11-13 over the past 3 days, 12.4 today. Neutrophils trending down. Has been afebrile. Started on Rocephin 12/08 for CAP and bacterial pneumonia, noted on chest CTA 12/10 to have bilateral pneumonia, small right effusion and trace left pleural effusion. Blood cultures negative. Will continue to monitor labs and vitals, plan for 7 day course of antibiotics. Qualifiers: Sepsis type: sepsis due to unspecified organism Sepsis acute organ dysfunction status: unspecified Qualified Code(s): A41.9 - Sepsis, unspecified organism (4) Pneumonia due to COVID-19 virus Impression: COVID positive on 12/02. Has been requiring supplemental oxygen, started on Remdesvir and Decadron in addition to antibiotics for worsening pneumonia 12/08- 12/09. Completed treatment with Remdesvir, will plan to stop antibiotics after 7 day course. Still requiring supplemental oxygen, 3-4L NC but when sleeping requires the oxymask as nursing notes he pulls the nasal cannula out of his nose. (5) CAP (community acquired pneumonia) Impression: Per chart review patient was felt to have COVID pneumonia and community acquired pneumonia. Antibiotics and probiotics started on 12/08. CTA chest revealed worsening pneumonia 12/11. WBC remains stable at 12.4, likely also affected by the Decadron. will plan for a 7 day course of treatment. Still requiring supplemental oxygen. Qualifiers: Laterality: unspecified laterality Qualified Code(s): J18.9 - Pneumonia, unspecified organism (6) Hypoxia Impression: Does not use oxygen at home. Has required supplemental oxygen since admission, likely related to his COVID pneumonia and possible community acquired pneumonia. He was started on Remdesivir, which he has finished, and Decadron and supplemental oxygen. Currently saturating 92-100% on nasal cannula. Nursing reports he requires use of the oxymask at night as he pulls off the nasal cannula when he is sleeping and desaturates. May need to go home with supplemental oxygen but will continue to monitor and supplement as needed. (7) Prerenal azotemia Impression: Stable. Has had elevated BUN but this is likely related to his NSTEMI as well. Chloride and sodium have normalized. Continue to encourage hydration and monitor labs. (8) Diabetes mellitus type 2 in nonobese Impression: Hemoglobin A1c 9.2. Currently on Lantus and SSI. BGs have ranged 120s-418. Some of this is likely related to his Decadron treatment but if remains elevated tomorrow I will increase his Lantus with meals. Continue current doses of insulin with sliding scale and blood glucose checks ac/hs. Continue hypoglycemia protocol. (9) HTN (hypertension) Impression: He has had somewhat labile blood pressures in the last 24 hours, with SBP ranging 111-160 and DBP ranging 48-81. He received one dose of hydralazine for SBP 160. Has not reported chest pain, dizziness, or headache. Continue Lisinopril with PRN Hydralazine. The Lisinopril was increased yesterday, I will give it another 24 hours or so before further titrating meds if needed. Qualifiers: Hypertension type: primary hypertension Qualified Code(s): I10 - Essential (primary) hypertension (10) AMS (altered mental status) Impression: Acute on chronic. Stable. He has a hx of advanced dementia though he was able to get around with a walker and cane independently at home per , even doing their laundry. Today he has not been oriented to place but is easily reoriented per . She feels he may be close to his baseline. Acutely may be due to p neumonia and possibly infection and dehydration. Also likely related to his dementia. Continue supportive care with antibiotics and hydration as well as neuro checks as able (he is Tagalog speakin and prefers to answer his when she asks questions). Qualifiers: Altered mental status type: delirium Qualified Code(s): R41.0 - Disorientation, unspecified (11) Advanced dementia Impression: Continue home Risperidone daily. Per his he is able to ambulate with a walker longer distances and with a cane around the house. He was also doing their laundry up until right before he got sick. She is concerned he may be getting weaker since he has been sick so I have ordered a PT evaluation to assess. (12) Hypernatremia Impression: Resolved. Na 145 today. Continue to encourage hydration and monitor labs. Admission sodiums were 152-153, likely related to hypovolemia. He was rehydrated with D5 1/2 NS which was stopped on 12/11 and has since been staying hydrated orally.
[2021-12-13 08:16] LABS: BASOPHILS % (AUTO) 0.1 %; EOSINOPHILS % (AUTO) 0.2 %; HCT - HEMATOCRIT 37.3 % (42.0-52.0); HGB - HEMOGLOBIN 12.3 g/dL (14.0-18.0); LYMPHOCYTES # (AUTO) 0.5 10^3/uL (1.5-3.5); MEAN CORPUSCULAR HEMOGLOBIN 28.8 pg (27.0-31.0); MEAN CORPUSCULAR VOLUME 87.4 fL (80.0-94.0); MEAN PLATELET VOLUME 10.1 fL (7.4-11.4); MONOCYTES # (AUTO) 0.9 10^3/uL (0.0-1.0); MONOCYTES % (AUTO) 7.4 %; NEUTROPHILS # (AUTO) 10.8 10^3/uL (1.5-6.6); PLT - PLATELET COUNT 297 10^3/uL (130-450); RED BLOOD COUNT 4.27 10^6/uL (4.70-6.10); WHITE BLOOD COUNT 12.4 x10^3/uL (4.8-10.8)
[2021-12-13 08:22] LABS: CALCIUM 8.9 mg/dL (8.5-10.3); POTASSIUM 3.8 mmol/L (3.5-5.0)
[2021-12-13] MEDS: SACCHAROMYCES BOULARDII 250 MG CAPSULE PO SCH ×2 (08:48→17:11)
[2021-12-13] MEDS: polyethylene glycoL 3350 17 GM PACKET PO SCH (08:49)
[2021-12-13] MEDS: MULTIVITAMIN W/MINERALS TABLET PO SCH (08:49)
[2021-12-13] MEDS: lisinopriL 20 MG TABLET PO SCH (08:49)
[2021-12-13] MEDS: DEXAMETHASONE 4 MG/ML VIAL IVP SCH (08:49)
[2021-12-13] MEDS: METOPROLOL TARTRATE 25 MG TABLET PO SCH ×2 (08:49→20:36)
[2021-12-13] MEDS: ENOXAPARIN 40 MG/0.4 ML SYRINGE SUBQ SCH ×2 (08:50→20:37)
[2021-12-13] MEDS: REMDESIVIR 100MG VIAL 100 MG in SODIUM CHLORIDE 0.9% 100ML 100 ML IV SCH (08:50)
[2021-12-13] MEDS: INSULIN ASPART 300 UNIT/3 ML PEN SUBQ SCH ×7 (09:55→20:58)
[2021-12-13] MEDS: INSULIN GLARGINE 300 UNIT/3 ML PEN SUBQ SCH (09:55)
[2021-12-13] MEDS: guaiFENesin 100 MG/5 ML UDC PO PRN (17:11)
[2021-12-13] MEDS: SODIUM CHLORIDE FLUSH 0.9% 10 ML SYRINGE IVP PRN ×2 (17:13→20:43)
[2021-12-13] MEDS: risperiDONE 1 MG TABLET PO SCH (20:37)
[2021-12-13] MEDS: ATORVASTATIN 40 MG TABLET PO SCH (20:37)
[2021-12-13] MEDS: MIN OIL/DIMETHICON/COCONUT OIL 92 GM TUBE TOP PRN (20:39)
[2021-12-13] MEDS: cefTRIAXone 2 GM in SODIUM CHLORIDE 0.9% MINIBAG 100 ML IV SCH (20:39)
[2021-12-13] MEDS ORDERED: INSULIN GLARGINE 300 UNIT/3 ML PEN SUBQ SCH (21:00)
[2021-12-14 05:50] LABS: BASOPHILS % (AUTO) 0.2 %; EOSINOPHILS % (AUTO) 0.1 %; HCT - HEMATOCRIT 36.2 % (42.0-52.0); HGB - HEMOGLOBIN 11.8 g/dL (14.0-18.0); LYMPHOCYTES # (AUTO) 0.6 10^3/uL (1.5-3.5); LYMPHOCYTES % (AUTO) 4.9 %; MEAN CORPUSCULAR HEMOGLOBIN 28.4 pg (27.0-31.0); MEAN CORPUSCULAR HGB CONC 32.6 g/dL (32.0-36.0); MEAN PLATELET VOLUME 10.1 fL (7.4-11.4); MONOCYTES # (AUTO) 0.9 10^3/uL (0.0-1.0); NEUTROPHILS # (AUTO) 9.7 10^3/uL (1.5-6.6); NEUTROPHILS % (AUTO) 85.1 %; PLT - PLATELET COUNT 311 10^3/uL (130-450); RED BLOOD COUNT 4.16 10^6/uL (4.70-6.10); RED CELL DISTRIBUTION WIDTH 13.1 % (12.0-15.0); WHITE BLOOD COUNT 11.3 x10^3/uL (4.8-10.8)
[2021-12-14 06:07] LABS: POTASSIUM 3.7 mmol/L (3.5-5.0)
[2021-12-14] MEDS: SODIUM CHLORIDE FLUSH 0.9% 10 ML SYRINGE IVP SCH ×3 (06:40→15:49)
[2021-12-14] MEDS: INSULIN ASPART 300 UNIT/3 ML PEN SUBQ SCH ×7 (08:00→20:40)
[2021-12-14] MEDS: DEXAMETHASONE 4 MG/ML VIAL IVP SCH (08:11)
[2021-12-14] MEDS: METOPROLOL TARTRATE 25 MG TABLET PO SCH ×2 (08:11→20:32)
[2021-12-14] MEDS: MULTIVITAMIN W/MINERALS TABLET PO SCH (08:12)
[2021-12-14] MEDS: lisinopriL 20 MG TABLET PO SCH (08:12)
[2021-12-14] MEDS: SACCHAROMYCES BOULARDII 250 MG CAPSULE PO SCH ×2 (08:12→20:32)
[2021-12-14] MEDS: ENOXAPARIN 40 MG/0.4 ML SYRINGE SUBQ SCH ×2 (08:12→20:35)
[2021-12-14] MEDS: polyethylene glycoL 3350 17 GM PACKET PO SCH (08:12)
[2021-12-14] MEDS: guaiFENesin 100 MG/5 ML UDC PO PRN ×2 (08:20→21:00)
--- NOTE | 2021-12-14 11:15 | PROVIDER PROGRESS NOTE ---
Subjective - Prog Note Date Prog Note Date: 12/14/21 - Subjective Pt reports feeling: Improved Subjective: Pt appears improved this morning, more awake and alert. Hard of hearing, exam difficult but reports his confusion appears to be at his baseline. He is sitting up and eating, no cough or concern for aspiration. Does not appear to have pain, dyspnea or discomfort. Objective - Vital Signs/Intake & Output Reviewed Vital Signs: Yes Vital Signs: Vital Signs x48h Temp Pulse Pulse Resp BP BP BP 12/14/21 10:53 75 19 12/14/21 08:11 120/97 H 12/14/21 07:49 36.4 C L 82 18 120/97 H 12/14/21 04:00 36.7 C 61 20 136/53 H Pulse Ox 12/14/21 10:53 96 12/14/21 08:11 12/14/21 07:49 92 12/14/21 04:00 95 Intake & Output: Intake & Output 12/11/21 12/12/21 12/13/21 12/14/21 23:59 23:59 23:59 23:59 Intake Total 1635 775 730.000 120 Balance 1635 775 730.000 120 - Objective General Appearance: positive: No acute distress, Alert Eyes Bilateral: positive: Normal inspection, No lid inflammation, No scleral icterus ENT: positive: No signs of dehydration Neck: positive: Nml inspection Respiratory: positive: Chest non-tender, No respiratory distress Cardiovascular: positive: Regular rate & rhythm, No murmur Peripheral Pulses: 2+ Dorsalis pedis (R), 2+ Dorsalis pedis (L) Abdomen: positive: Non-tender, No organomegaly, Nml bowel sounds, No distention Skin: positive: Color nml, Warm, Dry Extremities: positive: Non-tender, Nml appearance, No pedal edema Neurologic/Psychiatric: positive: Other (oriented to self, follows commands from when he can hear them) - Lab Results Fish Bones: 12/14/21 05:38 12/14/21 05:38 Other Labs: Lab Results x24hrs 12/14/21 12/14/21 12/14/21 Range/Units 08:47 08:18 07:57 WBC (4.8-10.8) x10^3/uL RBC (4.70-6.10) 10^6/uL Hgb (14.0-18.0) g/dL Hct (42.0-52.0) % MCV (80.0-94.0) fL MCH (27.0-31.0) pg MCHC (32.0-36.0) g/dL RDW (12.0-15.0) % Plt Count (130-450) 10^3/uL MPV (7.4-11.4) fL Neut # (Auto) (1.5-6.6) 10^3/uL Lymph # (Auto) (1.5-3.5) 10^3/uL [place] # (Auto) (0.0-1.0) 10^3/uL Eos # (Auto) (0.0-0.7) 10^3/uL Baso # (Auto) (0.0-0.1) 10^3/uL Absolute Nucleated RBC x10^3/uL Nucleated RBC % /100WBC Sodium (135-145) mmol/L Potassium (3.5-5.0) mmol/L Chloride (101-111) mmol/L Carbon Dioxide (21-32) mmol/L Anion Gap (6-13) BUN (6-20) mg/dL Creatinine (0.6-1.2) mg/dL Estimated GFR (MDRD) (>89) Glucose (70-100) mg/dL POC Whole Bld Glucose 157 H 59 L* 42 L* (70 - 100) mg/dL Calcium (8.5-10.3) mg/dL 12/14/21 12/14/21 12/14/21 Range/Units 07:39 05:38 05:38 WBC 11.3 H (4.8-10.8) x10^3/uL RBC 4.16 L (4.70-6.10) 10^6/uL Hgb 11.8 L (14.0-18.0) g/dL Hct 36.2 L (42.0-52.0) % MCV 87.0 (80.0-94.0) fL MCH 28.4 (27.0-31.0) pg MCHC 32.6 (32.0-36.0) g/dL RDW 13.1 (12.0-15.0) % Plt Count 311 (130-450) 10^3/uL MPV 10.1 (7.4-11.4) fL Neut # (Auto) 9.7 H (1.5-6.6) 10^3/uL Lymph # (Auto) 0.6 L (1.5-3.5) 10^3/uL [place] # (Auto) 0.9 (0.0-1.0) 10^3/uL Eos # (Auto) 0.0 (0.0-0.7) 10^3/uL Baso # (Auto) 0.0 (0.0-0.1) 10^3/uL Absolute Nucleated RBC 0.00 x10^3/uL Nucleated RBC % 0.0 /100WBC Sodium 148 H (135-145) mmol/L Potassium 3.7 (3.5-5.0) mmol/L Chloride 109 (101-111) mmol/L Carbon Dioxide 29 (21-32) mmol/L Anion Gap 10.0 (6-13) BUN 41 H (6-20) mg/dL Creatinine 1.0 (0.6-1.2) mg/dL Estimated GFR (MDRD) 72 L (>89) Glucose 69 L (70-100) mg/dL POC Whole Bld Glucose 53 L* (70 - 100) mg/dL Calcium 9.0 (8.5-10.3) mg/dL 12/13/21 12/13/21 12/13/21 Range/Units 20:57 16:47 11:29 WBC (4.8-10.8) x10^3/uL RBC (4.70-6.10) 10^6/uL Hgb (14.0-18.0) g/dL Hct (42.0-52.0) % MCV (80.0-94.0) fL MCH (27.0-31.0) pg MCHC (32.0-36.0) g/dL RDW (12.0-15.0) % Plt Count (130-450) 10^3/uL MPV (7.4-11.4) fL Neut # (Auto) (1.5-6.6) 10^3/uL Lymph # (Auto) (1.5-3.5) 10^3/uL [place] # (Auto) (0.0-1.0) 10^3/uL Eos # (Auto) (0.0-0.7) 10^3/uL Baso # (Auto) (0.0-0.1) 10^3/uL Absolute Nucleated RBC x10^3/uL Nucleated RBC % /100WBC Sodium (135-145) mmol/L Potassium (3.5-5.0) mmol/L Chloride (101-111) mmol/L Carbon Dioxide (21-32) mmol/L Anion Gap (6-13) BUN (6-20) mg/dL Creatinine (0.6-1.2) mg/dL Estimated GFR (MDRD) (>89) Glucose (70-100) mg/dL POC Whole Bld Glucose 198 H 307 H 318 H (70 - 100) mg/dL Calcium (8.5-10.3) mg/dL ABX Reporting Has patient been on IV antibiotics over the past 48 hours?: Yes Sepsis Event Note (H) - Evaluation Current Stage of Sepsis: Resolved - Sepsis Criteria Sepsis Criteria: Recorded Heart Rate greater than 90 bpm, Respiratory: Increasing oxygen requirements, [employer]: altered consciousness (unrelated to primary neuro pathology), Metabolic: lactate > 2 mmol/L Assessment/Plan - Problem List (1) NSTEMI (non-ST elevated myocardial infarction) Impression: Improving. Troponins continue to trend down, now in the 200 range. Prior ECHO study revealed EF 70-75%, no regional wall abnormality. Metoprolol, Lipitor, and Lovenox continued. Denies chest pain. On 12/11 his troponins increased to over [address] depression in leads V4,5,6 on EKG. He has remained hemodynamically stable. Troponins have been trending down since. Lovenox is ordered BID for therapeutic CT dosage and an ECHO was obtained. (2) Atrial fibrillation with RVR Impression: Improved. HR controlled 60s-80s. Tele strips showing sinus rhythm. Metoprolol and Lovenox continued. Noted to have atrial fibrillation with RVR 12/11 with HR to 160. Has converted back to sinus rhythm after being treated with IV Cardizem once. (3) Sepsis Impression: Resolved. WBC still elevated 11-13 over the past 3 days, 11.3 today and down- trending. Neutrophils trending down. Has been afebrile. Started on Rocephin 2/14 for CAP and bacterial pneumonia, noted on chest CTA 12/10 to have bilateral pneumonia, small right effusion and trace left pleural effusion. Blood cultures negative. He is now on room air and lungs are sounding clearer, will stop the antibiotics after his dose tonight for a total 7 day course. Qualifiers: Sepsis type: sepsis due to unspecified organism Sepsis acute organ dysfunction status: unspecified Qualified Code(s): A41.9 - Sepsis, unspecified organism (4) Pneumonia due to COVID-19 virus Impression: Improving. Lungs are sounding more clear and he is now on room air, afebrile. WBC downtrending. Will stop antibiotics after dose tonight for a total 7 day course. Decadron stopped after today's dose now that he is on room air. COVID positive on 12/02. Has been requiring supplemental oxygen, started on Remdesvir and Decadron in addition to antibiotics for worsening pneumonia 12/08- 12/09. Completed treatment with Remdesvir and received 6th dose 12/14, stopped then. (5) CAP (community acquired pneumonia) Impression: Per chart review patient was felt to have COVID pneumonia and community acquired pneumonia. Antibiotics and probiotics started on 12/08. CTA chest revealed worsening pneumonia 12/11. WBC remains stable and downtrending at 11.3, likely also affected by the Decadron. He is now on room air and his lungs are sounding more clear, will stop his antibiotics after tonight's dose for a total course of 7 days. Qualifiers: Laterality: unspecified laterality Qualified Code(s): J18.9 - Pneumonia, unspecified organism (6) Hypoxia Impression: Resolved, now satting mid-90s on room air. Denies dyspnea. Has required supplemental oxygen from admission until today due to dyspnea and low saturations, likely related to his COVID pneumonia and possible community acquired pneumonia. He completed treatment of Remdesivir and now that he is on room air will stop the Decadron (he received 6 doses). will continue to monitor. (7) Prerenal azotemia Impression: Stable. Has had elevated BUN but this is likely related to his NSTEMI as well. Chloride and sodium had normalized yesterday however his sodium is again elevated today. He has a free water deficit of 1.6L. Continue to encourage hydration and monitor labs, nursing order placed to have him drink 200mL of water over every 4 hours. (8) Diabetes mellitus type 2 in nonobese Impression: Hemoglobin A1c 9.2. Currently on Lantus and SSI. BGs have ranged 120s-418. Some of this is likely related to his Decadron treatment but given he received 32 units of correctional insulin over 24 hours yesterday his Lantus was increased to 30units last night. This morning he was hypoglycemic to 42. He was awake and alert so nursing gave his scheduled Decadron as well as juice and he eventually came back up to 157. Lantus was decreased back to 20 units in the evening. Continue current doses of insulin with sliding scale and blood glucose checks ac/hs. Continue hypoglycemia protocol. (9) HTN (hypertension) Impression: Stable. Blood pressures have been better controlled over the last 24 hours, ranging 105-136 systolic to 53-97 diastolic. Lisinopril continued. Qualifiers: Hypertension type: primary hypertension Qualified Code(s): I10 - Essential (primary) hypertension (10) AMS (altered mental status) Impression: Improved. [place] on admission to have acute on chronic altered mental status. The AMS was felt due to his pneumonia as well as his dementia. Today his feels he is back to his baseline confusion. Continue supportive care. Neuro checks discontinued. Of note, he is Tagalog speaking and very hard of hearing, so his or a telephone american sign language interpreter should be used at loud volumes to speak with him. Qualifiers: Altered mental status type: delirium Qualified Code(s): R41.0 - Disorientation, unspecified (11) Advanced dementia Impression: Stable. Continue home Risperidone daily. He was seen by PT today and will likely require placement at least for short term as he is weak and will need more assistance and supervision than his is currently able to provide (she works outside the home). Per his he is able to ambulate with a walker longer distances and with a cane around the house. He was also doing their laundry up until right before he got sick. (12) Hypernatremia Impression: Na is increased again today to 148. It was 145 yesterday. A free water deficit of 1.7L was calculated, so will have nursing encourage 200mL of water every 4 hours to try and cover the deficit and bring his sodium back down. Admission sodiums were 152-153, likely related to hypovolemia. He was rehydrated with D5 1/2 NS which was stopped on 12/11 and has since been staying hydrated orally.
[2021-12-14] MEDS: SODIUM CHLORIDE FLUSH 0.9% 10 ML SYRINGE IVP PRN ×2 (15:49→20:44)
[2021-12-14] MEDS: risperiDONE 1 MG TABLET PO SCH (20:34)
[2021-12-14] MEDS: ATORVASTATIN 40 MG TABLET PO SCH (20:35)
[2021-12-14] MEDS: MIN OIL/DIMETHICON/COCONUT OIL 92 GM TUBE TOP PRN (20:36)
[2021-12-14] MEDS: cefTRIAXone 2 GM in SODIUM CHLORIDE 0.9% MINIBAG 100 ML IV SCH (20:44)
[2021-12-14] MEDS ORDERED: INSULIN GLARGINE 300 UNIT/3 ML PEN SUBQ SCH (21:00)
[2021-12-14] MEDS ORDERED: traZODone 50 MG TABLET PO PRN (22:50)
[2021-12-14] MEDS ORDERED: diphenhydrAMINE INJ 50 MG/ML VIAL IVP STA (22:50)
[2021-12-15] MEDS: SODIUM CHLORIDE FLUSH 0.9% 10 ML SYRINGE IVP SCH ×3 (00:15→18:53)
[2021-12-15] MEDS ORDERED: diphenhydrAMINE INJ 50 MG/ML VIAL IVP STA (02:01)
[2021-12-15 04:53] LABS: BASOPHILS % (AUTO) 0.2 %; HCT - HEMATOCRIT 40.8 % (42.0-52.0); HGB - HEMOGLOBIN 13.3 g/dL (14.0-18.0); LYMPHOCYTES # (AUTO) 0.6 10^3/uL (1.5-3.5); LYMPHOCYTES % (AUTO) 4.3 %; MEAN CORPUSCULAR HEMOGLOBIN 28.5 pg (27.0-31.0); MEAN CORPUSCULAR HGB CONC 32.6 g/dL (32.0-36.0); MEAN CORPUSCULAR VOLUME 87.6 fL (80.0-94.0); MONOCYTES # (AUTO) 1.4 10^3/uL (0.0-1.0); MONOCYTES % (AUTO) 9.9 %; NEUTROPHILS # (AUTO) 11.5 10^3/uL (1.5-6.6); NEUTROPHILS % (AUTO) 82.3 %; PLT - PLATELET COUNT 387 10^3/uL (130-450); RED BLOOD COUNT 4.66 10^6/uL (4.70-6.10); RED CELL DISTRIBUTION WIDTH 13.1 % (12.0-15.0)
[2021-12-15 05:02] LABS: CALCIUM 8.9 mg/dL (8.5-10.3); POTASSIUM 3.3 mmol/L (3.5-5.0)
[2021-12-15] MEDS: INSULIN ASPART 300 UNIT/3 ML PEN SUBQ SCH ×6 (07:45→21:06)
[2021-12-15] MEDS ORDERED: POTASSIUM CHLORIDE 20 MEQ/15 ML UDC PO ONE (08:00)
[2021-12-15] MEDS ORDERED: INSULIN ASPART 300 UNIT/3 ML PEN SUBQ SCH (08:00)
[2021-12-15] MEDS: SACCHAROMYCES BOULARDII 250 MG CAPSULE PO SCH ×2 (08:57→18:54)
[2021-12-15] MEDS: polyethylene glycoL 3350 17 GM PACKET PO SCH (08:57)
[2021-12-15] MEDS: MULTIVITAMIN W/MINERALS TABLET PO SCH (08:57)
[2021-12-15] MEDS: METOPROLOL TARTRATE 25 MG TABLET PO SCH ×2 (08:58→21:08)
[2021-12-15] MEDS: ENOXAPARIN 40 MG/0.4 ML SYRINGE SUBQ SCH (08:58)
[2021-12-15] MEDS: lisinopriL 20 MG TABLET PO SCH (08:58)
--- NOTE | 2021-12-15 10:27 | PROVIDER PROGRESS NOTE ---
Subjective - Prog Note Date Prog Note Date: 12/15/21 - Subjective Subjective: History is limited due to his dementia and he is quite hard of hearing. He was able to work with physical therapy today. He has been comfortable per nursing. Current Medications - Current Medications Current Medications: Active Medications Acetaminophen (Acetaminophen 325 Mg Tablet) 650 mg PO Q4HR PRN PRN Reason: Pain or Fever > 38C (100.4F) Last Admin: 12/11/21 08:25 Dose: 650 mg Atorvastatin Calcium (Atorvastatin 40 Mg Tablet) 40 mg PO QPM ANNY Last Admin: 12/14/21 20:35 Dose: 40 mg Guaifenesin (Guaifenesin 100 Mg/5 Ml Udc) 100 mg PO Q6HR PRN PRN Reason: Cough Last Admin: 12/14/21 21:00 Dose: 100 mg Insulin Aspart (Insulin Aspart 300 Unit/3 Ml Pen) 3 - 11 unit SUBQ 0800,1200,1700,2100 [facility]; Protocol Last Admin: 12/15/21 07:45 Dose: Not Given Insulin Aspart (Insulin Aspart 300 Unit/3 Ml Pen) 5 unit SUBQ TIDWM [facility]; Protocol Insulin Glargine (Insulin Glargine 300 Unit/3 Ml Pen) 14 unit SUBQ QPM [facility] Lisinopril (Lisinopril 20 Mg Tablet) 20 mg PO DAILY [facility] Last Admin: 12/15/21 08:58 Dose: 20 mg Metoprolol Tartrate (Metoprolol Tartrate 25 Mg Tablet) 25 mg PO BID [facility] Last Admin: 12/15/21 08:58 Dose: 25 mg Mineral Oil (Min Oil/Dimethicon/Coconut Oil 92 Gm Tube) 1 applic TOP PRN PRN PRN Reason: Skin Care Last Admin: 12/14/21 20:36 Dose: 1 applic Multivitamins/Minerals (Multivitamin W/Minerals Tablet) 1 tab PO DAILYWM [facility] Last Admin: 12/15/21 08:57 Dose: 1 tab Ondansetron HCl (Ondansetron 4 Mg/2 Ml Vial) 4 mg IVP Q6HR PRN PRN Reason: Nausea / Vomiting Polyethylene Glycol (Polyethylene Glycol 3350 17 Gm Packet) 17 gm PO DAILY [facility] Last Admin: 12/15/21 08:57 Dose: 17 gm Risperidone (Risperidone 1 Mg Tablet) 0.5 mg PO QPM ANNY Last Admin: 12/14/21 20:34 Dose: 0.5 mg Saccharomyces Boulardii (Saccharomyces Boulardii 250 Mg Capsule) 500 mg PO BIDWM [facility] Last Admin: 12/15/21 08:57 Dose: 500 mg Sodium Chloride (Sodium Chloride Flush 0.9% 10 Ml Syringe) 10 ml IVP PRN PRN PRN Reason: NEEDED PER PROVIDER ORDERS Last Admin: 12/14/21 20:44 Dose: 10 ml Sodium Chloride (Sodium Chloride Flush 0.9% 10 Ml Syringe) 10 ml IVP 0100,09 00,1700 [facility] Last Admin: 12/15/21 09:02 Dose: 10 ml Trazodone HCl (Trazodone 50 Mg Tablet) 50 mg PO QPM PRN PRN Reason: Insomnia Glimepiride [Amaryl] 4 mg PO DAILYWM 12/07/21 Lisinopril [Zestril] 10 mg PO DAILY 12/07/21 Rosuvastatin Calcium [Crestor] 10 mg PO QPM 12/07/21 risperiDONE [Risperdal] 0.25 mg PO BID 12/07/21 Objective - Vital Signs/Intake & Output Reviewed Vital Signs: Yes Vital Signs: Vital Signs x48h Temp Pulse Pulse Resp BP BP BP 12/15/21 08:58 112/51 L 12/15/21 07:47 36.4 C L 76 20 145/58 H 12/15/21 04:06 36.5 C 77 18 149/61 H Pulse Ox 12/15/21 08:58 12/15/21 07:47 93 12/15/21 04:06 Intake & Output: Intake & Output 12/12/21 12/13/21 12/14/21 12/15/21 23:59 23:59 23:59 23:59 Intake Total 775 529.069 3468 250 Balance 775 478.775 2604 250 - Objective General Appearance: positive: No acute distress, Alert ENT: positive: ENT inspection nml Neck: positive: Nml inspection Respiratory: positive: No respiratory distress. negative: Wheezes, Rales Cardiovascular: positive: Regular rate & rhythm. negative: Systolic murmur Skin: positive: Warm, Dry Extremities: positive: No pedal edema Neurologic/Psychiatric: positive: Other (No focal deficits.) - Lab Results Fish Bones: 12/15/21 04:45 12/15/21 04:45 Other Labs: Lab Results x24hrs 12/15/21 12/15/21 12/15/21 Range/Units 07:22 04:45 04:45 WBC 14.0 H (4.8-10.8) x10^3/uL RBC 4.66 L (4.70-6.10) 10^6/uL Hgb 13.3 L (14.0-18.0) g/dL Hct 40.8 L (42.0-52.0) % MCV 87.6 (80.0-94.0) fL MCH 28.5 (27.0-31.0) pg MCHC 32.6 (32.0-36.0) g/dL RDW 13.1 (12.0-15.0) % Plt Count 387 (130-450) 10^3/uL MPV 10.0 (7.4-11.4) fL Neut # (Auto) 11.5 H (1.5-6.6) 10^3/uL Lymph # (Auto) 0.6 L (1.5-3.5) 10^3/uL [place] # (Auto) 1.4 H (0.0-1.0) 10^3/uL Eos # (Auto) 0.0 (0.0-0.7) 10^3/uL Baso # (Auto) 0.0 (0.0-0.1) 10^3/uL Absolute Nucleated RBC 0.00 x10^3/uL Nucleated RBC % 0.0 /100WBC Sodium 146 H (135-145) mmol/L Potassium 3.3 L (3.5-5.0) mmol/L Chloride 104 (101-111) mmol/L Carbon Dioxide 29 (21-32) mmol/L Anion Gap 13.0 (6-13) BUN 40 H (6-20) mg/dL Creatinine 1.0 (0.6-1.2) mg/dL Estimated GFR (MDRD) 72 L (>89) Glucose 70 (70-100) mg/dL POC Whole Bld Glucose 64 L (70 - 100) mg/dL Calcium 8.9 (8.5-10.3) mg/dL 12/14/21 12/14/21 12/14/21 Range/Units 20:38 16:39 11:46 WBC (4.8-10.8) x10^3/uL RBC (4.70-6.10) 10^6/uL Hgb (14.0-18.0) g/dL Hct (42.0-52.0) % MCV (80.0-94.0) fL MCH (27.0-31.0) pg MCHC (32.0-36.0) g/dL RDW (12.0-15.0) % Plt Count (130-450) 10^3/uL MPV (7.4-11.4) fL Neut # (Auto) (1.5-6.6) 10^3/uL Lymph # (Auto) (1.5-3.5) 10^3/uL [place] # (Auto) (0.0-1.0) 10^3/uL Eos # (Auto) (0.0-0.7) 10^3/uL Baso # (Auto) (0.0-0.1) 10^3/uL Absolute Nucleated RBC x10^3/uL Nucleated RBC % /100WBC Sodium (135-145) mmol/L Potassium (3.5-5.0) mmol/L Chloride (101-111) mmol/L Carbon Dioxide (21-32) mmol/L Anion Gap (6-13) BUN (6-20) mg/dL Creatinine (0.6-1.2) mg/dL Estimated GFR (MDRD) (>89) Glucose (70-100) mg/dL POC Whole Bld Glucose 290 H 348 H 272 H (70 - 100) mg/dL Calcium (8.5-10.3) mg/dL Sepsis Event Note (H) - Evaluation Current Stage of Sepsis: Resolved - Sepsis Criteria Sepsis Criteria: Recorded Heart Rate greater than 90 bpm, Respiratory: Increasing oxygen requirements, [employer]GING [employer]EE[employer]: altered consciousness (unrelated to primary neuro pathology), Metabolic: lactate > 2 mmol/L Assessment/Plan - Problem List (1) NSTEMI (non-ST elevated myocardial infarction) Impression: Concern was for NSTEMI given his troponin peaked over 1999. Fortunately his echocardiogram showed no wall motion abnormalities and a preserved ejection fraction. He was treated with therapeutic Lovenox. No aspirin due to his allergy. We have now discontinued Lovenox and will put him on Eliquis given the atrial fibrillation. Continue statin and beta-starla. He will need outpatient follow-up with cardiology. (2) Pneumonia due to COVID-19 virus Impression: He is now on room air and Decadron has been discontinued. He already completed 7 days of antibiotics. We will continue to monitor his respiratory status. (3) Atrial fibrillation with RVR Impression: He developed A. fib with RVR during his admission but is now back in a sinus rhythm. CT angiogram showed no evidence of PE. He was treated with therapeutic Lovenox and metoprolol. We will continue metoprolol and switch him to Eliquis today. (4) Hypernatremia Impression: Improved today and is secondary to decreased free water intake likely due to his underlying dementia. We have encouraged him to increase his free water intake and have asked nursing to provide him with a 250 mL cup of water every 4 hours. (5) Diabetes mellitus type 2 in nonobese Impression: His blood glucose has been labile due to steroids he was receiving for Covid. Now that he is on room air, the Decadron has been discontinued. He was hypoglycemic this morning so he cut back on his Lantus. We will keep his current nutritional dose and watch his blood glucose today as he is now off of the Decadron. His A1c was 9.2%. (6) Advanced dementia Impression: Stable. He has at his baseline. We are continuing his home risperidone and he is being evaluated physical therapy. He will need SNF and we are now working on disposition. (7) Acute respiratory failure with hypoxia Impression: This is now resolved and was secondary to COVID-19 pneumonia. He is now on room air.
[2021-12-15] MEDS ORDERED: INSULIN GLARGINE 300 UNIT/3 ML PEN SUBQ SCH (21:00)
[2021-12-15] MEDS: APIXABAN 5 MG TABLET PO SCH (21:00)
[2021-12-15] MEDS: ATORVASTATIN 40 MG TABLET PO SCH (21:01)
[2021-12-15] MEDS: risperiDONE 1 MG TABLET PO SCH (21:08)
[2021-12-16] MEDS: SODIUM CHLORIDE FLUSH 0.9% 10 ML SYRINGE IVP SCH ×4 (01:07→23:24)
[2021-12-16 05:02] LABS: BASOPHILS % (AUTO) 0.4 %; EOSINOPHILS % (AUTO) 0.8 %; HCT - HEMATOCRIT 41.7 % (42.0-52.0); HGB - HEMOGLOBIN 13.2 g/dL (14.0-18.0); LYMPHOCYTES % (AUTO) 9.3 %; MEAN CORPUSCULAR HEMOGLOBIN 28.1 pg (27.0-31.0); MEAN CORPUSCULAR HGB CONC 31.7 g/dL (32.0-36.0); MEAN CORPUSCULAR VOLUME 88.9 fL (80.0-94.0); MEAN PLATELET VOLUME 10.4 fL (7.4-11.4); MONOCYTES % (AUTO) 9.8 %; NEUTROPHILS % (AUTO) 74.8 %; PLT - PLATELET COUNT 336 10^3/uL (130-450); RED BLOOD COUNT 4.69 10^6/uL (4.70-6.10); RED CELL DISTRIBUTION WIDTH 13.4 % (12.0-15.0); WHITE BLOOD COUNT 10.5 x10^3/uL (4.8-10.8)
[2021-12-16 05:11] LABS: ABNORMAL LYMPHS % (MANUAL) 0 %; BAND NEUTROPHILS % (MANUAL) 0 %
[2021-12-16 05:15] LABS: CALCIUM 8.8 mg/dL (8.5-10.3); CREATININE 1.1 mg/dL (0.6-1.2); POTASSIUM 4.1 mmol/L (3.5-5.0)
[2021-12-16 05:21] LABS: EOSINOPHILS # (MANUAL) 0.2 10^3/uL (0-0.7); LYMPHOCYTES # (MANUAL) 1.4 10^3/uL (1.5-3.5); LYMPHOCYTES % (MANUAL) 13 %; MONOCYTES # (MANUAL) 0.3 10^3/uL (0.0-1.0); MYELOCYTES % (MANUAL) 1 %; NEUTROPHILS # (MANUAL) 8.5 10^3/uL (1.5-6.6)
[2021-12-16 05:22] LABS: DIFFERENTIAL COMMENT MANUAL DIFFERENTIAL; PLATELET ESTIMATE, MANUAL NORMAL (130-450,000) (NORMAL); PLATELET MORPHOLOGY NORMAL APPEARANCE (NORMAL); RBC MORPHOLOGY (MULTIPLE) NORMAL APPEARANCE (NORMAL); WBC MORPHOLOGY (MULTIPLE) NORMAL APPEARANCE (NORMAL)
[2021-12-16] MEDS: INSULIN ASPART 300 UNIT/3 ML PEN SUBQ SCH ×4 (07:43→20:48)
[2021-12-16] MEDS: SACCHAROMYCES BOULARDII 250 MG CAPSULE PO SCH ×2 (07:43→17:13)
[2021-12-16] MEDS: MULTIVITAMIN W/MINERALS TABLET PO SCH (07:43)
[2021-12-16] MEDS: D5.45NS W/20 MEQ KCL 1,000 ML IV SCH ×2 (08:33→19:57)
[2021-12-16] MEDS: ENOXAPARIN 40 MG/0.4 ML SYRINGE SUBQ SCH (08:34)
[2021-12-16] MEDS: METOPROLOL TARTRATE 25 MG TABLET PO SCH ×2 (08:35→19:58)
[2021-12-16] MEDS: lisinopriL 20 MG TABLET PO SCH (08:35)
[2021-12-16] MEDS: polyethylene glycoL 3350 17 GM PACKET PO SCH (08:36)
[2021-12-16] MEDS: APIXABAN 5 MG TABLET PO SCH ×2 (08:37→19:57)
[2021-12-16] MEDS ORDERED: CLOPIDOGREL 75 MG TABLET PO SCH (09:00)
[2021-12-16] MEDS ORDERED: BENZONATATE 100 MG CAPSULE PO PRN (09:02)
[2021-12-16] MEDS ORDERED: BENZONATATE 100 MG CAPSULE PO ONE (10:00)
--- NOTE | 2021-12-16 11:15 | PROVIDER PROGRESS NOTE ---
Assessment/Plan - Problem List (1) Hypernatremia Assessment/Plan: Na is 147, slight elevated, on today and still elevated BUN as well. discussed with pt's for keeping pt on hydration when she feed her . order 200 mL cup of water every 4 hours. we start with D5 1/2 NS IVF, lab monitor. (2)hypoglycemia pt show hypoglycemia on previous, today his glucose is 61 at morning. we hold scheduled tid insulin, continue slide scale, and morning lantus. pt's A1c is 9.2. because pt's oral intake was variable significantly, so his glucose control become difficult. (3) NSTEMI (non-ST elevated myocardial infarction) Impression: stable, pt is comfortable rest at bed, Patient is hemodynamic stable. Concern was for NSTEMI given his troponin peaked over 1999. Fortunately his echocardiogram showed no wall motion abnormalities and a preserved ejection fraction. He was treated with therapeutic Lovenox. No aspirin due to his allergy. We have now discontinued Lovenox and will put him on Eliquis given the atrial fibrillation. Continue statin and beta-starla. He will need outpatient follow-up with cardiology. (4) Pneumonia due to COVID-19 virus Impression: improved. pt has no respiratory distress on room air now. He already completed 7 days of antibiotics. We will continue to monitor his respiratory status. (5) Atrial fibrillation with RVR Impression: his HR is controlled now. He developed A. fib with RVR during his admission but is now back in a sinus rhythm. CT angiogram showed no evidence of PE. He was treated with therapeutic Lovenox and metoprolol. We will continue metoprolol and switch him to Eliquis today. (6) Diabetes mellitus type 2 in nonobese Impression: pt is off decatron now. He was hypoglycemic this morning so he cut back on his Lantus. We will keep his current nutritional dose and watch his blood glucose today as he is now off of the Decadron. His A1c was 9.2%. (7) Advanced dementia Impression: Stable. He has at his baseline. We are continuing his home risperidone and he is being evaluated physical therapy. He will need SNF and we are now working on disposition. director of social media marketing was consulted for placement. (8) Acute respiratory failure with hypoxia Impression: resolved and stable. This is now resolved and was secondary to COVID-19 pneumonia. He is now on room air. (3) Sepsis Qualifiers: Sepsis type: sepsis due to unspecified organism Sepsis acute organ dysfunction status: unspecified Qualified Code(s): A41.9 - Sepsis, unspecified organism - Current Meds Current Meds: Current Medications Generic Name Dose Route Start Last Admin Trade Name Freq PRN Reason Stop Dose Admin Acetaminophen 650 mg 12/08/21 00:31 12/11/21 08:25 Acetaminophen 325 Mg Tablet PO 650 mg Q4HR PRN Administration Pain or Fever > 38C (100.4F) Apixaban 5 mg 12/15/21 21:00 12/16/21 08:37 Apixaban 5 Mg Tablet PO 5 mg BID ANNY Administration Atorvastatin Calcium 40 mg 12/12/21 21:00 12/15/21 21:01 Atorvastatin 40 Mg Tablet PO 40 mg QPM ANNY Administration Enoxaparin Sodium 40 mg 12/16/21 09:00 12/16/21 08:34 Enoxaparin 40 Mg/0.4 Ml Syringe SUBQ 40 mg DAILY ANNY Administration Guaifenesin 100 mg 12/08/21 12:58 12/14/21 21:00 Guaifenesin 100 Mg/5 Ml Udc PO 100 mg Q6HR PRN Administration Cough Potassium Chloride/Dextrose/Sod Cl 1,000 mls @ 83.333 mls/hr 12/16/21 08:00 12/16/21 08:33 D5.45ns W/20 Meq Kcl IV 12/17/21 07:59 83.333 mls/hr .Q12H ANNY Administration Insulin Aspart 2 - 10 unit 12/16/21 08:00 12/16/21 07:43 Insulin Aspart 300 Unit/3 Ml Pen SUBQ Not Given 0800,1200,1700,2100 [facility] Protocol Lisinopril 20 mg 12/13/21 09:00 12/16/21 08:35 Lisinopril 20 Mg Tablet PO Not Given DAILY [facility] Metoprolol Tartrate 25 mg 12/11/21 01:00 12/16/21 08:35 Metoprolol Tartrate 25 Mg Tablet PO 25 mg BID ANNY Administration Mineral Oil 1 applic 12/13/21 17:18 12/14/21 20:36 Min Oil/Dimethicon/Coconut Oil 92 Gm Tube TOP 1 applic PRN PRN Administration Skin Care Multivitamins/Minerals 1 tab 12/09/21 16:00 12/16/21 07:43 Multivitamin W/Minerals Tablet PO 1 tab DAILYWM ANNY Administration Polyethylene Glycol 17 gm 12/09/21 09:00 12/16/21 08:36 Polyethylene Glycol 3350 17 Gm Packet PO 17 gm DAILY ANNY Administration Risperidone 0.5 mg 12/08/21 21:00 12/15/21 21:08 Risperidone 1 Mg Tablet PO 0.5 mg QPM ANNY Administration Saccharomyces Boulardii 500 mg 12/08/21 08:00 12/16/21 07:43 Saccharomyces Boulardii 250 Mg Capsule PO 500 mg BIDWM ANNY Administration Sodium Chloride 10 ml 12/08/21 00:31 12/14/21 20:44 Sodium Chloride Flush 0.9% 10 Ml Syringe IVP 10 ml PRN PRN Administration NEEDED PER PROVIDER ORDERS Sodium Chloride 10 ml 12/08/21 01:00 12/16/21 07:44 Sodium Chloride Flush 0.9% 10 Ml Syringe IVP 10 ml 0100,0900,1700 ANNY Administration - Lab Result Fish Bone Diagrams: 12/16/21 04:42 12/16/21 04:42 - Additional Planning My Orders: My Active Orders 12/16/21 08:00 D5.45ns W/20 Meq KCl 1,000 ml IV 83.333 mls/hr 12/16/21 09:02 Benzonatate [Tessalon] 100 mg PO TID PRN Subjective - Subjective Patient Reports: Resting Comfortably Objective Vital Signs: Vital Signs - 24 hr 12/15/21 12/15/21 12/15/21 14:00 15:50 23:48 Temperature 36.6 C 36.0 C L 36.7 C Heart Rate [ 88 62 59 L Brachial] Respiratory 18 18 18 Rate Blood Pressure 122/57 L 114/49 L [Right Brachial artery] Blood Pressure 124/57 L [Right Radial artery] O2 Saturation 91 L 97 89 L 12/16/21 01:28 Temperature Heart Rate [ Brachial] Respiratory Rate Blood Pressure [Right Brachial artery] Blood Pressure [Right Radial artery] O2 Saturation 96 Oxygen O2 Source Room air Oxygen Flow Rate 2 I&O (Last 24 Hrs): Intake and Output Totals x24h 12/14/21 12/15/21 12/16/21 23:59 23:59 23:59 Intake Total 1340 1360 590 Output Total 4 Balance 1340 1356 590 General: Alert, No acute distress HEENT: Atraumatic Neck: Supple Lymphatic: no adenopathy Neuro: Alert, Non Focal Cardiovascular: Regular rate, Normal S1, Normal S2 Respiratory: Chest non-tender, No respiratory distress Abdomen: Normal bowel sounds, Soft Extremities: Normal pulses - Results Results: Laboratory Results WBC 10.5 x10^3/uL (4.8-10.8) 12/16/21 04:42 RBC 4.69 10^6/uL (4.70-6.10) L 12/16/21 04:42 Hgb 13.2 g/dL (14.0-18.0) L 12/16/21 04:42 Hct 41.7 % (42.0-52.0) L 12/16/21 04:42 MCV 88.9 fL (80.0-94.0) 12/16/21 04:42 MCH 28.1 pg (27.0-31.0) 12/16/21 04:42 MCHC 31.7 g/dL (32.0-36.0) L 12/16/21 04:42 RDW 13.4 % (12.0-15.0) 12/16/21 04:42 Plt Count 336 10^3/uL (130-450) 12/16/21 04:42 MPV 10.4 fL (7.4-11.4) 12/16/21 04:42 Neut # (Auto) Not Reportable 12/16/21 04:42 Lymph # (Auto) Not Reportable 12/16/21 04:42 [place] # (Auto) Not Reportable 12/16/21 04:42 Eos # (Auto) Not Reportable 12/16/21 04:42 Baso # (Auto) Not Reportable 12/16/21 04:42 Absolute Nucleated RBC Not Reportable 12/16/21 04:42 Total Counted 100 12/16/21 04:42 Band Neuts % (Manual) 0 % (0-10) 12/16/21 04:42 Abnorm Lymph % (Manual) 0 % 12/16/21 04:42 Myelocytes % 1 % (-0) H 12/16/21 04:42 Nucleated RBC % Not Reportable 12/16/21 04:42 Neutrophils # (Manual) 8.5 10^3/uL (1.5-6.6) H 12/16/21 04:42 Lymphocytes # (Manual) 1.4 10^3/uL (1.5-3.5) L 12/16/21 04:42 Monocytes # (Manual) 0.3 10^3/uL (0.0-1.0) 12/16/21 04:42 Eosinophils # (Manual) 0.2 10^3/uL (0-0.7) 12/16/21 04:42 Basophils # (Manual) 0.0 10^3/uL (0-0.1) 12/16/21 04:42 Differential Comment MANUAL DIFFERENTIAL 12/16/21 04:42 WBC Morphology NORMAL APPEARANCE (NORMAL) 12/16/21 04:42 Platelet Estimate NORMAL (130-450,000) (NORMAL) 12/16/21 04:42 Platelet Morphology NORMAL APPEARANCE (NORMAL) 12/16/21 04:42 RBC Morph Micro Appear NORMAL APPEARANCE (NORMAL) 12/16/21 04:42 D-Dimer 867.2 ng/mL (200.0-255.0) H 12/08/21 05:00 Sodium 147 mmol/L (135-145) H 12/16/21 04:42 Potassium 4.1 mmol/L (3.5-5.0) 12/16/21 04:42 Chloride 106 mmol/L (101-111) 12/16/21 04:42 Carbon Dioxide 30 mmol/L (21-32) 12/16/21 04:42 Anion Gap 11.0 (6-13) 12/16/21 04:42 BUN 36 mg/dL (6-20) H 12/16/21 04:42 Creatinine 1.1 mg/dL (0.6-1.2) 12/16/21 04:42 Estimated GFR (MDRD) 64 (>89) L 12/16/21 04:42 Glucose 61 mg/dL (70-100) L 12/16/21 04:42 POC Whole Bld Glucose 91 mg/dL (70 - 100) 12/16/21 07:40 Estimat Average Glucose 217 mg/dL (70-100) H 12/08/21 00:00 Hemoglobin A1c % 9.2 % (4.27-6.07) H 12/08/21 00:00 Lactic Acid 1.8 mmol/L (0.5-2.2) 12/08/21 01:55 Calcium 8.8 mg/dL (8.5-10.3) 12/16/21 04:42 Phosphorus 3.1 mg/dL (2.5-4.6) 12/08/21 05:00 Magnesium 2.4 mg/dL (1.7-2.8) 12/08/21 05:00 Total Bilirubin 1.3 mg/dL (0.2-1.0) H 12/07/21 22:00 AST 43 IU/L (10-42) H 12/07/21 22:00 ALT 38 IU/L (10-60) 12/07/21 22:00 Alkaline Phosphatase 99 IU/L (42-121) 12/07/21 22:00 Troponin I High Sens 284.2 ng/L (2.3-19.7) H* 12/13/21 08:00 Total Protein 8.1 g/dL (6.7-8.2) 12/07/21 22:00 Albumin 3.3 g/dL (3.2-5.5) 12/07/21 22:00 Globulin 4.8 g/dL (2.1-4.2) H 12/07/21 22:00 Albumin/Globulin Ratio 0.7 (1.0-2.2) L 12/07/21 22:00 Triglycerides 53 mg/dL (-149) 12/12/21 05:51 Cholesterol 102 mg/dL (-199) 12/12/21 05:51 LDL Cholesterol, Calc 55 mg/dL (-129) 12/12/21 05:51 VLDL Cholesterol 11 mg/dL 12/12/21 05:51 HDL Cholesterol 36 mg/dL (60-) L 12/12/21 05:51 LDL/HDL Ratio 1.5 (<3.6) 12/12/21 05:51 Cholesterol/HDL Ratio 2.8 (<5.0) 12/12/21 05:51 Lipase 26 U/L (22-51) 12/07/21 22:00 25-OH Vitamin D Total 64 ng/mL (30-100) 12/07/21 22:00 Urine Color YELLOW 12/08/21 00:30 Urine Clarity CLEAR (CLEAR) 12/08/21 00:30 Urine pH 5.0 PH (5.0-7.5) 12/08/21 00:30 Ur Specific [place] 1.025 (1.002-1.030) 12/08/21 00:30 Urine Protein 100 mg/dL (NEGATIVE) H 12/08/21 00:30 Urine Glucose (UA) >=1000 mg/dL (NEGATIVE) H 12/08/21 00:30 Urine Ketones 15 mg/dL (NEGATIVE) H 12/08/21 00:30 Urine Occult Blood MODERATE (NEGATIVE) H 12/08/21 00:30 Urine Nitrite NEGATIVE (NEGATIVE) 12/08/21 00:30 Urine Bilirubin NEGATIVE (NEGATIVE) 12/08/21 00:30 Urine Urobilinogen 0.2 (NORMAL) E.U./dL (NORMAL) 12/08/21 00:30 Ur Leukocyte Esterase NEGATIVE (NEGATIVE) 12/08/21 00:30 Urine RBC 0-5 /HPF (0-5) 12/08/21 00:30 Urine WBC 0-3 /HPF (0-3) 12/08/21 00:30 Ur Squamous Epith Cells RARE Squamous (<= Few) 12/08/21 00:30 Urine Bacteria Rare /HPF (None Seen) 12/08/21 00:30 Ur Microscopic Review INDICATED 12/08/21 00:30 Urine Culture Comments NOT INDICATED 12/08/21 00:30 - Procedures Procedures: Procedures REPLACEMENT OF LEFT LENS WITH SYNTH SUB, PERC APPROACH (03/30/19) REPLACEMENT OF RIGHT LENS WITH SYNTH SUB, PERC APPROACH (01/05/19) Sepsis Event Note (H) - Evaluation Current Stage of Sepsis: Resolved - Sepsis Criteria Sepsis Criteria: Recorded Heart Rate greater than 90 bpm, Respiratory: Increa sing oxygen requirements, MEDICAL SECRETARY: altered consciousness (unrelated to primary neuro pathology), Metabolic: lactate > 2 mmol/L ABX Reporting Has patient been on IV antibiotics over the past 48 hours?: No Current Medications - Current Medications Current Medications: Active Medications Acetaminophen (Acetaminophen 325 Mg Tablet) 650 mg PO Q4HR PRN PRN Reason: Pain or Fever > 38C (100.4F) Last Admin: 12/11/21 08:25 Dose: 650 mg Apixaban (Apixaban 5 Mg Tablet) 5 mg PO BID [facility] Last Admin: 12/16/21 08:37 Dose: 5 mg Atorvastatin Calcium (Atorvastatin 40 Mg Tablet) 40 mg PO QPM [facility] Last Admin: 12/15/21 21:01 Dose: 40 mg Benzonatate (Benzonatate 100 Mg Capsule) 100 mg PO TID PRN PRN Reason: Cough Enoxaparin Sodium (Enoxaparin 40 Mg/0.4 Ml Syringe) 40 mg SUBQ DAILY [facility] Last Admin: 12/16/21 08:34 Dose: 40 mg Guaifenesin (Guaifenesin 100 Mg/5 Ml Udc) 100 mg PO Q6HR PRN PRN Reason: Cough Last Admin: 12/14/21 21:00 Dose: 100 mg Potassium Chloride/Dextrose/Sod Cl (D5.45ns W/20 Meq Kcl) 1,000 mls @ 83.333 mls/hr IV .Q12H [facility] Stop: 12/17/21 07:59 Last Admin: 12/16/21 08:33 Dose: 83.333 mls/hr Insulin Aspart (Insulin Aspart 300 Unit/3 Ml Pen) 2 - 10 unit SUBQ 0800,1200,1700,2100 [facility]; Protocol Last Admin: 12/16/21 07:43 Dose: Not Given Insulin Glargine (Insulin Glargine 300 Unit/3 Ml Pen) 10 unit SUBQ QDBREAKFAST [facility] Lisinopril (Lisinopril 20 Mg Tablet) 20 mg PO DAILY [facility] Last Admin: 12/16/21 08:35 Dose: Not Given Metoprolol Tartrate (Metoprolol Tartrate 25 Mg Tablet) 25 mg PO BID [facility] Last Admin: 12/16/21 08:35 Dose: 25 mg Mineral Oil (Min Oil/Dimethicon/Coconut Oil 92 Gm Tube) 1 applic TOP PRN PRN PRN Reason: Skin Care Last Admin: 12/14/21 20:36 Dose: 1 applic Multivitamins/Minerals (Multivitamin W/Minerals Tablet) 1 tab PO DAILYWM [facility] Last Admin: 12/16/21 07:43 Dose: 1 tab Ondansetron HCl (Ondansetron 4 Mg/2 Ml Vial) 4 mg IVP Q6HR PRN PRN Reason: Nausea / Vomiting Polyethylene Glycol (Polyethylene Glycol 3350 17 Gm Packet) 17 gm PO DAILY [facility] Last Admin: 12/16/21 08:36 Dose: 17 gm Risperidone (Risperidone 1 Mg Tablet) 0.5 mg PO QPM [facility] Last Admin: 12/15/21 21:08 Dose: 0.5 mg Saccharomyces Boulardii (Saccharomyces Boulardii 250 Mg Capsule) 500 mg PO BIDWM [facility] Last Admin: 12/16/21 07:43 Dose: 500 mg Sodium Chloride (Sodium Chloride Flush 0.9% 10 Ml Syringe) 10 ml IVP PRN PRN PRN Reason: NEEDED PER PROVIDER ORDERS Last Admin: 12/14/21 20:44 Dose: 10 ml Sodium Chloride (Sodium Chloride Flush 0.9% 10 Ml Syringe) 10 ml IVP 0100,0900,1700 [facility] Last Admin: 12/16/21 07:44 Dose: 10 ml Trazodone HCl (Trazodone 50 Mg Tablet) 50 mg PO QPM PRN PRN Reason: Insomnia Glimepiride [Amaryl] 4 mg PO DAILYWM 12/07/21 Lisinopril [Zestril] 10 mg PO DAILY 12/07/21 Rosuvastatin Calcium [Crestor] 10 mg PO QPM 12/07/21 risperiDONE [Risperdal] 0.25 mg PO BID 12/07/21
[2021-12-16] MEDS ORDERED: INSULIN ASPART 300 UNIT/3 ML PEN SUBQ ONE ×2 (17:09→20:43)
[2021-12-16 17:11] LABS: CORONAVIRUS 229E-RESP PCR NOT DETECTED; CORONAVIRUS HKU1-RESP PCR NOT DETECTED; CORONAVIRUS NL63-RESP PCR NOT DETECTED; CORONAVIRUS OC43-RESP PCR NOT DETECTED
[2021-12-16 17:12] LABS: B. PARAPERTUSSIS- RESP PCR PAN NOT DETECTED; B. PERTUSSIS- RESP PCR PANEL NOT DETECTED; C. PNEUMONIAE- RESP PCR PANEL NOT DETECTED; HUMAN METAPNEUMOVIRUS NOT DETECTED; INFLUENZA A- RESP PCR PANEL NOT DETECTED; INFLUENZA B - RESP PCR PANEL NOT DETECTED; M. PNEUMONIAE- RESP PCR PANEL NOT DETECTED; PARAINFLUENZA VIRUS 1 NOT DETECTED; PARAINFLUENZA VIRUS 2 NOT DETECTED; PARAINFLUENZA VIRUS 3 NOT DETECTED; PARAINFLUENZA VIRUS 4 NOT DETECTED; RHINOVIRUS/ENTEROVIRUS NOT DETECTED; RSV- RESP PCR PANEL NOT DETECTED; SARS-CoV-2 -RESP PCR PANEL DETECTED
[2021-12-16] MEDS: risperiDONE 1 MG TABLET PO SCH (19:57)
[2021-12-16] MEDS: ACETAMINOPHEN 325 MG TABLET PO PRN (19:57)
[2021-12-16] MEDS: ATORVASTATIN 40 MG TABLET PO SCH (19:57)
[2021-12-17 05:14] LABS: BASOPHILS % (AUTO) 0.3 %; EOSINOPHILS % (AUTO) 1.8 %; HCT - HEMATOCRIT 36.4 % (42.0-52.0); HGB - HEMOGLOBIN 11.6 g/dL (14.0-18.0); LYMPHOCYTES % (AUTO) 9.7 %; MEAN CORPUSCULAR HEMOGLOBIN 28.6 pg (27.0-31.0); MEAN CORPUSCULAR HGB CONC 31.9 g/dL (32.0-36.0); MEAN CORPUSCULAR VOLUME 89.7 fL (80.0-94.0); MEAN PLATELET VOLUME 10.5 fL (7.4-11.4); MONOCYTES % (AUTO) 9.4 %; NEUTROPHILS % (AUTO) 72.2 %; PLT - PLATELET COUNT 285 10^3/uL (130-450); RED BLOOD COUNT 4.06 10^6/uL (4.70-6.10); RED CELL DISTRIBUTION WIDTH 13.5 % (12.0-15.0); WHITE BLOOD COUNT 7.4 x10^3/uL (4.8-10.8)
[2021-12-17 05:25] LABS: CALCIUM 8.7 mg/dL (8.5-10.3); CREATININE 0.9 mg/dL (0.6-1.2); POTASSIUM 4.4 mmol/L (3.5-5.0)
[2021-12-17 05:30] LABS: ABNORMAL LYMPHS % (MANUAL) 0 %
[2021-12-17 05:52] LABS: BAND NEUTROPHILS % (MANUAL) 1 %; DIFFERENTIAL COMMENT MANUAL DIFFERENTIAL; LYMPHOCYTES # (MANUAL) 0.6 10^3/uL (1.5-3.5); LYMPHOCYTES % (MANUAL) 8 %; MONOCYTES # (MANUAL) 0.4 10^3/uL (0.0-1.0); NEUTROPHILS # (MANUAL) 6.4 10^3/uL (1.5-6.6); PLATELET ESTIMATE, MANUAL NORMAL (130-450,000) (NORMAL); RBC MORPHOLOGY (MULTIPLE) NORMAL APPEARANCE (NORMAL)
[2021-12-17] MEDS: INSULIN ASPART 300 UNIT/3 ML PEN SUBQ SCH ×7 (08:24→21:12)
[2021-12-17] MEDS: INSULIN GLARGINE 300 UNIT/3 ML PEN SUBQ SCH (08:27)
[2021-12-17] MEDS: SACCHAROMYCES BOULARDII 250 MG CAPSULE PO SCH ×2 (08:33→17:19)
[2021-12-17] MEDS: MULTIVITAMIN W/MINERALS TABLET PO SCH (08:33)
[2021-12-17] MEDS: polyethylene glycoL 3350 17 GM PACKET PO SCH (08:33)
[2021-12-17] MEDS: ENOXAPARIN 40 MG/0.4 ML SYRINGE SUBQ SCH (08:33)
[2021-12-17] MEDS: APIXABAN 5 MG TABLET PO SCH ×2 (08:33→21:12)
[2021-12-17] MEDS: SODIUM CHLORIDE FLUSH 0.9% 10 ML SYRINGE IVP SCH ×2 (08:41→17:19)
--- NOTE | 2021-12-17 08:49 | PROVIDER PROGRESS NOTE ---
Assessment/Plan - Problem List (1) Hypernatremia Assessment/Plan: 12/17 resolved. pt feed himself on today morning breakfast, continue keep hydration and free water for pt. continue lab monitor. consult with oncology social work for d/c planning, but pt's Covid 19 test is still positive even pt is asymptomatic now, put pt on difficult position for SNF discharge. Na is 147, slight elevated, on today and still elevated BUN as well. discussed with pt's for keeping pt on hydration when she feed her . order 200 mL cup of water every 4 hours. we start with D5 / NS IVF, lab monitor. (2)hypoglycemia 12/17 resolved. his glucose increased to over 200 at morning, add scheduled insulin plus slide scale, hypoglycemia protocol as well. pt show hypoglycemia on previous, today his glucose is 61 at morning. we hold scheduled tid insulin, continue slide scale, and morning lantus. pt's A1c is 9.2. because pt's oral intake was variable significantly, so his glucose control become difficult. (3) NSTEMI (non-ST elevated myocardial infarction) Impression: stable, pt is comfortable rest at bed, Patient is hemodynamic stable. Concern wa s for NSTEMI given his troponin peaked over 1999. Fortunately his echocardiogram showed no wall motion abnormalities and a preserved ejection fraction. He was treated with therapeutic Lovenox. No aspirin due to his allergy. We have now discontinued Lovenox and will put him on Eliquis given the atrial fibrillation. Continue statin and beta-starla. He will need outpatient follow-up with cardiology. (4) Pneumonia due to COVID-19 virus Impression: improved. pt has no respiratory distress on room air now. He already completed 7 days of antibiotics. We will continue to monitor his respiratory status. (5) Atrial fibrillation with RVR Impression: his HR is controlled now. He developed A. fib with RVR during his admission but is now back in a sinus rhythm. CT angiogram showed no evidence of PE. He was treated with therapeutic Lovenox and metoprolol. We will continue metoprolol and switch him to Eliquis today. (6) Diabetes mellitus type 2 in nonobese Impression: pt is off decatron now. He was hypoglycemic this morning so he cut back on his Lantus. We will keep his current nutritional dose and watch his blood glucose today as he is now off of the Decadron. His A1c was 9.2%. (7) Advanced dementia Impression: Stable. He has at his baseline. We are continuing his home risperidone and he is being evaluated physical therapy. He will need SNF and we are now working on disposition. oncology social work was consulted for placement. (8) Acute respiratory failure with hypoxia Impression: resolved and stable. This is now resolved and was secondary to COVID-19 pneumonia. He is now on room air. (9)weakness consult with PT/OT. recommended pt for SNF. consulted with oncology social work for disposition planning. (3) Sepsis Qualifiers: Sepsis type: sepsis due to unspecified organism Sepsis acute organ dysfunction status: unspecified Qualified Code(s): A41.9 - Sepsis, unspecified organism - Current Meds Current Meds: Current Medications Generic Name Dose Route Start Last Admin Trade Name Freq PRN Reason Stop Dose Admin Acetaminophen 650 mg 12/08/21 00:31 12/16/21 19:57 Acetaminophen 325 Mg Tablet PO 650 mg Q4HR PRN Administration Pain or Fever > 38C (100.4F) Apixaban 5 mg 12/15/21 21:00 12/17/21 08:33 Apixaban 5 Mg Tablet PO 5 mg BID ANNY Administration Atorvastatin Calcium 40 mg 12/12/21 21:00 12/16/21 19:57 Atorvastatin 40 Mg Tablet PO 40 mg QPM ANNY Administration Enoxaparin Sodium 40 mg 12/16/21 09:00 12/17/21 08:33 Enoxaparin 40 Mg/0.4 Ml Syringe SUBQ 40 mg DAILY ANNY Administration Guaifenesin 100 mg 12/08/21 12:58 12/14/21 21:00 Guaifenesin 100 Mg/5 Ml Udc PO 100 mg Q6HR PRN Administration Cough Insulin Aspart 3 - 11 unit 12/16/21 21:00 12/17/21 08:24 Insulin Aspart 300 Unit/3 Ml Pen SUBQ 5 unit 0800,1200,1700,2100 ANNY Administration Protocol Insulin Aspart 3 unit 12/17/21 08:00 12/17/21 08:25 Insulin Aspart 300 Unit/3 Ml Pen SUBQ 3 unit TIDWM ANNY Administration Protocol Insulin Glargine 10 unit 12/17/21 08:00 12/17/21 08:27 Insulin Glargine 300 Unit/3 Ml Pen SUBQ 10 unit QDBREAKFAST ANNY Administration Lisinopril 20 mg 12/13/21 09:00 12/16/21 08:35 Lisinopril 20 Mg Tablet PO Not Given DAILY ANNY Metoprolol Tartrate 25 mg 12/11/21 01:00 12/16/21 19:58 Metoprolol Tartrate 25 Mg Tablet PO 25 mg BID ANNY Administration Mineral Oil 1 applic 12/13/21 17:18 12/14/21 20:36 Min Oil/Dimethicon/Coconut Oil 92 Gm Tube TOP 1 applic PRN PRN Administration Skin Care Multivitamins/Minerals 1 tab 12/09/21 16:00 12/17/21 08:33 Multivitamin W/Minerals Tablet PO 1 tab DAILYWM ANNY Administration Polyethylene Glycol 17 gm 12/09/21 09:00 12/17/21 08:33 Polyethylene Glycol 3350 17 Gm Packet PO 17 gm DAILY ANNY Administration Risperidone 0.5 mg 12/08/21 21:00 12/16/21 19:57 Risperidone 1 Mg Tablet PO 0.5 mg QPM ANNY Administration Saccharomyces Boulardii 500 mg 12/08/21 08:00 12/17/21 08:33 Saccharomyces Boulardii 250 Mg Capsule PO 500 mg BIDWM ANNY Administration Sodium Chloride 10 ml 12/08/21 00:31 12/14/21 20:44 Sodium Chloride Flush 0.9% 10 Ml Syringe IVP 10 ml PRN PRN Administration NEEDED PER PROVIDER ORDERS Sodium Chloride 10 ml 12/08/21 01:00 12/17/21 08:41 Sodium Chloride Flush 0.9% 10 Ml Syringe IVP 10 ml 0100,0900,1700 ANNY Administration - Lab Result Fish Bone Diagrams: 12/17/21 04:47 12/17/21 04:47 - Additional Planning My Orders: My Active Orders 12/16/21 09:02 Benzonatate [Tessalon] 100 mg PO TID PRN 12/16/21 21:00 Insulin Aspart [NovoLOG] 3 - 11 unit SUBQ 0800,1200,1700,2100 12/17/21 07:22 Blood Glucose Checks - Eating [RC] 0800,1200,1700,2100 12/17/21 08:00 Insulin Aspart [NovoLOG] 3 unit SUBQ TIDWM 12/18/21 05:00 BMP - BASIC METABOLIC PANEL [CHEM] DAILYLAB CBC - COMP BLD CT W/AUTO DIFF [HEME] DAILYLAB 12/19/21 05:00 BMP - BASIC METABOLIC PANEL [CHEM] DAILYLAB CBC - COMP BLD CT W/AUTO DIFF [HEME] DAILYLAB 12/20/21 05:00 BMP - BASIC METABOLIC PANEL [CHEM] DAILYLAB CBC - COMP BLD CT W/AUTO DIFF [HEME] DAILYLAB 12/21/21 05:00 BMP - BASIC METABOLIC PANEL [CHEM] DAILYLAB CBC - COMP BLD CT W/AUTO DIFF [HEME] DAILYLAB 12/22/21 05:00 BMP - BASIC METABOLIC PANEL [CHEM] DAILYLAB CBC - COMP BLD CT W/AUTO DIFF [HEME] DAILYLAB Subjective - Subjective Patient Reports: Resting Comfortably Objective Vital Signs: Vital Signs - 24 hr 12/16/21 12/16/21 12/17/21 15:36 19:58 00:13 Temperature 36.9 C 36.4 C L Heart Rate [ 70 65 Brachial] Heart Rate [ Monitoring electrodes] Respiratory 18 18 Rate Blood Pressure 123/99 H Blood Pressure 110/49 L [Right Brachial artery] Blood Pressure 101/40 L [Right Radial artery] O2 Saturation 93 96 12/17/21 12/17/21 07:14 08:39 Temperature 36.4 C L Heart Rate [ 65 Brachial] Heart Rate [ 78 Monitoring electrodes] Respiratory 16 Rate Blood Pressure Blood Pressure 158/64 H [Right Brachial artery] Blood Pressure 102/45 L [Right Radial artery] O2 Saturation 93 Oxygen O2 Source Room air Oxygen Flow Rate 2 I&O (Last 24 Hrs): Intake and Output Totals x24h 12/15/21 12/16/21 12/17/21 23:59 23:59 23:59 Intake Total 1360 2379.996 1240 Output Total 4 Balance 1356 2379.996 1240 General: Alert, Cooperative, No acute distress HEENT: Atraumatic Neck: Supple Lymphatic: no adenopathy Neuro: Alert, Non Focal Cardiovascular: Regular rate, Normal S1, Normal S2 Respiratory: Chest non-tender, No respiratory distress Abdomen: Normal bowel sounds, Soft, No tenderness Extremities: Normal pulses - Results Results: Laboratory Results WBC 7.4 x10^3/uL (4.8-10.8) 12/17/21 04:47 RBC 4.06 10^6/uL (4.70-6.10) L 12/17/21 04:47 Hgb 11.6 g/dL (14.0-18.0) L 12/17/21 04:47 Hct 36.4 % (42.0-52.0) L 12/17/21 04:47 MCV 89.7 fL (80.0-94.0) 12/17/21 04:47 MCH 28.6 pg (27.0-31.0) 12/17/21 04:47 MCHC 31.9 g/dL (32.0-36.0) L 12/17/21 04:47 RDW 13.5 % (12.0-15.0) 12/17/21 04:47 Plt Count 285 10^3/uL (130-450) 12/17/21 04:47 MPV 10.5 fL (7.4-11.4) 12/17/21 04:47 Neut # (Auto) Not Reportable 12/17/21 04:47 Lymph # (Auto) Not Reportable 12/17/21 04:47 [place] # (Auto) Not Reportable 12/17/21 04:47 Eos # (Auto) Not Reportable 12/17/21 04:47 Baso # (Auto) Not Reportable 12/17/21 04:47 Absolute Nucleated RBC Not Reportable 12/17/21 04:47 Total Counted 100 12/17/21 04:47 Band Neuts % (Manual) 1 % (0-10) 12/17/21 04:47 Abnorm Lymph % (Manual) 0 % 12/17/21 04:47 Myelocytes % 1 % (-0) H 12/16/21 04:42 Nucleated RBC % Not Reportable 12/17/21 04:47 Neutrophils # (Manual) 6.4 10^3/uL (1.5-6.6) 12/17/21 04:47 Lymphocytes # (Manual) 0.6 10^3/uL (1.5-3.5) L 12/17/21 04:47 Monocytes # (Manual) 0.4 10^3/uL (0.0-1.0) 12/17/21 04:47 Eosinophils # (Manual) 0.0 10^3/uL (0-0.7) 12/17/21 04:47 Basophils # (Manual) 0.0 10^3/uL (0-0.1) 12/17/21 04:47 Differential Comment MANUAL DIFFERENTIAL 12/17/21 04:47 WBC Morphology NORMAL APPEARANCE (NORMAL) 12/16/21 04:42 Platelet Estimate NORMAL (130-450,000) (NORMAL) 12/17/21 04:47 Platelet Morphology NORMAL APPEARANCE (NORMAL) 12/16/21 04:42 RBC Morph Micro Appear NORMAL APPEARANCE (NORMAL) 12/17/21 04:47 D-Dimer 867.2 ng/mL (200.0-255.0) H 12/08/21 05:00 Sodium 139 mmol/L (135-145) 12/17/21 04:47 Potassium 4.4 mmol/L (3.5-5.0) 12/17/21 04:47 Chloride 105 mmol/L (101-111) 12/17/21 04:47 Carbon Dioxide 26 mmol/L (21-32) 12/17/21 04:47 Anion Gap 8.0 (6-13) 12/17/21 04:47 BUN 37 mg/dL (6-20) H 12/17/21 04:47 Creatinine 0.9 mg/dL (0.6-1.2) 12/17/21 04:47 Estimated GFR (MDRD) 81 (>89) L 12/17/21 04:47 Glucose 257 mg/dL (70-100) H 12/17/21 04:47 POC Whole Bld Glucose 204 mg/dL (70 - 100) H 12/17/21 07:18 Estimat Average Glucose 217 mg/dL (70-100) H 12/08/21 00:00 Hemoglobin A1c % 9.2 % (4.27-6.07) H 12/08/21 00:00 Lactic Acid 1.8 mmol/L (0.5-2.2) 12/08/21 01:55 Calcium 8.7 mg/dL (8.5-10.3) 12/17/21 04:47 Phosphorus 3.1 mg/dL (2.5-4.6) 12/08/21 05:00 Magnesium 2.4 mg/dL (1.7-2.8) 12/08/21 05:00 Total Bilirubin 1.3 mg/dL (0.2-1.0) H 12/07/21 22:00 AST 43 IU/L (10-42) H 12/07/21 22:00 ALT 38 IU/L (10-60) 12/07/21 22:00 Alkaline Phosphatase 99 IU/L (42-121) 12/07/21 22:00 Troponin I High Sens 284.2 ng/L (2.3-19.7) H* 12/13/21 08:00 Total Protein 8.1 g/dL (6.7-8.2) 12/07/21 22:00 Albumin 3.3 g/dL (3.2-5.5) 12/07/21 22:00 Globulin 4.8 g/dL (2.1-4.2) H 12/07/21 22:00 Albumin/Globulin Ratio 0.7 (1.0-2.2) L 12/07/21 22:00 Triglycerides 53 mg/dL (-149) 12/12/21 05:51 Cholesterol 102 mg/dL (-199) 12/12/21 05:51 LDL Cholesterol, Calc 55 mg/dL (-129) 12/12/21 05:51 VLDL Cholesterol 11 mg/dL 12/12/21 05:51 HDL Cholesterol 36 mg/dL (60-) L 12/12/21 05:51 LDL/HDL Ratio 1.5 (<3.6) 12/12/21 05:51 Cholesterol/HDL Ratio 2.8 (<5.0) 12/12/21 05:51 Lipase 26 U/L (22-51) 12/07/21 22:00 25-OH Vitamin D Total 64 ng/mL (30-100) 12/07/21 22:00 Urine Color YELLOW 12/08/21 00:30 Urine Clarity CLEAR (CLEAR) 12/08/21 00:30 Urine pH 5.0 PH (5.0-7.5) 12/08/21 00:30 Ur Specific Morgan 1.025 (1.002-1.030) 12/08/21 00:30 Urine Protein 100 mg/dL (NEGATIVE) H 12/08/21 00:30 Urine Glucose (UA) >=1000 mg/dL (NEGATIVE) H 12/08/21 00:30 Urine Ketones 15 mg/dL (NEGATIVE) H 12/08/21 00:30 Urine Occult Blood MODERATE (NEGATIVE) H 12/08/21 00:30 Urine Nitrite NEGATIVE (NEGATIVE) 12/08/21 00:30 Urine Bilirubin NEGATIVE (NEGATIVE) 12/08/21 00:30 Urine Urobilinogen 0.2 (NORMAL) E.U./dL (NORMAL) 12/08/21 00:30 Ur Leukocyte Esterase NEGATIVE (NEGATIVE) 12/08/21 00:30 Urine RBC 0-5 /HPF (0-5) 12/08/21 00:30 Urine WBC 0-3 /HPF (0-3) 12/08/21 00:30 Ur Squamous Epith Cells RARE Squamous (<= Few) 12/08/21 00:30 Urine Bacteria Rare /HPF (None Seen) 12/08/21 00:30 Ur Microscopic Review INDICATED 12/08/21 00:30 Urine Culture Comments NOT INDICATED 12/08/21 00:30 Nasal Adenovirus (PCR) NOT DETECTED 12/16/21 16:05 Nasal B. parapertussis DNA (PCR) NOT DETECTED 12/16/21 16:05 Nasal Coronavir 229E PCR NOT DETECTED 12/16/21 16:05 Nasal Coronavir HKU1 PCR NOT DETECTED 12/16/21 16:05 Nasal Coronavir NL63 PCR NOT DETECTED 12/16/21 16:05 Nasal Coronavir OC43 PCR NOT DETECTED 12/16/21 16:05 Nasal Enterovir/Rhinovir PCR NOT DETECTED 12/16/21 16:05 Nasal Influenza B PCR NOT DETECTED 12/16/21 16:05 Nasal Influenza A PCR NOT DETECTED 12/16/21 16:05 Nasal Parainfluen 1 PCR NOT DETECTED 12/16/21 16:05 Nasal Parainfluen 2 PCR NOT DETECTED 12/16/21 16:05 Nasal Parainfluen 3 PCR NOT DETECTED 12/16/21 16:05 Nasal Parainfluen 4 PCR NOT DETECTED 12/16/21 16:05 Nasal RSV (PCR) NOT DETECTED 12/16/21 16:05 Nasal B.pertussis DNA PCR NOT DETECTED 12/16/21 16:05 Nasal C.pneumoniae (PCR) NOT DETECTED 12/16/21 16:05 [place] Human Metapneumo PCR NOT DETECTED 12/16/21 16:05 Nasal M.pneumoniae (PCR) NOT DETECTED 12/16/21 16:05 Nasal SARS-CoV-2 (PCR) DETECTED A 12/16/21 16:05 - Procedures Procedures: Procedures REPLACEMENT OF LEFT LENS WITH SYNTH SUB, PERC APPROACH (03/30/19) REPLACEMENT OF RIGHT LENS WITH SYNTH SUB, PERC APPROACH (01/05/19) Sepsis Event Note (H) - Evaluation Current Stage of Sepsis: Resolved - Sepsis Criteria Sepsis Criteria: Recorded Heart Rate greater than 90 bpm, Respiratory: Increasing oxygen requirements, ENVIRONMENT COORDINATOR: altered consciousness (unrelated to primary neuro pathology), Metabolic: lactate > 2 mmol/L ABX Reporting Has patient been on IV antibiotics over the past 48 hours?: No Current Medications - Current Medications Current Medications: Active Medications Acetaminophen (Acetaminophen 325 Mg Tablet) 650 mg PO Q4HR PRN PRN Reason: Pain or Fever > 38C (100.4F) Last Admin: 12/16/21 19:57 Dose: 650 mg Apixaban (Apixaban 5 Mg Tablet) 5 mg PO BID [facility] [place] Last Admin: 12/17/21 08:33 Dose: 5 mg Atorvastatin Calcium (Atorvastatin 40 Mg Tablet) 40 mg PO QPM [facility] [place] Last Admin: 12/16/21 19:57 Dose: 40 mg Benzonatate (Benzonatate 100 Mg Capsule) 100 mg PO TID PRN PRN Reason: Cough Enoxaparin Sodium (Enoxaparin 40 Mg/0.4 Ml Syringe) 40 mg SUBQ DAILY [facility] [place] Last Admin: 12/17/21 08:33 Dose: 40 mg Guaifenesin (Guaifenesin 100 Mg/5 Ml Udc) 100 mg PO Q6HR PRN PRN Reason: Cough Last Admin: 12/14/21 21:00 Dose: 100 mg Insulin Aspart (Insulin Aspart 300 Unit/3 Ml Pen) 3 - 11 unit SUBQ 0800,1200,1700,2100 [facility] [place]; Protocol Last Admin: 12/17/21 08:24 Dose: 5 unit Insulin Aspart (Insulin Aspart 300 Unit/3 Ml Pen) 3 unit SUBQ TIDWM [facility] [place]; Protocol Last Admin: 12/17/21 08:25 Dose: 3 unit Insulin Glargine (Insulin Glargine 300 Unit/3 Ml Pen) 10 unit SUBQ QDBREAKFAST [facility] [place] Last Admin: 12/17/21 08:27 Dose: 10 unit Lisinopril (Lisinopril 20 Mg Tablet) 20 mg PO DAILY [facility] [place] Last Admin: 12/16/21 08:35 Dose: Not Given Metoprolol Tartrate (Metoprolol Tartrate 25 Mg Tablet) 25 mg PO BID [facility] [place] Last Admin: 12/16/21 19:58 Dose: 25 mg Mineral Oil (Min Oil/Dimethicon/Coconut Oil 92 Gm Tube) 1 applic TOP PRN PRN PRN Reason: Skin Care Last Admin: 12/14/21 20:36 Dose: 1 applic Multivitamins/Minerals (Multivitamin W/Minerals Tablet) 1 tab PO DAILYWM [facility] [place] Last Admin: 12/17/21 08:33 Dose: 1 tab Ondansetron HCl (Ondansetron 4 Mg/2 Ml Vial) 4 mg IVP Q6HR PRN PRN Reason: Nausea / Vomiting Polyethylene Glycol (Polyethylene Glycol 3350 17 Gm Packet) 17 gm PO DAILY [facility] [place] Last Admin: 12/17/21 08:33 Dose: 17 gm Risperidone (Risperidone 1 Mg Tablet) 0.5 mg PO QPM [facility] [place] Last Admin: 12/16/21 19:57 Dose: 0.5 mg Saccharomyces Boulardii (Saccharomyces Boulardii 250 Mg Capsule) 500 mg PO BIDWM [facility] [place] Last Admin: 12/17/21 08:33 Dose: 500 mg Sodium Chloride (Sodium Chloride Flush 0.9% 10 Ml Syringe) 10 ml IVP PRN PRN PRN Reason: NEEDED PER PROVIDER ORDERS Last Admin: 12/14/21 20:44 Dose: 10 ml Sodium Chloride (Sodium Chloride Flush 0.9% 10 Ml Syringe) 10 ml IVP 0100,0900,1700 [facility] [place] Last Admin: 12/17/21 08:41 Dose: 10 ml Trazodone HCl (Trazodone 50 Mg Tablet) 50 mg PO QPM PRN PRN Reason: Insomnia Glimepiride [Amaryl] 4 mg PO DAILYWM 12/07/21 Lisinopril [Zestril] 10 mg PO DAILY 12/07/21 Rosuvastatin Calcium [Crestor] 10 mg PO QPM 12/07/21 risperiDONE [Risperdal] 0.25 mg PO BID 12/07/21
[2021-12-17] MEDS: METOPROLOL TARTRATE 25 MG TABLET PO SCH ×2 (10:10→21:11)
[2021-12-17] MEDS: lisinopriL 20 MG TABLET PO SCH (10:11)
[2021-12-17] MEDS: risperiDONE 1 MG TABLET PO SCH (21:11)
[2021-12-17] MEDS: ATORVASTATIN 40 MG TABLET PO SCH (21:12)
[2021-12-18 05:18] LABS: BASOPHILS % (AUTO) 0.4 %; EOSINOPHILS % (AUTO) 1.2 %; HCT - HEMATOCRIT 39.6 % (42.0-52.0); HGB - HEMOGLOBIN 12.6 g/dL (14.0-18.0); LYMPHOCYTES % (AUTO) 8.2 %; MEAN CORPUSCULAR HEMOGLOBIN 28.6 pg (27.0-31.0); MEAN CORPUSCULAR HGB CONC 31.8 g/dL (32.0-36.0); MEAN CORPUSCULAR VOLUME 89.8 fL (80.0-94.0); MEAN PLATELET VOLUME 9.7 fL (7.4-11.4); MONOCYTES % (AUTO) 8.3 %; NEUTROPHILS % (AUTO) 76.4 %; PLT - PLATELET COUNT 301 10^3/uL (130-450); RED BLOOD COUNT 4.41 10^6/uL (4.70-6.10); RED CELL DISTRIBUTION WIDTH 13.5 % (12.0-15.0); WHITE BLOOD COUNT 9.2 x10^3/uL (4.8-10.8)
[2021-12-18 05:21] LABS: ABNORMAL LYMPHS % (MANUAL) 0 %
[2021-12-18 05:26] LABS: CALCIUM 8.9 mg/dL (8.5-10.3); POTASSIUM 4.4 mmol/L (3.5-5.0)
[2021-12-18 05:39] LABS: BAND NEUTROPHILS % (MANUAL) 2 %; BASOPHILS # (MANUAL) 0.1 10^3/uL (0-0.1); BASOPHILS % (MANUAL) 1 %; EOSINOPHILS # (MANUAL) 0.3 10^3/uL (0-0.7); LYMPHOCYTES # (MANUAL) 0.9 10^3/uL (1.5-3.5); LYMPHOCYTES % (MANUAL) 10 %; MONOCYTES # (MANUAL) 0.7 10^3/uL (0.0-1.0); NEUTROPHILS # (MANUAL) 7.2 10^3/uL (1.5-6.6); PLATELET ESTIMATE, MANUAL NORMAL (130-450,000) (NORMAL); RBC MORPHOLOGY (MULTIPLE) NORMAL APPEARANCE (NORMAL)
[2021-12-18 05:40] LABS: DIFFERENTIAL COMMENT MANUAL DIFFERENTIAL
[2021-12-18] MEDS: INSULIN ASPART 300 UNIT/3 ML PEN SUBQ SCH ×7 (07:58→20:26)
[2021-12-18] MEDS: INSULIN GLARGINE 300 UNIT/3 ML PEN SUBQ SCH (07:59)
[2021-12-18] MEDS: MULTIVITAMIN W/MINERALS TABLET PO SCH (08:32)
[2021-12-18] MEDS: METOPROLOL TARTRATE 25 MG TABLET PO SCH ×2 (08:32→20:25)
[2021-12-18] MEDS: lisinopriL 20 MG TABLET PO SCH (08:34)
[2021-12-18] MEDS: ENOXAPARIN 40 MG/0.4 ML SYRINGE SUBQ SCH (08:34)
[2021-12-18] MEDS: SACCHAROMYCES BOULARDII 250 MG CAPSULE PO SCH ×2 (08:34→17:14)
[2021-12-18] MEDS: APIXABAN 5 MG TABLET PO SCH ×2 (08:34→20:25)
[2021-12-18] MEDS: polyethylene glycoL 3350 17 GM PACKET PO SCH (08:35)
[2021-12-18] MEDS: SODIUM CHLORIDE FLUSH 0.9% 10 ML SYRINGE IVP SCH ×3 (08:35→17:14)
--- NOTE | 2021-12-18 09:33 | XRAY Report ---
PROCEDURE: Chest 1 View X-Ray INDICATIONS: SOB TECHNIQUE: One view of the chest was acquired. COMPARISON: CT chest 12/10/2021, x-ray chest 12/10/2021, 12/02/2021 FINDINGS: Surgical changes and devices: None. Lungs and pleura: There is persistent appearance of opacity within the right hemithorax most prominen t in the right base appearing slightly worse compared to 12/10/2021. Similar appearance is also noted in the left base, slightly more prominent. Mediastinum: Mediastinal contours appear normal. Heart size is normal. Bones and chest wall: No suspicious bony lesions. Overlying soft tissues appear unremarkable. IMPRESSION: Persistent bilateral opacities most consistent with pneumonia, mildly progressive. Underlying areas o f atelectasis and/or edema cannot be excluded. Reviewed by: Blanca Wheeler MD on 12/18/2021 9:32 AM [facility] Approved by: Blanca Wheeler MD on 12/18/2021 9:32 AM [facility] Station ID: [id number]
--- NOTE | 2021-12-18 10:38 | PROVIDER PROGRESS NOTE ---
Assessment/Plan - Problem List (1) Hypernatremia Assessment/Plan: 12/18, resolved. keep hydration to pt with free water as the order, continue lab monitor 12/17 resolved. pt feed himself on today morning breakfast, continue keep hydration and free water for pt. continue lab monitor. consult with social sciences instructor for d/c planning, but pt's Covid 19 test is still positive even pt is asymptomatic now, put pt on difficult position for SNF discharge. Na is 147, slight elevated, on today and still elevated BUN as well. discussed with pt's for keeping pt on hydration when she feed her . order 200 mL cup of water every 4 hours. we start with D5 10/26 NS IVF, lab monitor. (2)hypoglycemia 12/17 resolved. his glucose increased to over 200 at morning, add scheduled insulin plus slide scale, glucose check, hypoglycemia protocol as well. pt show hypoglycemia on previous, today his glucose is 61 at morning. we hold scheduled tid insulin, continue slide scale, and morning lantus. pt's A1c is 9.2. because pt's oral intake was variable significantly, so his glucose control become difficult. (3) NSTEMI (non-ST elevated myocardial infarction) Impression: stable, pt is comfortable rest at bed, Patient is hemodynamic stable. Concern was for NSTEMI given his troponin peaked over 1999. Fortunately his echocardiogram showed no wall motion abnormalities and a preserved ejection fraction. He was treated with therapeutic Lovenox. No aspirin due to his allergy. We have now discontinued Lovenox and will put him on Eliquis given the atrial fibrillation. Continue statin and beta-starla. He will need outpatient follow-up with cardiology. (4) Pneumonia due to COVID-19 virus Impression: 12/18, pt's Covid 19 antigen test is still positive. pt reduced to 90% O2 sat on room air now. But pt has no acute respiratory distress. he was feed for his breakfast without issue. we will closely monitor pt's respiratory status, supplement of O2 as needed, order CXR to monitor. pt finished Covid 19 treatment in the previous. improved. pt has no respiratory distress on room air now. He already completed 7 days of antibiotics. We will continue to monitor his respiratory status. (5) Atrial fibrillation with RVR Impression: his HR is controlled. He developed A. fib with RVR during his admission but is now back in a sinus rhythm. CT angiogram showed no evidence of PE. He was treated with therapeutic Lovenox and metoprolol for his NSTEMI. We will c ontinue metoprolol and switch him to Eliquis, d/c Lovenox. (6) Diabetes mellitus type 2 in nonobese Impression: pt was off decatron. his glucose level varied significantly from his intake meal. Right now his glucose level is stable, will continue morning Lantus, schedule Novolog and slide scale, continue glucose check, hypoglycemia protocol. (7) Advanced dementia Impression: Stable. He has at his baseline. We are continuing his home risperidone and he is being evaluated physical therapy. He will need SNF and we are now working on disposition. social sciences instructor was consulted for placement. (8) Acute respiratory failure with hypoxia Impression: stable. it was secondary to COVID-19 pneumonia. He is now on room air. (9)weakness consult with PT/OT. recommended pt for SNF, possible swing bed. consulted with social sciences instructor for disposition planning. (3) Sepsis Qualifiers: Sepsis type: sepsis due to unspecified organism Sepsis acute organ dysfunction status: unspecified Qualified Code(s): A41.9 - Sepsis, unspecified organism - Current Meds Current Meds: Current Medications Generic Name Dose Route Start Last Admin Trade Name Freq PRN Reason Stop Dose Admin Acetaminophen 650 mg 12/08/21 00:31 12/16/21 19:57 Acetaminophen 325 Mg Tablet PO 650 mg Q4HR PRN Administration Pain or Fever > 38C (100.4F) Apixaban 5 mg 12/15/21 21:00 12/18/21 08:34 Apixaban 5 Mg Tablet PO 5 mg BID ANNY Administration Atorvastatin Calcium 40 mg 12/12/21 21:00 12/17/21 21:12 Atorvastatin 40 Mg Tablet PO 40 mg QPM ANNY Administration Guaifenesin 100 mg 12/08/21 12:58 12/14/21 21:00 Guaifenesin 100 Mg/5 Ml Udc PO 100 mg Q6HR PRN Administration Cough Insulin Aspart 3 - 11 unit 12/16/21 21:00 12/18/21 07:58 Insulin Aspart 300 Unit/3 Ml Pen SUBQ 3 unit 0800,1200,1700,2100 ANNY Administration Protocol Insulin Aspart 3 unit 12/17/21 08:00 12/18/21 07:59 Insulin Aspart 300 Unit/3 Ml Pen SUBQ 3 unit TIDWM ANNY Administration Protocol Insulin Glargine 10 unit 12/17/21 08:00 12/18/21 07:59 Insulin Glargine 300 Unit/3 Ml Pen SUBQ 10 unit QDBREAKFAST ANNY Administration Lisinopril 20 mg 12/13/21 09:00 12/18/21 08:34 Lisinopril 20 Mg Tablet PO 20 mg DAILY ANNY Administration Metoprolol Tartrate 25 mg 12/11/21 01:00 12/18/21 08:32 Metoprolol Tartrate 25 Mg Tablet PO 25 mg BID ANNY Administration Mineral Oil 1 applic 12/13/21 17:18 12/14/21 20:36 Min Oil/Dimethicon/Coconut Oil 92 Gm Tube TOP 1 applic PRN PRN Administration Skin Care Multivitamins/Minerals 1 tab 12/09/21 16:00 12/18/21 08:32 Multivitamin W/Minerals Tablet PO 1 tab DAILYWM ANNY Administration Polyethylene Glycol 17 gm 12/09/21 09:00 12/18/21 08:35 Polyethylene Glycol 3350 17 Gm Packet PO 17 gm DAILY ANNY Administration Risperidone 0.5 mg 12/08/21 21:00 12/17/21 21:11 Risperidone 1 Mg Tablet PO 0.5 mg QPM ANNY Administration Saccharomyces Boulardii 500 mg 12/08/21 08:00 12/18/21 08:34 Saccharomyces Boulardii 250 Mg Capsule PO 500 mg BIDWM ANNY Administration Sodium Chloride 10 ml 12/08/21 00:31 12/14/21 20:44 Sodium Chloride Flush 0.9% 10 Ml Syringe IVP 10 ml PRN PRN Administration NEEDED PER PROVIDER ORDERS Sodium Chloride 10 ml 12/08/21 01:00 12/18/21 08:35 Sodium Chloride Flush 0.9% 10 Ml Syringe IVP 10 ml 0100,0900,1700 ANNY Administration - Lab Result Fish Bone Diagrams: 12/18/21 05:13 12/18/21 05:13 - Additional Planning My Orders: My Active Orders 12/17/21 17:39 Isolation [Infection Precautions] [RC] QSHIFT 12/19/21 05:00 BMP - BASIC METABOLIC PANEL [CHEM] DAILYLAB CBC - COMP BLD CT W/AUTO DIFF [HEME] DAILYLAB 12/20/21 05:00 BMP - BASIC METABOLIC PANEL [CHEM] DAILYLAB CBC - COMP BLD CT W/AUTO DIFF [HEME] DAILYLAB 12/21/21 05:00 BMP - BASIC METABOLIC PANEL [CHEM] DAILYLAB CBC - COMP BLD CT W/AUTO DIFF [HEME] DAILYLAB 12/22/21 05:00 BMP - BASIC METABOLIC PANEL [CHEM] DAILYLAB CBC - COMP BLD CT W/AUTO DIFF [HEME] DAILYLAB Subjective - Subjective Patient Reports: Resting Comfortably Objective Vital Signs: Vital Signs - 24 hr 12/17/21 12/18/21 12/18/21 16:11 00:01 07:55 Temperature 36.4 C L 37.1 C Heart Rate [ 71 65 Brachial] Heart Rate [ 64 Monitoring electrodes] Respiratory 16 18 22 Rate Blood Pressure Blood Pressure 134/53 H 147/73 H 115/52 L [Right Brachial artery] O2 Saturation 98 90 L 90 L 12/18/21 08:32 Temperature Heart Rate [ Brachial] Heart Rate [ Monitoring electrodes] Respiratory Rate Blood Pressure 115/52 L Blood Pressure [Right Brachial artery] O2 Saturation Oxygen O2 Source Room air Oxygen Flow Rate 2 I&O (Last 24 Hrs): Intake and Output Totals x24h 12/16/21 12/17/21 12/18/21 23:59 23:59 23:59 Intake Total 2379.996 1880 320 Balance 2379.996 1880 320 General: Alert, No acute distress HEENT: Atraumatic Neck: Supple Lymphatic: no adenopathy Neuro: Alert, Non Focal Cardiovascular: Regular rate, Normal S1, Normal S2 Respiratory: Chest non-tender, No respiratory distress Abdomen: Normal bowel sounds, Soft Extremities: Normal pulses - Results Results: Laboratory Results WBC 9.2 x10^3/uL (4.8-10.8) 12/18/21 05:13 RBC 4.41 10^6/uL (4.70-6.10) L 12/18/21 05:13 Hgb 12.6 g/dL (14.0-18.0) L 12/18/21 05:13 Hct 39.6 % (42.0-52.0) L 12/18/21 05:13 MCV 89.8 fL (80.0-94.0) 12/18/21 05:13 MCH 28.6 pg (27.0-31.0) 12/18/21 05:13 MCHC 31.8 g/dL (32.0-36.0) L 12/18/21 05:13 RDW 13.5 % (12.0-15.0) 12/18/21 05:13 Plt Count 301 10^3/uL (130-450) 12/18/21 05:13 MPV 9.7 fL (7.4-11.4) 12/18/21 05:13 Neut # (Auto) Not Reportable 12/18/21 05:13 Lymph # (Auto) Not Reportable 12/18/21 05:13 Maries # (Auto) Not Reportable 12/18/21 05:13 Eos # (Auto) Not Reportable 12/18/21 05:13 Baso # (Auto) Not Reportable 12/18/21 05:13 Absolute Nucleated RBC Not Reportable 12/18/21 05:13 Total Counted 100 12/18/21 05:13 Band Neuts % (Manual) 2 % (0-10) 12/18/21 05:13 Abnorm Lymph % (Manual) 0 % 12/18/21 05:13 Myelocytes % 1 % (-0) H 12/16/21 04:42 Nucleated RBC % Not Reportable 12/18/21 05:13 Neutrophils # (Manual) 7.2 10^3/uL (1.5-6.6) H 12/18/21 05:13 Lymphocytes # (Manual) 0.9 10^3/uL (1.5-3.5) L 12/18/21 05:13 Monocytes # (Manual) 0.7 10^3/uL (0.0-1.0) 12/18/21 05:13 Eosinophils # (Manual) 0.3 10^3/uL (0-0.7) 12/18/21 05:13 Basophils # (Manual) 0.1 10^3/uL (0-0.1) 12/18/21 05:13 Differential Comment MANUAL DIFFERENTIAL 12/18/21 05:13 WBC Morphology NORMAL APPEARANCE (NORMAL) 12/16/21 04:42 Platelet Estimate NORMAL (130-450,000) (NORMAL) 12/18/21 05:13 Platelet Morphology NORMAL APPEARANCE (NORMAL) 12/16/21 04:42 RBC Morph Micro Appear NORMAL APPEARANCE (NORMAL) 12/18/21 05:13 D-Dimer 867.2 ng/mL (200.0-255.0) H 12/08/21 05:00 Sodium 141 mmol/L (135-145) 12/18/21 05:13 Potassium 4.4 mmol/L (3.5-5.0) 12/18/21 05:13 Chloride 104 mmol/L (101-111) 12/18/21 05:13 Carbon Dioxide 30 mmol/L (21-32) 12/18/21 05:13 Anion Gap 7.0 (6-13) 12/18/21 05:13 BUN 32 mg/dL (6-20) H 12/18/21 05:13 Creatinine 1.0 mg/dL (0.6-1.2) 12/18/21 05:13 Estimated GFR (MDRD) 72 (>89) L 12/18/21 05:13 Glucose 171 mg/dL (70-100) H 12/18/21 05:13 POC Whole Bld Glucose 142 mg/dL (70 - 100) H 12/18/21 07:53 Estimat Average Glucose 217 mg/dL (70-100) H 12/08/21 00:00 Hemoglobin A1c % 9.2 % (4.27-6.07) H 12/08/21 00:00 Lactic Acid 1.8 mmol/L (0.5-2.2) 12/08/21 01:55 Calcium 8.9 mg/dL (8.5-10.3) 12/18/21 05:13 Phosphorus 3.1 mg/dL (2.5-4.6) 12/08/21 05:00 Magnesium 2.4 mg/dL (1.7-2.8) 12/08/21 05:00 Total Bilirubin 1.3 mg/dL (0.2-1.0) H 12/07/21 22:00 AST 43 IU/L (10-42) H 12/07/21 22:00 ALT 38 IU/L (10-60) 12/07/21 22:00 Alkaline Phosphatase 99 IU/L (42-121) 12/07/21 22:00 Troponin I High Sens 284.2 ng/L (2.3-19.7) H* 12/13/21 08:00 Total Protein 8.1 g/dL (6.7-8.2) 12/07/21 22:00 Albumin 3.3 g/dL (3.2-5.5) 12/07/21 22:00 Globulin 4.8 g/dL (2.1-4.2) H 12/07/21 22:00 Albumin/Globulin Ratio 0.7 (1.0-2.2) L 12/07/21 22:00 Triglycerides 53 mg/dL (-149) 12/12/21 05:51 Cholesterol 102 mg/dL (-199) 12/12/21 05:51 LDL Cholesterol, Calc 55 mg/dL (-129) 12/12/21 05:51 VLDL Cholesterol 11 mg/dL 12/12/21 05:51 HDL Cholesterol 36 mg/dL (60-) L 12/12/21 05:51 LDL/HDL Ratio 1.5 (<3.6) 12/12/21 05:51 Cholesterol/HDL Ratio 2.8 (<5.0) 12/12/21 05:51 Lipase 26 U/L (22-51) 12/07/21 22:00 25-OH Vitamin D Total 64 ng/mL (30-100) 12/07/21 22:00 Urine Color YELLOW 12/08/21 00:30 Urine Clarity CLEAR (CLEAR) 12/08/21 00:30 Urine pH 5.0 PH (5.0-7.5) 12/08/21 00:30 Ur Specific [place] 1.025 (1.002-1.030) 12/08/21 00:30 Urine Protein 100 mg/dL (NEGATIVE) H 12/08/21 00:30 Urine Glucose (UA) >=1000 mg/dL (NEGATIVE) H 12/08/21 00:30 Urine Ketones 15 mg/dL (NEGATIVE) H 12/08/21 00:30 Urine Occult Blood MODERATE (NEGATIVE) H 12/08/21 00:30 Urine Nitrite NEGATIVE (NEGATIVE) 12/08/21 00:30 Urine Bilirubin NEGATIVE (NEGATIVE) 12/08/21 00:30 Urine Urobilinogen 0.2 (NORMAL) E.U./dL (NORMAL) 12/08/21 00:30 Ur Leukocyte Esterase NEGATIVE (NEGATIVE) 12/08/21 00:30 Urine RBC 0-5 /HPF (0-5) 12/08/21 00:30 Urine WBC 0-3 /HPF (0-3) 12/08/21 00:30 Ur Squamous Epith Cells RARE Squamous (<= Few) 12/08/21 00:30 Urine Bacteria Rare /HPF (None Seen) 12/08/21 00:30 Ur Microscopic Review INDICATED 12/08/21 00:30 Urine Culture Comments NOT INDICATED 12/08/21 00:30 Nasal Adenovirus (PCR) NOT DETECTED 12/16/21 16:05 Nasal B. parapertussis DNA (PCR) NOT DETECTED 12/16/21 16:05 Nasal Coronavir 229E PCR NOT DETECTED 12/16/21 16:05 Nasal Coronavir HKU1 PCR NOT DETECTED 12/16/21 16:05 Nasal Coronavir NL63 PCR NOT DETECTED 12/16/21 16:05 Nasal Coronavir OC43 PCR NOT DETECTED 12/16/21 16:05 Nasal Enterovir/Rhinovir PCR NOT DETECTED 12/16/21 16:05 Nasal Influenza B PCR NOT DETECTED 12/16/21 16:05 Nasal Influenza A PCR NOT DETECTED 12/16/21 16:05 Nasal Parainfluen 1 PCR NOT DETECTED 12/16/21 16:05 Nasal Parainfluen 2 PCR NOT DETECTED 12/16/21 16:05 Nasal Parainfluen 3 PCR NOT DETECTED 12/16/21 16:05 Nasal Parainfluen 4 PCR NOT DETECTED 12/16/21 16:05 Nasal RSV (PCR) NOT DETECTED 12/16/21 16:05 Nasal B.pertussis DNA PCR NOT DETECTED 12/16/21 16:05 Nasal C.pneumoniae (PCR) NOT DETECTED 12/16/21 16:05 [place] Human Metapneumo PCR NOT DETECTED 12/16/21 16:05 Nasal M.pneumoniae (PCR) NOT DETECTED 12/16/21 16:05 Nasal SARS-CoV-2 (PCR) DETECTED A 12/16/21 16:05 - Procedures Procedures: Procedures REPLACEMENT OF LEFT LENS WITH SYNTH SUB, PERC APPROACH (03/30/19) REPLACEMENT OF RIGHT LENS WITH SYNTH SUB, PERC APPROACH (01/05/19) Sepsis Event Note (H) - Evaluation Current Stage of Sepsis: Resolved - Sepsis Criteria Sepsis Criteria: Recorded Heart Rate greater than 90 bpm, Respiratory: Increasing oxygen requirements, FENDER MECHANIC: altered consciousness (unrelated to primary neuro pathology), Metabolic: lactate > 2 mmol/L ABX Reporting Has patient been on IV antibiotics over the past 48 hours?: No Current Medications - Current Medications Current Medications: Active Medications Acetaminophen (Acetaminophen 325 Mg Tablet) 650 mg PO Q4HR PRN PRN Reason: Pain or Fever > 38C (100.4F) Last Admin: 12/16/21 19:57 Dose: 650 mg Apixaban (Apixaban 5 Mg Tablet) 5 mg PO BID [facility] Last Admin: 12/18/21 08:34 Dose: 5 mg Atorvastatin Calcium (Atorvastatin 40 Mg Tablet) 40 mg PO QPM [facility] Last Admin: 12/17/21 21:12 Dose: 40 mg Benzonatate (Benzonatate 100 Mg Capsule) 100 mg PO TID PRN PRN Reason: Cough Guaifenesin (Guaifenesin 100 Mg/5 Ml Udc) 100 mg PO Q6HR PRN PRN Reason: Cough Last Admin: 12/14/21 21:00 Dose: 100 mg Insulin Aspart (Insulin Aspart 300 Unit/3 Ml Pen) 3 - 11 unit SUBQ 0800,1200,1700,2100 [facility]; Protocol Last Admin: 12/18/21 07:58 Dose: 3 unit Insulin Aspart (Insulin Aspart 300 Unit/3 Ml Pen) 3 unit SUBQ TIDWM [facility]; Protocol Last Admin: 12/18/21 07:59 Dose: 3 unit Insulin Glargine (Insulin Glargine 300 Unit/3 Ml Pen) 10 unit SUBQ QDBREAKFAST [facility] Last Admin: 12/18/21 07:59 Dose: 10 unit Lisinopril (Lisinopril 20 Mg Tablet) 20 mg PO DAILY [facility] Last Admin: 12/18/21 08:34 Dose: 20 mg Metoprolol Tartrate (Metoprolol Tartrate 25 Mg Tablet) 25 mg PO BID [facility] Last Admin: 12/18/21 08:32 Dose: 25 mg Mineral Oil (Min Oil/Dimethicon/Coconut Oil 92 Gm Tube) 1 applic TOP PRN PRN PRN Reason: Skin Care Last Admin: 12/14/21 20:36 Dose: 1 applic Multivitamins/Minerals (Multivitamin W/Minerals Tablet) 1 tab PO DAILYWM [facility] Last Admin: 12/18/21 08:32 Dose: 1 tab Ondansetron HCl (Ondansetron 4 Mg/2 Ml Vial) 4 mg IVP Q6HR PRN PRN Reason: Nausea / Vomiting Polyethylene Glycol (Polyethylene Glycol 3350 17 Gm Packet) 17 gm PO DAILY [facility] Last Admin: 12/18/21 08:35 Dose: 17 gm Risperidone (Risperidone 1 Mg Tablet) 0.5 mg PO QPM [facility] Last Admin: 12/17/21 21:11 Dose: 0.5 mg Saccharomyces Boulardii (Saccharomyces Boulardii 250 Mg Capsule) 500 mg PO BIDWM [facility] Last Admin: 12/18/21 08:34 Dose: 500 mg Sodium Chloride (Sodium Chloride Flush 0.9% 10 Ml Syringe) 10 ml IVP PRN PRN PRN Reason: NEEDED PER PROVIDER ORDERS Last Admin: 12/14/21 20:44 Dose: 10 ml Sodium Chloride (Sodium Chloride Flush 0.9% 10 Ml Syringe) 10 ml IVP 0100,0900,1700 [facility] Last Admin: 12/18/21 08:35 Dose: 10 ml Trazodone HCl (Trazodone 50 Mg Tablet) 50 mg PO QPM PRN PRN Reason: Insomnia Glimepiride [Amaryl] 4 mg PO DAILYWM 12/07/21 Lisinopril [Zestril] 10 mg PO DAILY 12/07/21 Rosuvastatin Calcium [Crestor] 10 mg PO QPM 12/07/21 risperiDONE [Risperdal] 0.25 mg PO BID 12/07/21
[2021-12-18] MEDS: ATORVASTATIN 40 MG TABLET PO SCH (20:25)
[2021-12-18] MEDS: risperiDONE 1 MG TABLET PO SCH (20:26)
[2021-12-19] MEDS: SODIUM CHLORIDE FLUSH 0.9% 10 ML SYRINGE IVP SCH ×2 (00:45→09:04)
[2021-12-19 05:32] LABS: CALCIUM 9.3 mg/dL (8.5-10.3); CREATININE 0.9 mg/dL (0.6-1.2); POTASSIUM 4.2 mmol/L (3.5-5.0)
[2021-12-19 07:08] LABS: BASOPHILS % (AUTO) 0.4 %; EOSINOPHILS # (AUTO) 0.1 10^3/uL (0.0-0.7); EOSINOPHILS % (AUTO) 1.5 %; HCT - HEMATOCRIT 37.5 % (42.0-52.0); HGB - HEMOGLOBIN 11.9 g/dL (14.0-18.0); LYMPHOCYTES # (AUTO) 0.8 10^3/uL (1.5-3.5); LYMPHOCYTES % (AUTO) 8.2 %; MEAN CORPUSCULAR HEMOGLOBIN 28.5 pg (27.0-31.0); MEAN CORPUSCULAR HGB CONC 31.7 g/dL (32.0-36.0); MEAN CORPUSCULAR VOLUME 89.9 fL (80.0-94.0); MEAN PLATELET VOLUME 10.2 fL (7.4-11.4); MONOCYTES # (AUTO) 0.9 10^3/uL (0.0-1.0); MONOCYTES % (AUTO) 9.2 %; NEUTROPHILS # (AUTO) 7.2 10^3/uL (1.5-6.6); NEUTROPHILS % (AUTO) 76.8 %; PLT - PLATELET COUNT 284 10^3/uL (130-450); RED BLOOD COUNT 4.17 10^6/uL (4.70-6.10); RED CELL DISTRIBUTION WIDTH 13.7 % (12.0-15.0); WHITE BLOOD COUNT 9.4 x10^3/uL (4.8-10.8)
[2021-12-19 08:24] VITALS: BP 148/53
[2021-12-19] MEDS: polyethylene glycoL 3350 17 GM PACKET PO SCH (08:57)
[2021-12-19] MEDS: SACCHAROMYCES BOULARDII 250 MG CAPSULE PO SCH (09:03)
[2021-12-19] MEDS: MULTIVITAMIN W/MINERALS TABLET PO SCH (09:03)
[2021-12-19] MEDS: METOPROLOL TARTRATE 25 MG TABLET PO SCH (09:03)
[2021-12-19] MEDS: lisinopriL 20 MG TABLET PO SCH (09:03)
[2021-12-19] MEDS: APIXABAN 5 MG TABLET PO SCH (09:03)
--- NOTE | 2021-12-19 09:05 | Discharge Plan ---
Discharge Plan Problem Reviewed?: Yes Disposition: 61 Swing Bed DC/Xfer Condition: Stable Prescriptions: traZODone [Desyrel] 50 mg PO QPM PRN #10 tablet PRN Reason: Insomnia Apixaban [Eliquis] 5 mg PO BID #60 tablet Insulin Glargine [Lantus Solostar] 10 unit SUBQ QDBREAKFAST #1 pe Atorvastatin [Lipitor] 40 mg PO QPM #30 tablet Metoprolol Tartrate [Lopressor] 25 mg PO BID #60 tablet Insulin Aspart [NovoLOG] 3 unit SUBQ TIDWM #1 pe Insulin Aspart [NovoLOG] 3 - 11 unit SUBQ 0800,1200,1700,2100 #2 pe Multivitamin W/Minerals [Theragran M] 1 tab PO DAILYWM #30 tablet Diet: Diabetic Activity Restrictions: Activity as Tolerated Shower Restrictions: No (fall precaution) Instruction Topics: Pneumonia, Heart Attack Angina Recognize, COVID-19 [facility] Concerns: Covid 19, Afib with RVR, weakness Plan of Treatment: pt was finished the treatment course for his Covid 19 pneumonia. pt still has positive for Covid 19 in PCR and antigen test. Clinic pt has significantly improved. Now pt has no acute respiratory distress, and pt has 95% O2 sats on room air. Pt had diagnosis of Afib with RVR. Now pt's HR is under of control. pt is prescribed metoprolol and Eliquis. Pt is planning to discharge to Swing bed of [facility] and continuing strength training with PT/OT Care Goals: Stabilization and improvement of patient's medical conditions Assessment: Discussed care plan with the patient's , son and daughter at pt's bedside, Answered all questions, they understood and agreed the care plan. Additional Instructions or Follow Up instructions: pt may continue Swing bed care in [facility]. No Smoking: If you smoke, Please STOP! Call for help. Follow-up with: Hiren Saavedra MD [Primary Care Provider] -
[2021-12-19] MEDS: INSULIN ASPART 300 UNIT/3 ML PEN SUBQ SCH ×2 (09:33)
[2021-12-19] MEDS: INSULIN GLARGINE 300 UNIT/3 ML PEN SUBQ SCH (09:34)
--- NOTE | 2021-12-19 10:28 | DISCHARGE SUMMARY ---
Discharge Summary Admit Date: 12/08/21 Discharge Date: 12/19/21 Discharging Provider: Jonathan Pro Primary Care Provider: Hiren Brunner Condition at Discharge: Stable Discharge Disposition: 61 Swing Bed DC/Xfer Discharge Facility Name: Swing bed [facility] - DIAGNOSES Discharge Diagnoses with Status of Each Condition: (1) Hypernatremia resolved. May keep pt hydration by PO 200ml free water every 4 hours. (2)hypoglycemia resolved. pt may continue to have hypoglycemia protocol. (3) NSTEMI (non-ST elevated myocardial infarction) resolved. pt's echocardiogram showed no wall motion abnormalities and a preserved ejection fraction. pt had significant elevated troponin and ischemic EKG change at his hospital stay. Pt was treated with therapeutic dosage of Lovnox, metoprolol, Lipitor. After treatment, Patient is hemodynamic stable. Patient is prescript metoprolol, Lipitor, Eliquis. pt also developed afib with RVR at hospital stay. He may followup with cardiology as out-pt. (4) Pneumonia due to COVID-19 virus He is now on room air without acute respiratory distress. pt had significantly improved. Pt has no cough or acute respiratory distress now and pt has 95% O2 sat on room air. Pt presented hypoxia with respiratory distress at the admission. Pt was positive for Covid 19. pt finished Covid 19 treatment course. pt was also treated with antibiotics for possible bacteria pneumonia as well in the hospital course. Pt still show antigen positive 12/17/21 and PCR positive for Covid 19 as well. (5) Atrial fibrillation with RVR stable and controlled. his HR is controlled. He developed A. fib with RVR during his admission but is now back in a sinus rhythm. CT angiogram showed no evidence of PE. Pt is prescribed metoprolol and Eliquis. (6) Diabetes mellitus type 2 in nonobese pt's glucose is under good control now. pt's A1C is 9.2. resume pt's home amaryl. pt is prescribed Lantus, slide scale pre-meal insulin Novolog. (7) Advanced dementia Stable. as his hx, resume home meds. (8) Acute respiratory failure with hypoxia He is now on room air without acute respiratory distress. it was likely secondary to COVID-19 pneumonia. (9)weakness consult with PT/OT. recommended pt to swing bed. Now pt is d/c to Swing bed care at [facility]. - HPI History of Present Illness: Refer from Dr. Marlene No's HPI on 12/08/21 This is an 81-year-old male of [place] descent who lives with his at home, has advanced dementia and she is his caregiver. He has a history of diabetes on Amaryl, hypertension on FREDIS inhibitor and takes Risperdal. The patient developed a cough and was brought by his to the ED on Dec 02 (6 days ago) and work- up showed that he was very dehydrated, got 1 L fluid. He had unremarkable vital sugns but a low WBC of 3.5, and a chest x-ray was read as having R-sided pneumonia. A Covid swab was taken and sent out for results. The patient was discharged after he was IV hydrated, since his mentation had come back to his baseline. Over the past 4 days he has continued to have a cough and now has worsening appetite, decreased p.o. intake, and today was spitting out his food and meds and was lethargic and the again brought him to the ED. His labs now show continued prerenal azotemia but not as severe, and in those 4 days his Covid swab has returned back positive. A new chest x-ray done today shows the persistent right-sided infiltrate and a new left-sided infiltrate. His other labs are remarkable for a lactic acid level elevated at 3.9 and elevated anion gap of 17. He is also tachycardic at 111. His initial oxygen saturation was normal on room air and later (possibly after 1 L fluid had already been given), his saturation dropped to 90% on room air and he is now requiring 2 L of oxygen supplemental. The patient is being admitted to treat sepsis from presumed Covid pneumonia and possible community-acquired pneumonia. I spoke to the about management and he is a full code and she would want him to go on a ventilator if it is needed. - ALLERGIES Allergies/Adverse Reactions: Allergies Allergy/AdvReac Type Severity Reaction Status Date / Time aspirin Allergy Unknown Verified 12/07/21 21:59 - MEDICATIONS Home Medications: Ambulatory Orders Medication Instructions Recorded Confirmed Glimepiride [Amaryl] 4 mg PO DAILYWM 12/07/21 12/08/21 Lisinopril [Zestril] 10 mg PO DAILY 12/07/21 12/07/21 risperiDONE [Risperdal] 0.25 mg PO BID 12/07/21 12/08/21 Apixaban [Eliquis] 5 mg PO BID #60 tablet 12/19/21 Atorvastatin [Lipitor] 40 mg PO QPM #30 tablet 12/19/21 Insulin Aspart [NovoLOG] 3 - 11 unit SUBQ 12/19/21 0800,1200,1700,2100 #2 pe Insulin Aspart [NovoLOG] 3 unit SUBQ TIDWM #1 pe 12/19/21 Insulin Glargine [Lantus Solostar] 10 unit SUBQ QDBREAKFAST #1 pe 12/19/21 Metoprolol Tartrate [Lopressor] 25 mg PO BID #60 tablet 12/19/21 Multivitamin W/Minerals [Theragran 1 tab PO DAILYWM #30 tablet 12/19/21 M] traZODone [Desyrel] 50 mg PO QPM PRN #10 tablet 12/19/21 - PHYSICAL EXAM AT DISCHARGE General Appearance: positive: No acute distress, Alert. negative: Lethargic Eyes Bilateral: positive: Normal inspection, No lid inflammation ENT: positive: ENT inspection nml, No signs of dehydration. negative: Purulent nasal drainage Neck: positive: Nml inspection, Trachea midline. negative: Tracheal deviation Respiratory: positive: Chest non-tender, No respiratory distress. negative: Wheezes Cardiovascular: positive: Regular rate & rhythm. negative: Tachycardia, Bradycardia, Systolic murmur Peripheral Pulses: positive: 2+ Abdomen: positive: Non-tender, Nml bowel sounds, No distention. negative: Tenderness Back: positive: Nml inspection Skin: positive: Color nml, Warm, Dry. negative: Cyanosis Extremities: positive: Non-tender, Nml appearance Neurologic/Psychiatric: positive: Sensation nml. negative: Weakness, Sensory loss, Facial droop, Slurred/abnml speech - LABS Result Diagrams: 12/19/21 07:04 12/19/21 04:56 - SEPSIS Current Stage of Sepsis: Resolved Sepsis Criteria: Recorded Heart Rate greater than 90 bpm, Respiratory: Increasing oxygen requirements, CLOTHING SALES ASSISTANT: altered consciousness (unrelated to primary neuro pathology), Metabolic: lactate > 2 mmol/L - FOLLOW UP Follow Up: pt may continue Swing bed care in [facility]. - TIME SPENT Time Spent in Discharge (Minutes): 30
== END 2021-12-19 10:50 | disposition swing bed (61) | DRG 871 ==
LOC: ED 21:37 → MS2 12-08 00:31
PROVIDERS: ADMIT Internal Medicine; ATTEND Nurse Practitioner Gerontology
DX: A41.89 Other specified sepsis (principal); U07.1 COVID-19; J12.82 Pneumonia due to coronavirus disease 2019; I21.4 Non-ST elevation (NSTEMI) myocardial infarction; J96.01 Acute respiratory failure with hypoxia; E87.0 Hyperosmolality and hypernatremia; E10.36 Type 1 diabetes mellitus with diabetic cataract; J90 Pleural effusion, not elsewhere classified; I10 Essential (primary) hypertension; I48.91 Unspecified atrial fibrillation; E11.36 Type 2 diabetes mellitus with diabetic cataract; E11.649 Type 2 diabetes mellitus with hypoglycemia without coma; E78.00 Pure hypercholesterolemia, unspecified; E86.0 Dehydration; F03.90 Unspecified dementia, unspecified severity, without behavioral disturbance, psychotic disturbance, mood disturbance, and anxiety; M10.9 Gout, unspecified; R53.1 Weakness; Z66 Do not resuscitate; Z79.4 Long term (current) use of insulin; Z79.84 Long term (current) use of oral hypoglycemic drugs; Z79.899 Other long term (current) drug therapy; Z87.891 Personal history of nicotine dependence; Z88.8 Allergy status to other drugs, medicaments and biological substances; Z96.649 Presence of unspecified artificial hip joint
CPT/HCPCS: 36415; 71045; 71275; 80048; 80053; 80061; 81001; 82306; 83036; 83605; 83690; 83735; 84100; 84484; 85025; 85379; 87040; 87631; 93005; 93306; 96360; 97162; 97165; 97530; 99283; 99285; A6250; A9270; J1200; J1650; J1815; Q9967; 0202U; 81003; 83721; 87086

== ENCOUNTER 2021-12-18 09:39 | Inpatient (IN) | payer MEDICAID, MEDICARE ==
[2021-12-19] MEDS ORDERED: ACETAMINOPHEN 325 MG TABLET PO PRN (11:34)
[2021-12-19] MEDS ORDERED: traZODone 50 MG TABLET PO PRN (11:44)
[2021-12-19] MEDS: APIXABAN 5 MG TABLET PO SCH (20:24)
[2021-12-19] MEDS: METOPROLOL TARTRATE 25 MG TABLET PO SCH (20:24)
[2021-12-19] MEDS: risperiDONE 0.25 MG TABLET PO SCH (20:24)
[2021-12-19] MEDS: INSULIN GLARGINE 300 UNIT/3 ML PEN SUBQ SCH (20:24)
[2021-12-19] MEDS: ATORVASTATIN 40 MG TABLET PO SCH (20:24)
--- NOTE | 2021-12-20 08:00 | HISTORY & PHYSICAL EXAMINATION ---
Chief Complaint - Chief Complaint Chief Complaint: SNF admission for rehab with PT and OT History of Present Illness - Admitted From Admitted From:: Inpt [facility] - History Obtained From History obtained from: Chart review and Inpt provider, Jonathan Pro NP - History of Present Illness HPI Comment/Other: This is an 81-year-old male of [place] origin who is being admitted to [facility] after being discharged from inpatient status at [facility], yesterday. This patient had presented from home with confusion, lethargy, cough and was diagnosed with a Covid pneumonia. He has DM, HTN, and dementia. During his hospital stay he had rapid A. fib and ruled in for an NSTEMI. An Echocardiogram showed a preserved LVEF. He has dementia and the is his caregiver and spokesperson and no transfer for intervention was requested. The patient was stabilized and had started to do daily PT and OT. 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 He is being admitted for PT and OT rehab to Swing bed. CODE STATUS is DNR. History - Past Medical History Cardiovascular: reports: Hypertension, High cholesterol Respiratory: reports: None Neuro: reports: Dementia Endocrine/Autoimmune: reports: Type 2 diabetes GI: reports: None : reports: Frequency Psych: reports: Other Musculoskeletal: reports: Gout Derm: reports: None MRSA Hx?: No Other Past Medical History: Pt. had NSTEMI while in hospital w/COVID Pneumonia in . - Past Surgical History Ortho: reports: Hip replacement HEENT: reports: Cataracts - Family & Social History Family History: Other family: Alive and Well (3 daughters and 1 son) Living arrangement: At home Living Situation: With spouse/s.o. Social History Notes: He lives with his . She is his caregiver. He no longer drives since the hip surgery. He does not smoke, having quit 20 years ago and he drinks no alcohol. - Substance History Use: Uses substance without health or social issues: NONE - POLST Patient has POLST: No POLST Status: DNR Meds/Allgy - Home Medications Home Medications: Ambulatory Orders Medication Instructions Recorded Confirmed Glimepiride [Amaryl] 4 mg PO DAILYWM 12/07/21 12/08/21 Lisinopril [Zestril] 10 mg PO DAILY 12/07/21 12/07/21 risperiDONE [Risperdal] 0.25 mg PO BID 12/07/21 12/08/21 Apixaban [Eliquis] 5 mg PO BID #60 tablet 12/19/21 Atorvastatin [Lipitor] 40 mg PO QPM #30 tablet 12/19/21 Insulin Aspart [NovoLOG] 3 - 11 unit SUBQ 12/19/21 0800,1200,1700,2100 #2 pe Insulin Aspart [NovoLOG] 3 unit SUBQ TIDWM #1 pe 12/19/21 Insulin Glargine [Lantus Solostar] 10 unit SUBQ QDBREAKFAST #1 pe 12/19/21 Metoprolol Tartrate [Lopressor] 25 mg PO BID #60 tablet 12/19/21 Multivitamin W/Minerals [Theragran 1 tab PO DAILYWM #30 tablet 12/19/21 M] traZODone [Desyrel] 50 mg PO QPM PRN #10 tablet 12/19/21 - Allergies Allergies/Adverse Reactions: Allergies Allergy/AdvReac Type Severity Reaction Status Date / Time aspirin Allergy Unknown Verified 12/07/21 21:59 Review of Systems - All Other Systems All Other Systems: reports: Reviewed and negative (All reviewed with the .) Exam - Vital Signs Vital Signs: Vital Signs x48h Temp Pulse Resp BP Pulse Ox 12/20/21 07:25 36.4 C L 79 16 122/59 L 90 L - Physical Exam General Appearance: positive: No acute distress, Alert Eyes Bilateral: positive: Normal inspection, PERRL, EOMI ENT: positive: ENT inspection nml, No signs of dehydration Neck: positive: Nml inspection, No JVD Respiratory: positive: No respiratory distress, Breath sounds nml Cardiovascular: positive: No murmur, Irregularly irregular Abdomen: positive: Non-tender, Nml bowel sounds, No distention Skin: positive: Warm, Dry Extremities: positive: Non-tender, No pedal edema Neurologic/Psychiatric: positive: Other (Alert. He is oriented x 1 to person only. Non-focal, but has generalized weakness.) Conclusion/Plan - Problem List (1) Weakness Conclusion/Plan: He is very deconditioned. Even before the recent Inpt admission, he was minimally active because of pain in the hip where he had hip surgery. Will order daily PT rehab and continue with OT for rehab. Social work will be requested to help with discharge planning, as to whether he goes home with possibly a hospital bed and DME or may need placement in long-term retirement care. The patient also had trouble with hypernatremia (Na 147) and needed to be encouraged to drink water during the last recent hospitalization. Since electrolyte imbalance may be adding to his weakness, we will check a BMP for the sodium level, now and intermittently. (2) Advanced dementia Conclusion/Plan: As per history. He has a good relationship with his and good memory of their relationship. She is present during his PT sessions in order to interpret for him. Continue with his home medications which were trazodone and desyryl. (3) Diabetes mellitus Conclusion/Plan: Prior to the recent hospitalization, he was only on oral medications for treating his diabetes. As an inpatient, he needed to be started on insulin and is now taking Lantus insulin twice daily and was on mealtime insulin and sliding insulin scale coverage. He did have several episodes of hypoglycemia when his oral intake was not reliable. Continue with hypoglycemia protocol and Accu-Cheks and fingersticks and ss insulin coverage. We will continue to monitor and adjust all his insulin orders for the easiest protocol, in case he goes home and the will have to manage his medication treatment. He is back on his glipizide as well Continue with a diabetic diet. (4) Afib Conclusion/Plan: We will continue with the Eliquis, which was started during the inpatient stay, and continue with his beta-starla, for both post FL treatment and A. fib rate control. (5) Recent myocardial infarction Conclusion/Plan: With his beta-starla dose. Continue with his statin medicine that he was on before hospitalization. He has an aspirin allergy therefore aspirin was never ordered. No transfer for angiography was planned, medical management only. (6) HTN (hypertension) Conclusion/Plan: The patient has good blood pressure control on his FREDIS inhibitor and beta- starla and these will be continued. Qualifiers: Hypertension type: primary hypertension Qualified Code(s): I10 - Essential (primary) hypertension
[2021-12-20] MEDS: INSULIN GLARGINE 300 UNIT/3 ML PEN SUBQ SCH ×2 (08:07→21:23)
[2021-12-20] MEDS: APIXABAN 5 MG TABLET PO SCH ×2 (08:08→21:23)
[2021-12-20] MEDS: risperiDONE 0.25 MG TABLET PO SCH ×2 (08:08→21:22)
[2021-12-20] MEDS: GLIMEPIRIDE 2 MG TABLET PO SCH (08:08)
[2021-12-20] MEDS: METOPROLOL TARTRATE 25 MG TABLET PO SCH ×2 (08:08→21:22)
[2021-12-20] MEDS: MULTIVITAMIN W/MINERALS TABLET PO SCH (08:08)
[2021-12-20] MEDS ORDERED: lisinopriL 5 MG TABLET PO SCH (09:00)
[2021-12-20 09:23] LABS: CALCIUM 9.1 mg/dL (8.5-10.3); CREATININE 1.1 mg/dL (0.6-1.2); POTASSIUM 3.9 mmol/L (3.5-5.0)
[2021-12-20] MEDS: ATORVASTATIN 40 MG TABLET PO SCH (21:23)
[2021-12-21] MEDS: INSULIN GLARGINE 300 UNIT/3 ML PEN SUBQ SCH ×2 (10:24→20:53)
[2021-12-21] MEDS: MULTIVITAMIN W/MINERALS TABLET PO SCH (11:40)
[2021-12-21] MEDS: APIXABAN 5 MG TABLET PO SCH ×2 (11:40→20:52)
[2021-12-21] MEDS: risperiDONE 0.25 MG TABLET PO SCH ×2 (11:40→20:52)
[2021-12-21] MEDS: GLIMEPIRIDE 2 MG TABLET PO SCH (11:40)
[2021-12-21] MEDS: METOPROLOL TARTRATE 25 MG TABLET PO SCH ×2 (11:41→20:52)
[2021-12-21] MEDS: lisinopriL 5 MG TABLET PO SCH (11:41)
[2021-12-21] MEDS: ATORVASTATIN 40 MG TABLET PO SCH (20:52)
[2021-12-22] MEDS: lisinopriL 5 MG TABLET PO SCH (08:06)
[2021-12-22] MEDS: risperiDONE 0.25 MG TABLET PO SCH ×2 (08:07→20:49)
[2021-12-22] MEDS: MULTIVITAMIN W/MINERALS TABLET PO SCH (08:07)
[2021-12-22] MEDS: METOPROLOL TARTRATE 25 MG TABLET PO SCH ×3 (08:07→20:51)
[2021-12-22] MEDS: APIXABAN 5 MG TABLET PO SCH ×2 (08:07→20:50)
[2021-12-22] MEDS: GLIMEPIRIDE 2 MG TABLET PO SCH (08:07)
[2021-12-22] MEDS: INSULIN GLARGINE 300 UNIT/3 ML PEN SUBQ SCH ×3 (08:09→20:53)
[2021-12-22] MEDS: INSULIN ASPART 300 UNIT/3 ML PEN SUBQ SCH ×3 (11:52→20:53)
[2021-12-22] MEDS: ATORVASTATIN 40 MG TABLET PO SCH (20:50)
[2021-12-23] MEDS: GLIMEPIRIDE 2 MG TABLET PO SCH (08:40)
[2021-12-23] MEDS: APIXABAN 5 MG TABLET PO SCH ×2 (08:40→21:11)
[2021-12-23] MEDS: MULTIVITAMIN W/MINERALS TABLET PO SCH (08:40)
[2021-12-23] MEDS: lisinopriL 5 MG TABLET PO SCH (08:41)
[2021-12-23] MEDS: INSULIN GLARGINE 300 UNIT/3 ML PEN SUBQ SCH ×2 (08:41→21:11)
[2021-12-23] MEDS: METOPROLOL TARTRATE 25 MG TABLET PO SCH ×2 (08:42→21:11)
[2021-12-23] MEDS: risperiDONE 0.25 MG TABLET PO SCH ×2 (08:42→21:12)
[2021-12-23] MEDS: INSULIN ASPART 300 UNIT/3 ML PEN SUBQ SCH ×4 (08:43→21:11)
[2021-12-23 09:14] LABS: ABG BASE EXCESS 3.9 mmol/L (-2.0-3.0); ABG HCO3 26.4 mmol/L (22.0-26.0); ABG PCO2 33 mmHg (34-45); ABG PH 7.53 (7.35-7.45); ABG TCO2 27.4 MMOL/L (21.0-29.0); ALLEN TEST POSITIVE
[2021-12-23 09:23] LABS: ABG OXYGEN SATURATION 80 % (94-98); ABG PO2 41 mmHg (80-100)
--- NOTE | 2021-12-23 09:26 | XRAY Report ---
PROCEDURE: Chest 1 View X-Ray INDICATIONS: new hypoxemia TECHNIQUE: One view of the chest was acquired. COMPARISON: 12/18/2021 FINDINGS: Surgical changes and devices: None. Lungs and pleura: Small bilateral pleural effusion is again seen more prominent on the right side. Il l-defined airspace opacities are again seen scattered throughout bilateral lung pete also more prom inent on the right side not significantly changed from previous study. No gross pneumothorax. Mild pu lmonary edema is likely present. Mediastinum: Mediastinal contours appear normal. Heart size is normal. Bones and chest wall: No suspicious bony lesions. Overlying soft tissues appear unremarkable. IMPRESSION: Persistent right greater than left bilateral pleural effusion and bilateral patchy pulmonary infiltra fide. No gross pneumothorax. Mild pulmonary edema. Reviewed by: Arpit Petty MD on 12/23/2021 9:25 AM PST Approved by: Arpit Petty MD on 12/23/2021 9:25 AM PST Station ID: [id number]
--- NOTE | 2021-12-23 15:13 | CONSULTATION NOTE ---
Palliative Care Consultation - Referral Referring Provider: Marlene Hernandez MD Time of Visit: [id number]; [id number] Referral setting: Senior Care Facility (SWING BED) Referral Reason: Dementia/Frailty/Goals of Care - Information Sources Records reviewed: RN notes reviewed, Previous records reviewed History/Review of Systems obtained from: Patient, Family (spoke with daugther Tiffanie guan and son Ben (visiting from [place])) Exam limitations: Clinical condition (patient with fluctuating mental status; known dementia), Language barrier (speaks Tagalog) - History of Present Illness Brief History of Present Illness: This is an 81-year-old [place] gentleman who speaks only Tagalog, he was acutely hospitalized, for acute pneumonia due to COVID-19, and STEMI, atrial fib with RVR, and worsening dementia. He remains very frail, and has been discharged to a "swing bed".He has been receiving physical therapy and Occupational Therapy, with the hopes to return home with improved functional status. Palliative care was asked to consult for goals of care, and transition planning.I have attempted to meet with twice she comes in to visit patient, but we have not met up, last time she left me a message to speak with her daughter Laxmi. On examination, patient has been fluctuating with mental status, and alertness. He does follow gestures, but is fearful of falling, postures are difficult as far as his ability most likely return to ambulatory status. He is able to self feed, but does need encouragement. I did follow-up with his daughter Laxmi to get a sense of his stage of dementia. Reports he has been having more forgetfulness but more of an acute change in August, and certainly currently is more confused coming in and out of awareness of family members, location, and discussed at length expected continued trajectory given his decline in functional and cognitive status overall.Patient has been cared for by his , who has continued to work, they do have a roommate that is also a caregiver. Medical/Surgical History - Past Medical History Cardiovascular: reports: Congestive heart failure, Hypertension, High cholesterol, NM, Atrial fibrillation Respiratory: reports: Pneumonia (COVID 19) Neuro: Dementia Endocrine/Autoimmune: reports: Type 2 diabetes GI: reports: None : reports: Incontinence (since 09/14), Frequency Musculoskeletal: reports: Gout Derm: reports: None MRSA Hx?: No - Past Surgical History Ortho: reports: Hip replacement HEENT: reports: Cataracts - Substance History Use: Uses substance without health or social issues: NONE Social History - Living Situation Living arrangement: At home Living Situation: With spouse/s.o. Support System: Patient lives at home with his , who works as a caregiver. They are from the [facility]. Do not have significant amount of history on them, I did speak with the daughter though, reports they have a roommate who is also a caregiver. He does have 3 daughters and a son, Nadia has been the he point of connection as far as navigating some of this. His son from [place] is currently present, and was part of the family conference with the daughter. Family History - Family History Family History: Mother: , Father: Medications/Allergies - Medications Active Medication List: Active Medications Acetaminophen (Acetaminophen 325 Mg Tablet) 650 mg PO Q4HR PRN PRN Reason: Pain or Fever > 38C (100.4F) Apixaban (Apixaban 5 Mg Tablet) 5 mg PO BID [facility] Last Admin: 12/23/21 08:40 Dose: 5 mg Atorvastatin Calcium (Atorvastatin 40 Mg Tablet) 40 mg PO QPM [facility] Last Admin: 12/22/21 20:50 Dose: 40 mg Glimepiride (Glimepiride 2 Mg Tablet) 4 mg PO DAILYWM [facility] Last Admin: 12/23/21 08:40 Dose: 4 mg Insulin Aspart (Insulin Aspart 300 Unit/3 Ml Pen) 1 - 9 unit SUBQ 0800,1200,1700,2100 [facility]; Protocol Last Admin: 12/23/21 11:23 Dose: Not Given Insulin Glargine (Insulin Glargine 300 Unit/3 Ml Pen) 7 unit SUBQ BID [facility] Last Admin: 12/23/21 08:41 Dose: 7 unit Lisinopril (Lisinopril 5 Mg Tablet) 2.5 mg PO DAILY [facility] Last Admin: 12/23/21 08:41 Dose: 2.5 mg Metoprolol Tartrate (Metoprolol Tartrate 25 Mg Tablet) 25 mg PO BID [facility] Last Admin: 12/23/21 08:42 Dose: 25 mg Multivitamins/Minerals (Multivitamin W/Minerals Tablet) 1 tab PO DAILYWM [facility] Last Admin: 12/23/21 08:40 Dose: 1 tab Risperidone (Risperidone 0.25 Mg Tablet) 0.25 mg PO BID [facility] Last Admin: 12/23/21 08:42 Dose: 0.25 mg Trazodone HCl (Trazodone 50 Mg Tablet) 50 mg PO QPM PRN PRN Reason: Insomnia Last Admin: 12/20/21 21:23 Dose: 50 mg Glimepiride [Amaryl] 4 mg PO DAILYWM 12/07/21 Lisinopril [Zestril] 10 mg PO DAILY 12/07/21 risperiDONE [Risperdal] 0.25 mg PO BID 12/07/21 - Allergies Allergies/Adverse Reactions: Allergies Allergy/AdvReac Type Severity Reaction Status Date / Time aspirin Allergy Unknown Verified 12/07/21 21:59 Review of Systems - Constitutional Constitutional: reports: Fatigue, Poor appetite, Weight loss - Ears, Nose & Throat Ears, Nose & Throat: reports: Hearing loss - Cardiovascular Cardiovascular: reports: Irregular heart rate, Exertional dyspnea, Decr. exercise tolerance - Respiratory Respiratory: reports: SOB with exertion - Genitourinary Genitourinary: reports: Incontinence - Musculoskeletal Musculoskeletal: reports: Stiffness, Muscle weakness, Assistive devices (working with walker for ambulation), Transfer issues (max assistance for transfers) - Integumentary Integumentary: reports: Dryness - Neurological Neurological: reports: General weakness, Memory problems - Endocrine Endocrine: reports: Diabetes type 2 - Hematologic/Lymphatic Hematologic/Lymph: reports: Anemia, Recurrent infections (recent covid19) - All Other Systems All Other Systems: reports: Other (difficult to obtain related to language barriers/dementia/MENOMINEE) Physical Exam - Vital Signs Vital Signs: Vital Signs x48h Temp Pulse Resp BP BP Pulse Ox 12/23/21 08:42 127/44 L 12/23/21 08:15 82 94 12/23/21 07:50 37.3 C 68 16 120/42 L 89 L - Physical Exam General Appearance: positive: No acute distress, Lethargic Eyes Bilateral: positive: Other (keeps eyes closed most of visit) Neck: positive: Trachea midline Cardiovascular: positive: Irregular Respiratory: positive: Diminished in bases. negative: No respiratory distress (RR effort with activity), Wheezes Abdomen: positive: Soft Skin: positive: Pallor, Dryness Neurologic/Psychiatric: positive: Slurred/abnml speech, Flat affect, Other (ap pears disorientated x 3 with some interputation) Palliative Care - POLST Patient has POLST: No POLST Status: DNR Performance Status: Patient more lethargic in the morning, noted perks up around his . He is working with PT/OT with hopes to improve transfers and functional status with goal to return home. - Palliative Care Discussion: Had attempted to meet with x2, had defer to daughter Laxmi. Family conference held on phone with daughter Laxmi who lives nearby, and son Luz lives in [place] who is here for the week. They are trying to clean out a space, alluding to mild hoarding behaviors of mother. They are not able to afford long-term care placement, at this point expecting him to discharge home. They do have a "roommate" who also does caregiving, is a caregiver but would not be able to manage him if he were to have a fall, or there is significant concern about his increased care needs. They are trying to set it up so it is wheelchair accessible, they will need equipment. Will follow up with physical therapy if believe we can order it through his insurance, otherwise will need numbers to [employer] for support.I suspect patient would benefit from wheelchair, hospital bed, bedside commode, and shower chair. I would order home health for RN/PT/OT on discharge for support and transition planning. Did introduce the disease trajectory, my worry about patient coming back to the hospital if he were to decline more. We discussed in the context of quality of life, it is very difficult for him to be here with language barrier, is much more happy at home, most likely expected to have continued decline into the future. They do believe her their mother was quite fearful about his demise, and will talk to her about long-term goals. We did discuss the continuum of care, which could include hospice if he were to decline further, so he could have a natural at home. They feel this would be most congruent with their goals for their father, but will follow up with their mother. We did discuss palliative care could follow in the home setting, to identify this transition point, and decrease likelihood of rehospitalization. Both are in agreement this would not be in patient's best interest as he declines.Will attempt to make contact again with , and follow through on POLST, as he will need this for transition home. I did share it has been challenging to progress him further, they would like him to stay as long as insurance will extend his stay for support, in the context of the ability to get the home in order, and prepare for caregiving at home.Would make home health referral DUC though in the context of the current queue for services Results - Lab Results Lab results reviewed: Yes Fish Bones: 12/20/21 08:57 Lab and Imaging Results: Lab Results x24hrs 12/23/21 12/23/21 12/23/21 Range/Units 11:16 08:55 07:46 Bld Gas Analysis Time 0902 Sample Site RIGHT BRACHIAL ABG pH 7.53 H (7.35-7.45) ABG pCO2 33 L (34-45) mmHg ABG pO2 41 L* (80-100) mmHg ABG HCO3 26.4 H (22.0-26.0) mmol/L ABG Total CO2 27.4 (21.0-29.0) MMOL/L ABG O2 Saturation 80 L* (94-98) % ABG Base Excess 3.9 H (-2.0-3.0) mmol/L David Test POSITIVE O2 Delivery Device ROOM AIR POC Whole Bld Glucose 107 H 92 (70 - 100) mg/dL 12/22/21 Range/Units 16:35 Bld Gas Analysis Time Sample Site ABG pH (7.35-7.45) ABG pCO2 (34-45) mmHg ABG pO2 (80-100) mmHg ABG HCO3 (22.0-26.0) mmol/L ABG Total CO2 (21.0-29.0) MMOL/L ABG O2 Saturation (94-98) % ABG Base Excess (-2.0-3.0) mmol/L David Test O2 Delivery Device POC Whole Bld Glucose 209 H (70 - 100) mg/dL Impression and Recommendations - Palliative Care Impression: This is an 81-year-old [place] gentleman, who has recovered from Covid pneumonia, altered mental status, but continues to show signs of progressive dementia. Unfortunately he has had functional decline as well as cognitive decline. Palliative care has been asked to consult regarding clarifying goals o f care. Recommendations/Counseling Done: 1. Generalized weakness. Patient has continue to work with OT/PT with continued focus on improving strength and safety. Patient would benefit from home health transition, for home safety, equipment training, transfer training, and home management. Patient will need equipment, will have PT/OT evaluate if insurance does not pay, will need #[address] as soon as possible. Daughter and son are setting up space to be able to accommodate wheelchair for mobility if needed. 2. Dementia. Unclear if patient is having behavioral disturbances with this, will see how transitions back home. Counseling provided to daughter and son regarding expected trajectory of decline, recommended ongoing palliative care approach given patient's adjustment to hospitalization. Would recommend continued focus on quality of life issues, will revisit POLST with , and goals of care. Daughter and son will speak with , regarding our family conference. often uses daughter as conduit for information and decision- making. 45 minutes with greater than 50% of this done with counseling related anticipatory guidance, family conference, education on disease trajectory, and transition planning
[2021-12-23] MEDS: ATORVASTATIN 40 MG TABLET PO SCH (21:11)
[2021-12-24] MEDS: INSULIN ASPART 300 UNIT/3 ML PEN SUBQ SCH ×4 (08:10→21:22)
[2021-12-24] MEDS: risperiDONE 0.25 MG TABLET PO SCH ×2 (08:11→21:33)
[2021-12-24] MEDS: MULTIVITAMIN W/MINERALS TABLET PO SCH (08:11)
[2021-12-24] MEDS: GLIMEPIRIDE 2 MG TABLET PO SCH (08:11)
[2021-12-24] MEDS: METOPROLOL TARTRATE 25 MG TABLET PO SCH ×2 (08:11→21:32)
[2021-12-24] MEDS: lisinopriL 5 MG TABLET PO SCH (08:12)
[2021-12-24] MEDS: APIXABAN 5 MG TABLET PO SCH ×2 (08:13→21:32)
[2021-12-24] MEDS: INSULIN GLARGINE 300 UNIT/3 ML PEN SUBQ SCH ×2 (08:13→21:32)
--- NOTE | 2021-12-24 17:55 | PROVIDER PROGRESS NOTE ---
Subjective - Prog Note Date Prog Note Date: 12/24/21 Prog Note Time: 17:52 - Subjective Subjective: Today nursing reported that he was hypoxic to 80. But on recheck of a different body part, he was normal at 92% for him. I went ahead and did an chest x-ray which shows bilateral pleural effusions that are stable. Not increased in size. Vital signs were normal. When I examined him, he was not opening his eyes and would resist my touching his eyelids. At one point I did a Babinski and that woke him up and he was quite annoyed at that. Unfortunately there is a language barrier and I did not know what he was saying. Today, physical therapy tells me that he is resisting working with him. He had worked really well with him December 19. Over the weekend he does seem to get less resistant to working with him and by yesterday was not working with them. He is not progressing. Current Medications - Current Medications Current Medications: Active Medications Acetaminophen (Acetaminophen 325 Mg Tablet) 650 mg PO Q4HR PRN PRN Reason: Pain or Fever > 38C (100.4F) Apixaban (Apixaban 5 Mg Tablet) 5 mg PO BID [facility] Last Admin: 12/24/21 08:13 Dose: 5 mg Atorvastatin Calcium (Atorvastatin 40 Mg Tablet) 40 mg PO QPM [facility] Last Admin: 12/23/21 21:11 Dose: 40 mg Glimepiride (Glimepiride 2 Mg Tablet) 4 mg PO DAILYWM [facility] Last Admin: 12/24/21 08:11 Dose: 4 mg Insulin Aspart (Insulin Aspart 300 Unit/3 Ml Pen) 1 - 9 unit SUBQ 0800,1200,1700,2100 [facility]; Protocol Last Admin: 12/24/21 17:05 Dose: 5 unit Insulin Glargine (Insulin Glargine 300 Unit/3 Ml Pen) 7 unit SUBQ BID [facility] Last Admin: 12/24/21 08:13 Dose: 7 unit Lisinopril (Lisinopril 5 Mg Tablet) 2.5 mg PO DAILY [facility] Last Admin: 12/24/21 08:12 Dose: 2.5 mg Metoprolol Tartrate (Metoprolol Tartrate 25 Mg Tablet) 25 mg PO BID [facility] Last Admin: 12/24/21 08:11 Dose: 25 mg Multivitamins/Minerals (Multivitamin W/Minerals Tablet) 1 tab PO DAILYWM [facility] Last Admin: 12/24/21 08:11 Dose: 1 tab Risperidone (Risperidone 0.25 Mg Tablet) 0.25 mg PO BID [facility] Last Admin: 12/24/21 08:11 Dose: 0.25 mg Trazodone HCl (Trazodone 50 Mg Tablet) 50 mg PO QPM PRN PRN Reason: Insomnia Last Admin: 12/20/21 21:23 Dose: 50 mg Glimepiride [Amaryl] 4 mg PO DAILYWM 12/07/21 Lisinopril [Zestril] 10 mg PO DAILY 12/07/21 risperiDONE [Risperdal] 0.25 mg PO BID 12/07/21 Objective - Vital Signs/Intake & Output Reviewed Vital Signs: Yes Vital Signs: Vital Signs x48h Temp Pulse Resp BP Pulse Ox 12/24/21 15:30 36.6 C 87 16 123/62 95 12/24/21 13:40 77 22 97 Intake & Output: Intake & Output 12/21/21 12/22/21 12/23/21 12/24/21 23:59 23:59 23:59 23:59 Intake Total 600 1090 340 300 Output Total 200 100 Balance 600 890 240 300 - Objective General Appearance: positive: Other (Short statured Georgian male, slightly furrowed brow, eyes are closed and wrinkled and he refuses to open them for me.He is eating 75% of his food.) Eyes Bilateral: positive: PERRL, EOMI ENT: positive: Pharynx nml Neck: positive: No JVD Respiratory: positive: No respiratory distress, Other (dull bases). negative: Wheezes, Rales, Rhonchi Cardiovascular: positive: Regular rate & rhythm, Systolic murmur. negative: Gallop/S4, Friction rub Abdomen: positive: Non-tender, No organomegaly, Nml bowel sounds Skin: positive: Warm, Dry Extremities: positive: Full ROM, No pedal edema Neurologic/Psychiatric: positive: Other (He is silent. Refusing to speak. Eyes remains firmly shut. His only reaction to my trying to position him for exam is to resist the exam.) - Lab Results Fish Bones: 12/20/21 08:57 Other Labs: Lab Results x24hrs 0312/24/21 12/24/21 Range/Units 16:32 11:29 07:18 POC Whole Bld Glucose 270 H 163 H 114 H (70 - 100) mg/dL 12/23/21 Range/Units 20:17 POC Whole Bld Glucose 234 H (70 - 100) mg/dL ABX Reporting Has patient been on IV antibiotics over the past 48 hours?: No Assessment/Plan - Problem List (1) Weakness Impression: he was minimally active because of pain in the hip where he had hip surgery.He has advanced dementia, lives with his and she takes care of him. Seen December 02 and showed dehydration, a low white cell count, right-sided pneumonia, and was sent home from the ER. Returned December 08 with further lethargy, dehydration and Covid positive. Worsening right-sided infiltrate and new left infiltrate. Went on to have an NSTEMI. He developed significant weakness with stay superimposed on an already sedentary male. PT rehab and OT for rehab ordered and they are working with him but he is not doing well the last 2 days. At care conference today, Social work requested to help with discharge planning, as to whether he goes home with possibly a hospital bed and DME or may need placement in long-term senior living care. The patient also had trouble with hypernatremia (Na 147) and needed to be encouraged to drink water during the last recent hospitalization. We checked on Swing bed admit and he was 142. Will recheck CBC and BMP. (2) Advanced dementia Conclusion/Plan: As per history. He has a good relationship with his and good memory of th eir relationship. She is off and on present during his PT sessions in order to interpret for him. Continue with his home medications which were trazodone and desyryl. (3) Diabetes mellitus Conclusion/Plan: Prior to the recent hospitalization, he was only on oral medications for treating his diabetes. As an inpatient, he needed to be started on insulin and is now taking Lantus insulin twice daily and was on mealtime insulin and sliding insulin scale coverage. He did have several episodes of hypoglycemia when his oral intake was not reliable.He is back on his glipizide as well Review of glucose on December 22 shows glucose in the 200s. On December when he became hypoglycemic to 92 and then rebounded to 234 by that night. This morning he is 114, 163, and by afternoon 270. Continue with hypoglycemia protocol and Accu-Cheks and fingersticks and ss i nsulin coverage. Continue with a diabetic diet. I will add 4 units with dinner meal of short acting insulin (4) Afib Conclusion/Plan: Rate is controlled. On Eliquis, which was started during the inpatient stay, and continue with his beta-starla, for both post VA treatment and A. fib rate control. (5) Recent myocardial infarction Conclusion/Plan: With his beta-starla dose. Continue with his statin medicine that he was on before hospitalization. He has an aspirin allergy therefore aspirin was never ordered. No transfer for angiography was planned, medical management only. (6) HTN (hypertension) Conclusion/Plan: The patient has good blood pressure control. Blood pressure has been 116-123 for last 24 hours. His FREDIS inhibitor and beta-starla will be continued. Qualifiers: Hypertension type: primary hypertension Qualified Code(s): I10 - Essential (primary) hypertension
[2021-12-24] MEDS: ATORVASTATIN 40 MG TABLET PO SCH (21:32)
[2021-12-25] MEDS: METOPROLOL TARTRATE 25 MG TABLET PO SCH ×2 (08:14→21:58)
[2021-12-25] MEDS: risperiDONE 0.25 MG TABLET PO SCH ×2 (08:14→21:59)
[2021-12-25] MEDS: GLIMEPIRIDE 2 MG TABLET PO SCH (08:14)
[2021-12-25] MEDS: MULTIVITAMIN W/MINERALS TABLET PO SCH (08:16)
[2021-12-25] MEDS: INSULIN ASPART 300 UNIT/3 ML PEN SUBQ SCH ×4 (08:16→21:49)
[2021-12-25] MEDS: APIXABAN 5 MG TABLET PO SCH ×2 (08:16→21:58)
[2021-12-25] MEDS: lisinopriL 5 MG TABLET PO SCH (08:16)
[2021-12-25] MEDS: INSULIN GLARGINE 300 UNIT/3 ML PEN SUBQ SCH ×2 (08:24→21:58)
[2021-12-25] MEDS: ATORVASTATIN 40 MG TABLET PO SCH (21:58)
[2021-12-26] MEDS: GLIMEPIRIDE 2 MG TABLET PO SCH (07:48)
[2021-12-26] MEDS: MULTIVITAMIN W/MINERALS TABLET PO SCH (07:48)
[2021-12-26] MEDS: INSULIN GLARGINE 300 UNIT/3 ML PEN SUBQ SCH ×2 (07:49→20:37)
[2021-12-26] MEDS: INSULIN ASPART 300 UNIT/3 ML PEN SUBQ SCH ×4 (07:49→20:35)
[2021-12-26] MEDS: lisinopriL 5 MG TABLET PO SCH (08:25)
[2021-12-26] MEDS: risperiDONE 0.25 MG TABLET PO SCH ×2 (08:25→20:32)
[2021-12-26] MEDS: METOPROLOL TARTRATE 25 MG TABLET PO SCH ×2 (08:25→20:31)
[2021-12-26] MEDS: APIXABAN 5 MG TABLET PO SCH ×2 (08:27→20:32)
[2021-12-26] MEDS ORDERED: DEXTROSE GEL 37.5 GM TUBE ONE (16:55)
[2021-12-26] MEDS: ATORVASTATIN 40 MG TABLET PO SCH (20:32)
[2021-12-27] MEDS: GLIMEPIRIDE 2 MG TABLET PO SCH (09:01)
[2021-12-27] MEDS: INSULIN ASPART 300 UNIT/3 ML PEN SUBQ SCH ×4 (09:01→20:52)
[2021-12-27] MEDS: METOPROLOL TARTRATE 25 MG TABLET PO SCH ×2 (09:02→20:25)
[2021-12-27] MEDS: INSULIN GLARGINE 300 UNIT/3 ML PEN SUBQ SCH (09:02)
[2021-12-27] MEDS: MULTIVITAMIN W/MINERALS TABLET PO SCH (09:02)
[2021-12-27] MEDS: lisinopriL 5 MG TABLET PO SCH (09:04)
[2021-12-27] MEDS: APIXABAN 5 MG TABLET PO SCH ×2 (09:05→20:25)
[2021-12-27] MEDS: risperiDONE 0.25 MG TABLET PO SCH ×2 (09:05→20:26)
[2021-12-27] MEDS: ATORVASTATIN 40 MG TABLET PO SCH (20:26)
--- NOTE | 2021-12-28 07:26 | Discharge Plan ---
Discharge Plan Problem Reviewed?: Yes Disposition: Home Health Service Condition: Fair Prescriptions: lisinopriL [Zestril] 2.5 mg PO DAILY #30 tablet Diet: Diabetic Activity Restrictions: Activity as Tolerated Shower Restrictions: No Driving Restrictions: Yes (no driving) Assistance Devices: Wheelchair, Walker Health Concerns: You have been discharged from swing bed status which is same as if you have been discharged from a [facility] bed. You are unable to progress with physical therapy and as such no longer meet the criteria that allow you to stay here in swing bed. You were weak because you were admitted December 08 with Covid pneumonia, dehydration, and severe infection response. After being treated for the pneumonia, you also developed a small heart attack. Once everything was done you were too weak to go home and you needed to be strengthened with physical therapy. You were admitted to physical therapy swing bed status on December 19. You did quite well initially and have been able to progress slowly but in the last few days you have decided that you really just cannot do this anymore. Your has decided to take you home. Plan of Treatment: Please see your primary care provider, Dr. Hiren Saavedra in the next 2 weeks if at all possible.We have ordered home health services for you. We would like the nurse to see you because of your diabetes. While here you required quite a bit of insulin to control your sugar. But in the last few days we have gone down on her insulin dose to Your normal routine of 10 units of long-acting insulin once a day and 3 units of short acting insulin before meals. Your blood pressure has been a little bit low so we reduced your lisinopril from 10 mg a day to 2.5 mg a day. In addition to the home health nurse making sure that your glucose and blood pressure are okay, we have also ordered a bath aide to help your with bathing you during the week. We have requested that physical therapy and Occupational Therapy continue to see you. We have also asked for social work consult to see you to help your identify if there are any other needs that you have, or other opportunities where we can help you Stay safely at home. Care Goals: Hopefully you will be able to do some physical therapy at home. This would allow you to sit, stand, and take a few steps. This would be very helpful for your . No Smoking: If you smoke, Please STOP! Call for help. Follow-up with: Hiren Saavedra MD [Primary Care Provider] -
--- NOTE | 2021-12-28 07:54 | DISCHARGE SUMMARY ---
"Discharge Summary Admit Date: 12/19/21 Discharge Date: 12/28/21 Discharging Provider: Leonila Stewart MD Primary Care Provider: Hiren Saavedra MD Code Status: Do Not Attempt Resuscitation Condition at Discharge: Fair Discharge Disposition: 06 Home Health Service - DIAGNOSES Discharge Diagnoses with Status of Each Condition: 1. Generalized weakness after hospital stay 2. Advanced dementia 3. Type 2 diabetes mellitus, with complications of neuropathy and retinopathy, on long-term insulin, controlled 4. Chronic atrial fibrillation 5. History of NSTEMI 6. Hypertension - HPI History of Present Illness: This is an 81-year-old male of Turkmen origin who is being admitted to [facility] after being discharged from inpatient status at [facility], yesterday. This patient had presented from home with confusion, lethargy, cough and was diagnosed with a Covid pneumonia. He has DM, HTN, and dementia. During his hospital stay he had rapid A. fib and ruled in for an NSTEMI. An Echocardiogram showed a preserved LVEF. He has dementia and the is his caregiver and spokesperson and no transfer for intervention was requested. The patient was stabilized and had started to do daily PT and OT. 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 He is being admitted for PT and OT rehab to Swing bed. CODE STATUS is DNR. - Past Medical History Cardiovascular: reports: Hypertension, High cholesterol Respiratory: reports: None Neuro: reports: Dementia Endocrine/Autoimmune: reports: Type 2 diabetes GI: reports: None : reports: Frequency Psych: reports: Other Musculoskeletal: reports: Gout Derm: reports: None MRSA Hx?: No Other Past Medical History: Pt. had NSTEMI while in hospital w/COVID Pneumonia in . - Past Surgical History Ortho: reports: Hip replacement HEENT: reports: Cataracts - CONSULTS | PROCEDURES Consultations: IJEOMA Koroma with palliative care Procedures: Chest x-ray with persistent right greater than left bilateral effusion and bilateral patchy infiltrates done on December 23 and compared to 12/18/21 and unchanged - HOSPITAL COURSE Hospital Course: The patient was seen by physical therapy and Occupational Therapy. He core quires max assist to be able to sit. Or to return supine to bed. He is able to perform rolling from side to side. Needs multiple, multiple cues to sit and be coaxed. However, at one point the patient started refusing to work with physical therapy. There is a sometimes occasional language barrier but we use translation and nursing staff to be able to translate for him. He began refusi ng to work with physical therapy and refusal would take the form of turning his back to them and covering his face and head with the sheets. was unable to coax him to work with physical therapy either. During his stay his diabetes was treated with insulin short acting and long- acting. At discharge he is on Lantus 12 units at breakfast. He had occasional hypoglycemia and as such he will be transition back to Lantus 10 units of breakfast which was his admitting dose. The only other change we did with his medication from admission was reduced Zestril from 10 mg a day to 2.5 mg daily. He has been seen by Palliative care and her note: JOHNATHON ALDANA E Male : 1940 [facility] [id number] 12/25/21 15:57 - Palliative Care Note by Oksana Martinez [facility] Num: [id number] : 1940 Patient Age: 81 Courtesy Visit. Met with , was visiting patient. Is aware patient most likely will discharge home over weekend. They do have equipment in place, and are working towards getting things set up. She does understand he has not made much progress, the goal is to see what he can do with home health team. I did review with her POLST, reports they do have a POLST at home with DO NOT RESUSCITATE, unclear if it selective treatments or comfort focused care, but did have a fairly lengthy conversation regarding her goals for her . She is praying that he will get better and continue to improve, though she has worked in nursing homes and does understand decline. Discussed with her I had talk with her children about focusing on comfort, and not transitioning back to the hospital. At the point that he starts to decline. She does understand she is expecting him to decline at some point, is hoping though he will do somewhat better at home.Sent to request of her outpatient referral from PCP, will follow up in 2 to 3 weeks, to evaluate home setting, reassess POLST and confirm and home, as well as evaluate for ongoing palliative versus hospice care. * Discharge exam had a temperature of 37.1. Blood pressure 137/57. Pulse 85. Respirations 18. 92% on room air. He has an occasional cough. He is an elderly Turkmen male who weighs 52 kg and is 5 foot 4 inches tall. Eyes are open, he follows me in the room. But is nonverbal. Neck has shotty adenopathy but supple. Lungs have diminished breath sounds at the bases with an occasional rhonchi that prompts him to have a cough. He does not bring up the phlegm and swallows it. Regular rate and rhythm. The abdomen is soft, hypoactive bowel sounds, nontender. No distention. Last bowel movement was December 24. He is not eating much of his food. Anywhere between 10 to 75% throughout his stay. He does move all extremities and withdraws to pain. He is occasionally verbal and does a lot of grunting communication. He does speak fluidly when he speaks to Turkmen nursing or his . He requires a two-person max assist to sit him up. He is not ambulatory. He is completely dependent for bathing, feeding. - ALLERGIES Allergies/Adverse Reactions: Allergies Allergy/AdvReac Type Severity Reaction Status Date / Time aspirin Allergy Unknown Verified 12/07/21 21:59 - MEDICATIONS Home Medications: Ambulatory Orders Medication Instructions Recorded Confirmed Glimepiride [Amaryl] 4 mg PO DAILYWM 12/07/21 12/08/21 risperiDONE [Risperdal] 0.25 mg PO BID 12/07/21 12/08/21 Apixaban [Eliquis] 5 mg PO BID #60 tablet 12/19/21 Atorvastatin [Lipitor] 40 mg PO QPM #30 tablet 12/19/21 Insulin Aspart [NovoLOG] 3 - 11 unit SUBQ 12/19/21 0800,1200,1700,2100 #2 pe Insulin Aspart [NovoLOG] 3 unit SUBQ TIDWM #1 pe 12/19/21 Insulin Glargine [Lantus Solostar] 10 unit SUBQ QDBREAKFAST #1 pe 12/19/21 Metoprolol Tartrate [Lopressor] 25 mg PO BID #60 tablet 12/19/21 Multivitamin W/Minerals [Theragran 1 tab PO DAILYWM #30 tablet 12/19/21 M] traZODone [Desyrel] 50 mg PO QPM PRN #10 tablet 12/19/21 lisinopriL [Zestril] 2.5 mg PO DAILY #30 tablet 12/28/21 - LABS Result Diagrams: 12/20/21 08:57"
[2021-12-28] MEDS: INSULIN GLARGINE 300 UNIT/3 ML PEN SUBQ SCH (07:59)
[2021-12-28] MEDS: GLIMEPIRIDE 2 MG TABLET PO SCH (07:59)
[2021-12-28] MEDS: MULTIVITAMIN W/MINERALS TABLET PO SCH (08:00)
[2021-12-28] MEDS: APIXABAN 5 MG TABLET PO SCH (08:00)
[2021-12-28] MEDS: INSULIN ASPART 300 UNIT/3 ML PEN SUBQ SCH (08:01)
[2021-12-28] MEDS: risperiDONE 0.25 MG TABLET PO SCH (08:01)
[2021-12-28] MEDS: lisinopriL 5 MG TABLET PO SCH (08:09)
[2021-12-28] MEDS: METOPROLOL TARTRATE 25 MG TABLET PO SCH (08:10)
[2021-12-28 08:11] VITALS: BP 137/57
== END 2021-12-28 09:30 | disposition home health service (06) | DRG 947 ==
LOC: MS2 12-19 11:34
PROVIDERS: ADMIT Internal Medicine; ATTEND Specialist
DX: R53.1 Weakness (principal); I21.9 Acute myocardial infarction, unspecified; U07.1 COVID-19; I48.20 Chronic atrial fibrillation, unspecified; J90 Pleural effusion, not elsewhere classified; F03.90 Unspecified dementia, unspecified severity, without behavioral disturbance, psychotic disturbance, mood disturbance, and anxiety; E11.40 Type 2 diabetes mellitus with diabetic neuropathy, unspecified; E11.319 Type 2 diabetes mellitus with unspecified diabetic retinopathy without macular edema; E11.649 Type 2 diabetes mellitus with hypoglycemia without coma; Z79.84 Long term (current) use of oral hypoglycemic drugs; Z66 Do not resuscitate; E78.00 Pure hypercholesterolemia, unspecified; Z51.5 Encounter for palliative care; I11.0 Hypertensive heart disease with heart failure; I50.9 Heart failure, unspecified; R32 Unspecified urinary incontinence; R35.0 Frequency of micturition; Z87.891 Personal history of nicotine dependence
CPT/HCPCS: 36415; 36600; 80048; 82803; 99221

== ENCOUNTER 2021-12-28 09:32 | Outpatient (CLI) | payer MEDICARE | END 2021-12-28 09:33 | disposition home or self-care (01) | LOC: EMS 09:32 | PROVIDERS: ATTEND Specialist | DX: R41.0 Disorientation, unspecified (principal); F03.90 Unspecified dementia, unspecified severity, without behavioral disturbance, psychotic disturbance, mood disturbance, and anxiety; Z74.01 Bed confinement status | CPT/HCPCS: A0425; A0428 ==